=== PATIENT | male | born 1965 | race Caucasian/White ===

== ENCOUNTER → 2020-06-07 00:13 | Outpatient (CLI) | payer OTHER, SELFPAY ==
[2020-06-07 17:44] LABS: SARS-CoV-2 RNA PCR Negative
== END ==
PROVIDERS: PCP Physician Assistant; Visit Provider Internal Medicine Gastroenterology
DX: Z01.812 Encounter for preprocedural laboratory examination (principal); Z20.822 Contact with and (suspected) exposure to COVID-19
CPT/HCPCS: C9803; U0003; U0005

== ENCOUNTER 2020-06-10 00:40 | Day surgery (SDC) | payer OTHER, SELFPAY ==
[2020-05-27 13:07] VITALS: BMI 23.7
[2020-06-10] MEDS: LACTATED RINGERS 1,000 ML 150 ML IV CONT (09:03)
[2020-06-10 09:05] VITALS: BP 182/98; PULSE 89; RESP 16; TEMP 36.6; O2SAT 100; BMI 22.7
--- NOTE | 2020-06-10 09:13 | P.PNAN_ITS ---
Anes - Initial Pre Proc Eval Procedure: Operation Date: 06/10/20 10:00 Proposed Procedures p Esophagogastroduodenoscopy & Colonoscopy - Anderson Hardin MD Date/Time: 06/10/20 09:13 Surgeon: Anderson Hardin MD Pre Op Diagnosis: NAYANA Patient Data Age: 55 Gender: M Height: 5 ft 10 in Weight: 71.9 kg Last Vital Signs Temp 98 F 06/10/20 09:05 Pulse 89 06/10/20 09:05 Resp 16 06/10/20 09:05 BP 182/98 H 06/10/20 09:05 Pulse Ox 100 06/10/20 09:05 Allergies Allergy/AdvReac Type Severity Reaction Status Date / Time No Known Allergies Allergy Verified 06/10/20 08:58 Home Medications Medication Instructions Recorded Confirmed Type aspirin 81 mg PO DAILY 05/27/20 05/27/20 History clopidogrel 75 mg PO DAILY 05/27/20 05/27/20 History enalapril maleate 10 mg PO DAILY 05/27/20 05/27/20 History furosemide 20 mg PO DAILY 05/27/20 05/27/20 History metoprolol tartrate 25 mg PO BID 05/27/20 05/27/20 History Patient hx anesthesia problems: none Family hx anesthesia problems: none [facility] Past Medical History Medical History (Updated 06/10/20 @ 09:13 by Heber Adams MD) CAD (coronary artery disease) Chronic kidney disease (CKD) stage G1/A2, glomerular filtration rate (GFR) equal to or greater than 90 mL/min/1.73 square meter and albuminuria creatinine ratio between 30-299 mg/g Hyperlipidemia Hypertension Social History Social History Smoking packs per day: 1 Smoking cigarettes per day: 20.0 Years smoked: 46 Smoking pack-years: 46.00 Smoking status: Current every day smoker Tobacco type: cigarettes Alcohol intake: current Drinks per week: 2 Substance use type: does not use Living arrangements: with family Spiritual care concerns: No Anes - Eval Final PreProcedure Day of Procedure 06/10/20 09:13 Patient weight: normal Heart: regular rate and rhythm Lungs: clear to auscultation Airway: Mallampati scale class II Neurological: alert and oriented Last oral intake: >/= 8 hours ASA classification: III Emergent: no Anesthetic plan: proceed Anesthesia type and monitoring: general GIVS and standard monitoring Informed Consent: The patient's anesthetic plan and its attendant risks and benefits were discussed with the patient/family/POA. Questions were solicited and answers provided to the satisfaction of the patient/family/POA.
--- NOTE | 2020-06-10 09:14 | PM.HPGS ---
History of Present Illness History of Present Illness Consent: Risks, benefits, and alternatives have been discussed and questions answered. Patient agrees to proceed with procedure. Chief complaint: NAYANA Narrative: Dawit Marino is a 55 year old male with NAYANA, denies overt gib but never had scopes. Review of Systems Constitutional: Constitutional: Denies headache(s) and Denies weakness Eyes: Eyes: Denies blurry vision ENT: Reports Normal hearing present, Denies headache(s) and Denies neck pain Cardiovascular: Cardiovascular: Denies chest pain and Denies dyspnea Respiratory: Respiratory: Denies dyspnea Gastrointestinal: Gastrointestinal: Reports no additional gastrointestinal complaints Genitourinary: Genitourinary: Denies dysuria Musculoskeletal: Musculoskeletal: Denies neck pain Integumentary/Breasts: Skin/Breast: Denies dry skin Neurologic: Reports Normal hearing present, Denies headache(s) and Denies weakness Psychiatric: Psychiatric: Denies anxiety Endocrine: Endocrine: Denies change in body appearance Hematologic/Lymphatic: Hematologic/Lymphatic: Denies easy bleeding Allergic/Immunologic: Allergic/Immunologic: Denies urticaria PMFSH Past Medical History Medical History (Updated 06/10/20 @ 09:14 by Anderson Hardin MD) CAD (coronary artery disease) Chronic kidney disease (CKD) stage G1/A2, glomerular filtration rate (GFR) equal to or greater than 90 mL/min/1.73 square meter and albuminuria creatinine ratio between 30-299 mg/g Hepatitis C infection Hyperlipidemia Hypertension Iron deficiency anemia Social History Social History Smoking packs per day: 1 Smoking cigarettes per day: 20.0 Years smoked: 46 Smoking pack-years: 46.00 Smoking status: Current every day smoker Tobacco type: cigarettes Alcohol intake: current Drinks per week: 2 Substance use type: does not use Living arrangements: with family Spiritual care concerns: No Meds Home Medications and Allergies Home Medications Medication Instructions Recorded Confirmed Type aspirin 81 mg PO DAILY 05/27/20 05/27/20 History clopidogrel 75 mg PO DAILY 05/27/20 05/27/20 History enalapril maleate 10 mg PO DAILY 05/27/20 05/27/20 History furosemide 20 mg PO DAILY 05/27/20 05/27/20 History metoprolol tartrate 25 mg PO BID 05/27/20 05/27/20 History Allergies Allergy/AdvReac Type Severity Reaction Status Date / Time No Known Allergies Allergy Verified 06/10/20 08:58 Vital Signs Vital Signs - 24 hr 06/10/20 09:05 Temperature 98 F Pulse Rate 89 Respiratory Rate 16 Blood Pressure 182/98 H Pulse Oximetry 100 Exam Const: General: comfortable and no acute distress HENMT: General nose exam: Normal nares present Eyes: General: appearance normal, both eyes and all related structures Neck: Neck: no JVD Resp: Auscultation: clear to auscultation bilaterally Cardio: Rate: regular rate Rhythm: regular rhythm GI: Inspection: non-distended GI Palp: Yes Soft to palpation Skin: General skin exam: normal color Neuro: General: gait normal Speech: normal speech Extrem: General: normal to inspection Psych: Mental Status: mental status grossly normal Assessment and Plan Assessment and plan (1) Iron deficiency anemia: Code(s): D50.9 - Iron deficiency anemia, unspecified Status: Acute Assessment and Plan: egd and colonoscopy to assess if any gi blood loss (2) Hepatitis C infection: Code(s): B19.20 - Unspecified viral hepatitis C without hepatic coma Status: Acute Assessment and Plan: we can see him in office to discuss options of treatment (will need blood work)
[2020-06-10 09:45] VITALS: BP 160/101; PULSE 91; RESP 21; O2SAT 100
[2020-06-10 09:55] VITALS: BP 150/98; PULSE 85; RESP 17; O2SAT 100
[2020-06-10 10:05] VITALS: BP 193/96; PULSE 83; RESP 19; O2SAT 100
--- NOTE | 2020-06-10 10:52 | SUR.OPER ---
EGD START 918, END 923 COLONOSCOPY START 928, END 943
== END 2020-06-10 10:16 | disposition home or self-care (01) ==
PROVIDERS: PCP Physician Assistant; Visit Provider Internal Medicine Gastroenterology
PROC: 0DJ08ZZ Inspection of Upper Intestinal Tract, Via Natural or Artificial Opening Endoscopic (ICD-10-PCS; CPT 43235; principal; 2020-06-10 10:00)
DX: Z12.11 Encounter for screening for malignant neoplasm of colon (principal); D50.0 Iron deficiency anemia secondary to blood loss (chronic); D12.5 Benign neoplasm of sigmoid colon; K21.00 Gastro-esophageal reflux disease with esophagitis, without bleeding; K57.30 Diverticulosis of large intestine without perforation or abscess without bleeding; K64.8 Other hemorrhoids; Z79.82 Long term (current) use of aspirin; I25.10 Atherosclerotic heart disease of native coronary artery without angina pectoris; I13.10 Hypertensive heart and chronic kidney disease without heart failure, with stage 1 through stage 4 chronic kidney disease, or unspecified chronic kidney disease; E11.22 Type 2 diabetes mellitus with diabetic chronic kidney disease; N18.2 Chronic kidney disease, stage 2 (mild); E78.5 Hyperlipidemia, unspecified; F17.210 Nicotine dependence, cigarettes, uncomplicated; B19.20 Unspecified viral hepatitis C without hepatic coma
CPT/HCPCS: 43239; 45385; 88305; J2704; J7120

== ENCOUNTER 2022-10-14 15:30 | Emergency (ER) | payer OTHER, SELFPAY ==
--- NOTE | ~2022-10-14 | CT_ITS ---
CTA OF right upper extremity EXAMINATION: CTA UE RT DATE: 10/14/2022 17:47 INDICATION: Right arm redness, swelling, and pain. TECHNIQUE: Computed tomography angiography (CTA) of the right upper extremity was performed 100 mL Om nipaque 350 intravenous contrast in the arterial phase. Automated exposure control and iterative elvi nstruction technique were employed. 3-D volume rendered imaging produced by the technologist on a [employer] workstation. The dose-length product was 279.49 mGy-cm. COMPARISON: None FINDINGS: Normal osseous mineralization. No radiographic evidence of osteomyelitis. No osseous fractu re or dislocation. Degenerative changes in the wrist. The visualized arteries and veins are normal. S ubcutaneous fat stranding and edema involving the entire right upper extremity. Heterogeneous, 5.1 x 13.9 cm collection in the belly of the biceps muscle, with mild rim enhancement. IMPRESSION: Extensive subcutaneous edema in the right upper extremity, may represent cellulitis in the appropriat e clinical context. Heterogeneous, 13.9 cm collection in the belly of the biceps muscle, intramuscula r abscess is favored given the history and subcutaneous changes. Reviewed, dictated and finalized at location K. IMPRESSION: Extensive subcutaneous edema in the right upper extremity, may represent cellul itis in the appropriate clinical context. Heterogeneous, 13.9 cm collection in the belly of the biceps muscle, intramuscular abscess is favored given the hist ory and subcutaneous changes.
--- NOTE | ~2022-10-14 | US_ITS ---
EXAMINATION: US venous doppler UE RT DATE: 10/14/2022 19:17 INDICATION: Right upper extremity swelling and pain TECHNIQUE: Grayscale ultrasound images without and with compression and Doppler ultrasound images of the right upper extremity veins were obtained. COMPARISON: None. FINDINGS: The visualized portions of the right internal jugular vein, subclavian vein, axillary vein, brachial veins, basilic vein, cephalic vein, radial vein, and ulnar vein are patent. Heterogeneous echogenic c ollection in the upper arm in the area of a palpable lump measuring 5.4 x 3.6 x 9.6 cm. Scattered are as of internal flow were present. IMPRESSION: No deep venous thrombosis in the right upper extremity. 9.6 cm heterogeneous intramuscular collection in the upper arm, with vascular flow. This finding most likely represents an extensive intramuscular hematoma, with areas of vascular flow, possibly relatin g to flow within muscle tissue that is intermixed with this mass. An abscess is considered less likely given the scattered internal vascular flow. A soft tissue mass i s considered less likely given rapid onset. Reviewed, dictated and finalized at location K. IMPRESSION: No deep venous thrombosis in the right upper extremity. 9.6 cm heterogeneous intramuscular collection in the upper arm, with vascular f low. This finding most likely represents an extensive intramuscular hematoma, w ith areas of vascular flow, possibly relating to flow within muscle tissue that is intermixed with this mass. An abscess is considered less likely given the scattered internal vascular flow . A soft tissue mass is considered less likely given rapid onset.
[2022-10-14 15:46] VITALS: BP 166/92; PULSE 113; RESP 20; TEMP 37.1; O2SAT 100
--- NOTE | 2022-10-14 16:25 | ED.UPPEXIN ---
HPI - Extremity Injury (Upper) General Chief Complaint: Extremity Injury, Upper Stated Complaint: right arm pain/swelling Time Seen by Provider: 10/14/22 15:47 History of Present Illness HPI narrative: Patient is a 57-year-old male presenting with right arm pain. Patient states that for the last 2 to 3 days his upper right arm has been red, swollen, painful. States that when he tries to squeeze his right hand he has sharp pains in his wrist. States that he was rubbing his arm to help with the pain and he then developed ecchymoses. He is concerned for a blood clot. He denies recent injuries or trauma. Denies fevers or chills, chest pain, shortness of breath. Denies further complaints. Related Data Home Medications Medication Instructions Recorded Confirmed aspirin 81 mg tablet,delayed 81 mg PO DAILY 05/27/20 08/28/21 release clopidogrel 75 mg tablet 75 mg PO DAILY 05/27/20 08/28/21 enalapril maleate 10 mg tablet 10 mg PO DAILY 05/27/20 08/28/21 furosemide 20 mg tablet 20 mg PO DAILY 05/27/20 08/28/21 metoprolol tartrate 25 mg tablet 25 mg PO BID 05/27/20 08/28/21 Allergies Allergy/AdvReac Type Severity Reaction Status Date / Time No Known Allergies Allergy Verified 10/14/22 15:48 Review of Systems Review of Systems: All systems reviewed & are unremarkable except as noted in HPI and below PMFSH Past Medical History Medical History CAD (coronary artery disease) Chronic kidney disease (CKD) stage G1/A2, glomerular filtration rate (GFR) equal to or greater than 90 mL/min/1.73 square meter and albuminuria creatinine ratio between 30-299 mg/g Hepatitis C infection Hyperlipidemia Hypertension Iron deficiency anemia Social History Social History Smoking packs per day: 1 Smoking cigarettes per day: 20.0 Years smoked: 46 Smoking pack-years: 46.00 Smoking status: Current every day smoker Tobacco type: cigarettes Alcohol intake: current Drinks per week: 2 Substance use type: does not use Living arrangements: with family Spiritual care concerns: No Exam Narrative: GENERAL: Well-appearing, well-nourished, and in no acute distress. HEAD: Normocephalic, atraumatic. EYES: PERRLA and EOMI. ENT: Nares clear, no rhinorrhea or epistaxis. Mucous membranes moist. NECK: Supple. CHEST: Clear to auscultation. No respiratory distress. HEART: Regular rate and rhythm. Normal peripheral pulses. ABDOMEN: Soft, nontender, nondistended EXTREMITIES: RUE with erythema and edema of upper arm along biceps, ecchymoses noted posterior upper extremity; shoulder ROM intact, elbow and wrist ROM limited 2/2 pain; distal pulses 2+; no crepitus, compartments feel soft SKIN: Warm, dry, no rash. NEURO: No focal deficits. Alert and oriented x3. PSYCH: Normal mood and affect. Course Vital Signs Vital signs: Vital Signs Temperature 98.7 F 10/14/22 15:46 Pulse Rate 113 H 10/14/22 15:46 Respiratory Rate 20 10/14/22 15:46 Blood Pressure 166/92 H 10/14/22 15:46 Pulse Oximetry 100 10/14/22 15:46 Oxygen Delivery Room Air 10/14/22 15:46 Temperature 98.7 F 10/14/22 15:46 Pulse Rate 74 10/14/22 19:45 Respiratory Rate 18 10/14/22 19:45 Blood Pressure 156/77 H 10/14/22 19:45 Pulse Oximetry 100 10/14/22 19:45 Oxygen Delivery Room Air 10/14/22 15:46 MDM - Extremity Injury (Upper) MDM Narrative Medical decision making narrative: Patient is a 57-year-old male presenting with right upper extremity swelling, redness, pain. Patient is tachycardic, otherwise vitals are within normal limits. Exam is remarkable for the above. CTA upper extremity is concerning for a 5 x 14 cm abscess within the belly of the biceps. There is associated cellulitis. No gas is noted. Patient does have a white count of nearly 15. Broad-spectrum antibiotics have been ordered. I spoke with ou
[2022-10-14 17:02] LABS: Basophils Absolute Auto 0.1 K/mm3 (0.0-0.1); Basophils Percent Auto 0.8 % (0.2-1.2); Eosinophils Absolute Auto 0.1 K/mm3 (0-0.3); Eosinophils Percent Auto 0.9 % (0-4.4); Hematocrit 36.3 % (42.0-52.0); Hemoglobin 11.8 g/dL (14.0-18.0); Immature Granulocyte Absolute 0.07 K/mm3 (0.00-0.031); Immature Granulocyte Percent A 0.5 % (0-0.5); Lymphocytes Absolute Auto 2.36 K/mm3 (0.9-3.2); Lymphocytes Percent Auto 16.2 % (18.3-44.2); Mean Corpuscular HGB Conc 32.5 g/dl (32-36); Mean Corpuscular Hemoglobin 29.8 pg (26-34); Mean Corpuscular Volume 91.7 fl (80-100); Mean Platelet Volume 10.3 fl (7.4-10.4); Monocytes Absolute Auto 1.9 K/mm3 (0.1-0.6); Monocytes Percent Auto 13.2 % (2.6-8.5); Neutrophils Percent Auto 68.4 % (45.5-73.1); Platelet Count Result 293 k/mm3 (150-375); Red Blood Count 3.96 M/mm3 (4.6-6.20); Red Cell Distribution Width 13.4 % (11.5-14.5); White Blood Count 14.6 K/mm3 (4.5-10.0)
[2022-10-14 17:13] LABS: Prothrombin Time 13.7 Seconds (11.1-14.7)
[2022-10-14 17:14] LABS: Partial Thromboplastin Time 27.5 SECONDS (22.3-36.8)
[2022-10-14] MEDS: HYDROmorphone HCL INJ (*CRX) 1 MG/ML SYR 0.5 MG IV PUSH ×2 (17:28→19:09)
[2022-10-14 17:29] LABS: Alanine Aminotransferase 30 U/L (6-50); Albumin Level 3.5 g/dL (3.5-5.1); Alkaline Phosphatase 62 U/L (38-126); Anion Gap 6 mmol/L (8-16); Aspartate Amino Transferase 42 U/L (17-59); Bilirubin,Total 0.7 mg/dL (0.2-1.3); Blood Urea Nitrogen 17 mg/dL (9-20); Calcium 8.4 mg/dL (8.4-10.2); Carbon Dioxide 22 mmol/L (22-30); Chloride 106 mmol/L (98-107); Estimated CRCL calculation 70 ml/min; Estimated Glomerular Filt Rate > 60; Glucose 118 mg/dL (65-110); Sodium 134 mmol/L (137-145)
[2022-10-14 18:19] VITALS: BP 147/83; PULSE 76; RESP 20; O2SAT 99
[2022-10-14 19:11] LABS: CRP 4.9 mg/dL (<1.0); Creatine Kinase 71 U/L (55-170)
[2022-10-14] MEDS: CEFEPIME 2 GM/NS 50 ML 2 GM/50 ML BAG IVPB (19:29)
[2022-10-14] MEDS: metroNIDAZOLE 500 MG/ISO 100ML 500 MG/100 ML BAG 100 MG IVPB (19:31)
[2022-10-14] MEDS: VANCOMYCIN 1,250 MG/NS 250 ML 1,250 MG/250 ML BAG 166.67 MG IVPB (19:33)
[2022-10-14 19:35] LABS: Erythrocyte Sedimentation Rate 58 mm/hr (0-20)
[2022-10-14 19:39] LABS: Lactic Acid Reflex 1.3 mmol/L (0.7-2.0)
[2022-10-14 19:45] VITALS: BP 156/77; PULSE 74; RESP 18; O2SAT 100
== END 2022-10-14 21:19 | disposition short-term general hospital (02) ==
PROVIDERS: Emergency Provider Emergency Medicine; PCP Physician Assistant
DX: M60.021 Infective myositis, right upper arm (principal); I25.10 Atherosclerotic heart disease of native coronary artery without angina pectoris; I12.9 Hypertensive chronic kidney disease with stage 1 through stage 4 chronic kidney disease, or unspecified chronic kidney disease; N18.9 Chronic kidney disease, unspecified
CPT/HCPCS: 36415; 73206; 80053; 82550; 83605; 85025; 85610; 85652; 85730; 86140; 87040; 93971; 96365; 96366; 96367; 96375; 96376; 99285; J0692; J1170; J1836; J3370; Q9967

== ENCOUNTER 2024-05-06 14:06 | Emergency (ER) | payer OTHER, SELFPAY ==
[2024-05-06 14:08] VITALS: BP 158/90; PULSE 119; RESP 16; TEMP 36.4; O2SAT 100
--- OUTSIDE RECORDS SUMMARY | 2024-05-06 14:09 | XMS_ITS | Patient Health Record ---
Author Organization [facility] Office Address [address] [place] [address] Care Team Providers Care Asbestos Pipe Supervisor Name Role Phone Jesus Alberto Jose Unavailable [phone] REASON FOR REFERRAL No Information MEDICATIONS Medication SIG (Take, Route, Frequency, Duration) Notes Start Date End Date Status Allopurinol 100 MG 1 tablet Orally Once a day for 90 day(s) 10/22/2023 07/18/2024 Active Calcitriol 0.25 MCG 1 capsule Orally Onc e a day for 90 day(s) 10/22/2023 07/18/2024 Active Ergocalciferol 1.25 MG (37773 UT) 1 capsule Orally Once a week for 90 day(s) 10/22/2023 07/18/2024 Active PROBLEMS Problem Type ICD Code Onset Dates Problem Status W/U Status Risk SNOMED Code Notes Problem Anxiety disorder, unspecified (F41.9) Active confirmed Anxiety disorde r (215145678) Problem Chronic kidney disease, stage 2 (mild) (N18.2) Active confirmed Chronic kidne y disease stage 2 (605565361) Problem Renal osteodystrophy (N25.0) Active confirmed Renal osteodystrophy (49130117) Problem Chronic fatigue, unspecified (R53.82) Active confirmed Chronic fatigue syndrome (disorder) (53216717) Problem Proteinuria, unspecified (R80.9) Active confirmed Proteinuria (78685197) Problem Essential hypertension (I10) Active confirmed Essential hypertension (82307024) Problem Chronic kidney disease, stage 3b (N18.32) Active confirmed Chronic kidney disease stage 3B (disorder) (918395438) Encounters Encounter Location Date Provider Diagnosis [facility] [address] [facility] [address] [place] [address] 08/18/2023 Jose Granda Chronic kidney disea se, stage 2 (mild) N18.2 ; Anxiety disorder, unspecified F41.9 ; Chronic fatigue, unspecified R53.82 ; Essential hypertension I10 ; Proteinuria, unspecified R80.9 and Renal osteodystrophy N25.0 [facility] [address] [place] [address] 09/15/2023 Jose Granda Chronic kidney disea se, stage 2 (mild) N18.2 ; Anxiety disorder, unspecified F41.9 ; Chronic fatigue, unspecified R53.82 ; Essential hypertension I10 ; Proteinuria, unspecified R80.9 and Renal osteodystrophy N25.0 [facility] [address] [place] [address] 10/22/2023 Jose Granda Chronic kidney disea se, stage 3b N18.32 ; Essential hypertension I10 ; Anxiety disorder, unspecified F41.9 ; Renal osteodystrophy N25.0 ; Proteinuria, unspecified R80.9 and Chronic fatigue, unspecified R53.82 [facility] [address] [place] [address] 11/24/2023 Jose Granda [facility] [address] [place] [address] 12/22/2023 Jose Don [id number] [place] [address] 10/22/2023 Jose Granda ASSESSMENTS Encounter Date Diagnosis Assessment Notes Treatment Notes Treatment Clinical Notes Section Notes 08/18/2023 Chronic kidney disease, stage 2 (mild) (ICD-10 - N18.2) 09/15/2023 Chronic kidney disease, stage 2 (mild) (ICD-10 - N18.2) 10/22/2023 Chronic kidney disease, stage 3b (ICD-10 - N18.32) 08/18/2023 Anxiety disorder, unspecified (ICD-10 - F41.9) 09/15/2023 Anxiety disorder, unspecified (ICD-10 - F41.9) 10/22/2023 Essential hypertension (ICD-10 - I10) 10/22/2023 Anxiety disorder, unspecified (ICD-10 - F41.9) 09/15/2023 Chronic fatigue, unspecified (ICD-10 - R53.82) 08/18/2023 Chronic fatigue, unspecified (ICD-10 - R53.82) 08/18/2023 Essential hypertension (ICD-10 - I10) 09/15/2023 Essential hypertension (ICD-10 - I10) 10/22/2023 Renal osteodystrophy (ICD-10 - N25.0) 10/22/2023 Proteinuria, unspecified (ICD-10 - R80.9) 09/15/2023 Proteinuria, unspecified (ICD-10 - R80.9) 08/18/2023 Proteinuria, unspecified (ICD-10 - R80.9) 08/18/2023 Renal osteodystrophy (ICD-10 - N25.0) 09/15/2023 Renal osteodystrophy (ICD-10 - N25.0) 10/22/2023 Chronic fatigue, unspecified (ICD-10 - R53.82) PLAN OF TREATMENT No Information
--- OUTSIDE RECORDS SUMMARY | 2024-05-06 14:09 | XMS_ITS ---
Author Organization [facility] Address [address] [facility] [address] [place] [address] Care Team Providers Care Playground Equipment Erector Name Role Phone Jose Granda Unavailable [phone] Encounters Encounter Location Date Provider Diagnosis [facility] [address] [facility] [address] [place] [address] 11/24/2023 Jose Granda PLAN OF TREATMENT No Information Progress Notes * Dawit MARINODOB:[birth year] (59 yo M)Acc No.[id number]:11/24/2023 Progress Notes Patient: Dawit MARINO Provider: MD SHAAN, Mickie.Trent.C.P, F.A.S.N. 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 Date: 11/24/2023
--- OUTSIDE RECORDS SUMMARY | 2024-05-06 14:09 | XMS_ITS | Continuity of Care Document ---
Author Organization [facility] Address [address] [facility] [address] [place] [address] Phone Care Team Providers Care Lotus Notes Developer Name Role Phone Gus Sims Unavailable Unavailable Procedures Procedure Date Eye Exam Established Pt Remove Foreign Body From Eye Office/outpatient Visit, Est Post-op Follow-up Visit Post-op Follow-up Visit Post-op Follow-up Visit Clear Lens Exchange-Premium Lens 2007 Post-op Follow-up Visit Dec- Post-op Follow-up Visit Oct- Clear Lens Exchange-Premium Lens Oct-2007 No Charge Refractive Evaluation 008 Office/outpatient Visit, Est Office/outpatient Visit, Est Corneal Topography Advance Directives Directive Yes / No Effective Date File Name No Information Encounters Encounter Description Practice Location Reason(s) For Visit Diagnoses Date Provider Providers Copied on Encounter [facility], [address] [place] [address] [address], [place], [place], [id number], [place] tel:[phone] SEC [facility] No Information 9-200 9 Levi Weber. [address] [facility] [address], [place], [address], [place]. tel:[phone] Office/outpat ient Visit, Est [facility], [address], [place], [place], [id number], tel:[phone] SEC [facility] No Information Mar-2 4-200 9 Krishnasamy Gus. [address] [facility] [address], [place], [address], [place]. tel:[phone] [facility] Eye [facility], [address], [place], [place], [id number], [place] tel:[phone] SEC [facility] No Information Dec-1 5-200 8 Krishnasamy Gus. [address] [facility] [address], [place], [address], [place]. tel:[phone] [facility], [address], [place], [place], [id number], [place] tel:[phone] [facility] No Information Nov-1 1-200 8 Krishnasamy Gus. [address] [facility] [address], [place], [address], [place]. tel:[phone] [facility], [address], [place], [place], [id number], [place] tel:[phone] [facility] [place] No Information Oct-3 1-200 8 Krishnasamy Gus. [address] [facility] [address], [place], [address], [place]. tel:[phone] [facility], [address], [place], [place], [id number], [place] tel:[phone] [facility] No Information Oct-3 0-200 8 Krishnasamy Gus. [address] [facility] [address], [place], [address], [place]. tel:[phone] [facility], [address], [place], [place], [id number], [place] tel:[phone] SEC [facility] No Information Oct-2 4-200 8 Krishnasamy Gus. [address] [facility] [address], [place], [address], [place]. tel:[phone] [facility], [address], [place], [place], [id number], [place] tel:[phone] [facility] [place] No Information Oct-1 7-200 8 Krishnasamy Gus. [address] [facility] [place] [address], [place], [address], [place]. tel:[phone] [facility], [address], [place], [place], [id number], [place] tel:[phone] [facility] No Information Oct-1 6-200 8 Krishnasamy Gus. [address] [facility] [place] [address], [place], [facility], [place]. tel:[phone] [facility], [address] [place] [address] [address], [place], [place], [id number], [place] tel:[phone] SEC [facility] No Information Sep-2 4-200 8 Krishnasamy Gus. [address] [facility] [place] [address], [place], [facility], [place]. tel:[phone] Office/outpat ient Visit, [facility] Eye [facility], [address] [place] [address] [address], [place], [place], [id number], [place] tel:[phone] [facility] [place] No Information Sep-0 9-200 8 Krishnasamy Gus. [address] [facility] [place] [address], [place], [address], [place]. tel:[phone] Office/outpat ient Visit, [facility], [address], [place], [place], [id number], [place] tel:[phone] [facility] [place] No Information Sep-0 3-200 8 Doisy Edward. [address], [place], [address], [place]. tel:[phone] [facility], [address], [place], [place], [address], [place] tel:[phone] SEC [facility] No Information 8 [facility]. [address] [facility], [place], [place], [id number], [place]. tel:[phone] Referring Provider: Mahamed Newman [facility] [address], [place], [address]. tel:[phone] Family History Family Member Type Diagnosis Age At Onset No Information Payers Payer name Insurance type Covered libertarian ID Authoriza tion(s) No Information Social History Type Description Quantity Date Captured Comments Sex Male Smoking Status No Information Chief Complaint And Reason For Visit No Information Reason For Referral Reason For Referral No Information History Of Present Illness Encounter Date Complaint History Of Prese nt Illness No Information Functional Status Date Functional Assessmen t No Information Instructions Date Instruction Additional Infor mation No Information Assessments Type Assessment Date No Information Patient Care Teams Name Effective Dates (start - stop) Status Members No Information
--- OUTSIDE RECORDS SUMMARY | 2024-05-06 14:09 | XMS_ITS ---
Author Organization [facility] Address [address] [facility] [address] [place] [address] Care Team Providers Care Bag Worker Name Role Phone Jose Granda Unavailable [phone] Encounters Encounter Location Date Provider Diagnosis [facility] [address] [facility] [address] [place] [address] 12/22/2023 Jose Granda PLAN OF TREATMENT No Information Progress Notes * Dawit MARINODOB:[birth year] (59 yo M)Acc No.[id number]:12/22/2023 Progress Notes Patient: Dawit MARINO Provider: MD SHAAN, Mickie.Trent.C.P, F.A.S.N. :1965 Age:58 Y Sex:Male Date:12/22/2023 Address:[address] [place], [place] [id number] Subjective: * Chief Complaints: * * Medical History: Objective: Assessment: Plan: * Treatment: * Billing Information: * Visit Code: * Procedure Codes: * OND MILL OPERATOR Sign off status: Pending * Provider: MD SHAAN, Mickie.Trent.C.P, F.A.S.N. Date: 12/22/2023
--- OUTSIDE RECORDS SUMMARY | 2024-05-06 14:09 | XMS_ITS | Referral Summary ---
Author Organization [facility] Address [facility] [place] [address] Care Team Providers Care Wing Coverer Name Role Phone Karla Eddy PA-C Primary Care Provide r Source Comments [facility],non-owned Affiliates and Associated Physician Practices is amultiple site organization consisting of ambulatory clinics and hospital sitesin [place], [place], [place] and [place]. This disclosure is being madepursuant to the Care Everywhere program and may not contain all information available regarding this patient. Last updated 17.[facility] [employer] Allergies No known active allergies Medications * Be aware that medications may not be up to date on this document. Alwaysverify current medications with the patient. Medication Sig Dispensed Refills Start Date End Date Status acetaminophen (TYLENOL) 325 MG tablet Take 2 (two) tablets by mouth every 6 hours Maximum allowable Acetaminophen amount = 4 Grams (4000 mg) / 24 hours. 06/12/2021 Active aspirin (ASPIRIN) 81 MG chew tablet Take 1 (one) tablet by mouth once daily 06/13/2021 Active albuterol HFA (PROVENTIL HFA) 108 (90 Base) MCG/ACT inhaler Inhale 2 (two) puffs by mouth every 4 hours as needed 6.7 g 06/12/2021 Active enalapril (VASOTEC) 10 MG tablet Take 1 (one) tablet by mouth once daily 06/13/2021 Active metoprolol tartrate (LOPRESSOR) 25 MG tablet Take 1 (one) tablet by mouth 2 times daily 06/12/2021 Active clopidogrel (PLAVIX) 75 MG tablet Take 1 (one) tablet by mouth once daily 06/13/2021 Active furosemide (LASIX) 20 MG tablet furosemide 20 mg tablet 02/12/2021 Active amLODIPine (NORVASC) 5 MG tablet Take 1 (one) tablet by mouth once daily Active senna (SENOKOT) 8.6 MG tablet Take by mouth once daily Active omeprazole (PRILOSEC) 40 MG capsule Take 1 (one) capsule by mouth daily before breakfast Active Gauze Pads & Dressings (Gauze Dressing) 4 X4 PADS Use 1 Pad 2 times daily 1 Each 10/16/2022 Active Active Problems Problem Noted Date Diagnosed Date Abscess 10/15/2022 Arm swelling 10/15/2022 Cellulitis of right upper extremity 10/15/2022 Acute blood loss anemia 06/12/2021 Impaired mobility and ADLs 06/12/2021 Acute pain due to trauma 06/12/2021 Trauma 06/11/2021 Multiple closed fractures of ribs of left side 0 06/11/2021 Closed fracture of transverse process of lumbar vertebra 06/11/2021 L1 vertebral fracture 06/11/2021 Immunizations Name Administration Dates Next Due Financetesetudes primary monoval ent 12+ yr 0.3mL Purple cap 03/25/2021,03/04/2021 INFLUENZA VACCINE, QUADR. (F LUZONE; FLULAVAL; FLUARIX; AFLURIA QUADRIVALENT; 6MO+), 0.5 ML (IIV4) 06/12/2021 Social History Tobacco Use Types Packs/Day Years Used Date Smoking Tobacco: Every Day Cigarettes 1 15 Smokeless Tobacco: Never Tobacco Cessation:Ready to Q uit: Not Asked; Counseling Given: No Alcohol Use Standard Drinks/Week Comments Yes 0 (1 standard drink = 0.6 oz pur e alcohol) 6 pack/week AUDIT-C Answer Date Recorded Q1: How often do you have a drink containing alc ohol? Monthly or less 06/11/2021 Q2: How many drinks containi ng alcohol do you have on a typical day when you are drinking? 1 or 2 06/11/2021 Q3: How often do you have si x or more drinks on one occasion? Never 06/11/2021 Sex and Gender Information Value Date Recorded Sex Assigned at Not on file Gender Identity Not on file Sexual Orientation Not on file Last Filed Vital Signs Vital Sign Reading Time Taken Comments Blood Pressure 157/84 11/11/2022 2:19 PM CDT Pulse 83 11/11/2022 2:19 PM CDT Temperature 36.3 C (97.3 F) 11/11/2022 2:19 PM CDT Respiratory Rate 16 10/16/2022 4:11 AM CDT Oxygen Saturation 98% 11/11/2022 2:19 PM CDT Inhaled Oxygen Concentration - - Weight 69.9 kg (154 lb) 11/11/2022 2:19 PM CDT Height 180.3 cm (5' 11 ) 11/11/2022 2:19 PM CDT Body Mass Index 21.48 11/11/2022 2:19 PM CDT Functional Status Functional Status Response Date of Assess ment Is person deaf or have serious hearing difficult y? No 10/15/2022 Is person blind or have serious difficulty seein g? No 10/15/2022 Does person have serious dif ficulty walking/climbing stairs? No 10/15/2022 Does person have difficulty dressing/bathing? No 10/15/2022 Does person have difficulty doing errands alone? No 10/15/2022 Cognitive Status Response Date of Assessm ent Does person have difficulty concentrating/remembering/making decisions? No 10/15/2022 Plan of Treatment Not on file Procedures Procedure Name Priority Date/Time Associated Diagnosis Comments LIPID PROFILE Routine 10/15/2022 8:26 AM CDT from Last 3 Months or Most Recently Relevant to Health Maintenance Results * (ABNORMAL) LIPID PROFILE (10/15/2022 8:26 AM CDT) [facility] Signature Cholesterol Total 140 <200 mg/dL 10/15/2022 9:02 AM CDT [facility] HDL 35(L) >40 mg/dL 10/15/2022 9:02 AM CDT [facility] Comment: ATP III Classification of HDL Cholesterol: <40 mg/dL: Considered a major risk factor. >60 mg/dL: Considered a negative risk factor. LDL Calculated 94 <100 mg/dL 10/15/2022 9:02 AM T [facility] Comment: ATP III Classification of LDL Cholesterol: <100 mg/dL: Optimal 100 - 129 mg/dL: Near Optimal/Above Optimal 130 - 159 mg/dL: Borderline High 160 - 189 mg/dL: High >190 mg/dL: Very High Triglycerides 53 <150 mg/dL 10/15/2022 9:02 AM CDT [facility] Comment: ATP III Classification of Triglycerides: <150 mg/dL: Normal 150 - 199 mg/dL: Borderline High 200 - 400 mg/dL: High >500 mg/dL: Very High Blood BLOOD SPECIMEN / Unknown Lab Venipuncture / Unknown 10/15/2022 8:26 AM CDT 10/15/2022 8:31 AM CDT Gee Real MD LAB - CHEMISTRY VITO Gillespie Organization Address City/State/[facility] Co de Phone Number [facility] [address] [place] [address], [facility] [phone] from Last 3 Months or Most Recently Relevant to Health Maintenance Advance Directives * Full Code (Latest Code Status on File) Date Activated Date Inactivated Comments 10/15/2022 1:42 AM 10/16/2022 9:13 AM * Full Code Date Activated Date Inactivated Comments 06/11/2021 9:53 AM 06/12/2021 7:12 PM * Full Code Date Activated Date Inactivated Comments 02/21/2009 4:28 PM 02/22/2009 5:44 AM Care Teams Wing Coverer Relationship Specialty Start Date End Date Karla Eddy PA-C [address] [place] [id number] [facility] - General 07/17/20
--- OUTSIDE RECORDS SUMMARY | 2024-05-06 14:09 | XMS_ITS | Patient Health Summary ---
Author Organization [facility] Address [facility] [place] [address] Care Team Providers Care Alining Inspector Name Role Phone Karla Eddy PA-C Primary Care Provide r Note from [facility],non-owned Affiliates and Associated Physician Practices is amultiple site organization consisting of ambulatory clinics and hospital sitesin [place], [place], [place] and [place]. This disclosure is being madepursuant to the Care Everywhere program and may not contain all information available regarding this patient. Last updated 17.[facility] Allergies No known active allergies Medications * Be aware that medications may not be up to date on this document. Alwaysverify current medications with the patient. * acetaminophen (TYLENOL) 325 MG tablet(Started 06/12/2021) Take 2 (two) tablets by mouth every 6 hours Maximum allowable Acetaminophen amount = 4 Grams (4000 mg) / 24 hours. * aspirin (ASPIRIN) 81 MG chew tablet(Started 06/13/2021) Take 1 (one) tablet by mouth once daily * albuterol HFA (PROVENTIL HFA) 108 (90 Base) MCG/ACT inhaler(Started 06/12/2021) Inhale 2 (two) puffs by mouth every 4 hours as needed * enalapril (VASOTEC) 10 MG tablet(Started 06/13/2021) Take 1 (one) tablet by mouth once daily * metoprolol tartrate (LOPRESSOR) 25 MG tablet(Started 06/12/2021) Take 1 (one) tablet by mouth 2 times daily * clopidogrel (PLAVIX) 75 MG tablet(Started 06/13/2021) Take 1 (one) tablet by mouth once daily * furosemide (LASIX) 20 MG tablet(Started 02/12/2021) furosemide 20 mg tablet * amLODIPine (NORVASC) 5 MG tablet Take 1 (one) tablet by mouth once daily * senna (SENOKOT) 8.6 MG tablet Take by mouth once daily * omeprazole (PRILOSEC) 40 MG capsule Take 1 (one) capsule by mouth daily before breakfast * Gauze Pads & Dressings (Gauze Dressing) 4 X4 PADS(Started 10/16/2022) Use 1 Pad 2 times daily Active Problems Problem Noted Date Diagnosed Date Abscess 10/15/2022 Arm swelling 10/15/2022 Cellulitis of right upper extremity 10/15/2022 Acute blood loss anemia 06/12/2021 Impaired mobility and ADLs 06/12/2021 Acute pain due to trauma 06/12/2021 Trauma 06/11/2021 Multiple closed fractures of ribs of left side 0 06/11/2021 Closed fracture of transverse process of lumbar vertebra 06/11/2021 L1 vertebral fracture 06/11/2021 Immunizations * Covid Pfizer primary monovalent 12+ yr 0.3mL Purple cap(Given 03/25/2021, 03/04/2021) * INFLUENZA VACCINE, QUADR. (FLUZONE; FLULAVAL; FLUARIX; AFLURIA QUADRIVALENT; 6MO+), 0.5 ML (IIV4)(Given 06/12/2021) Social History Tobacco Use Types Packs/Day Years [...] Mass Index 21.48 11/11/2022 2:19 PM CDT Procedures * BASIC METABOLIC PANEL (CALCIUM TOTAL)(Performed 10/16/2022) * MAGNESIUM BLOOD(Performed 10/16/2022) * PHOSPHORUS BLOOD(Performed 10/16/2022) * CBC W/O DIFFERENTIAL(Performed 10/16/2022) * XR SHOULDER RIGHT 2VW OR MORE(Performed 10/15/2022) Performed for Acute pain due to trauma * XR HUMERUS RIGHT 2VW OR MORE(Performed 10/15/2022) Performed for Acute pain due to trauma * XR FOREARM RIGHT 2VW OR MORE(Performed 10/15/2022) Performed for Acute pain due to trauma * XR WRIST RIGHT 2VW(Performed 10/15/2022) Performed for Acute pain due to trauma * C-REACTIVE PROTEIN(Performed 10/15/2022) * ERYTHROCYTE SEDIMENTATION RATE(Performed 10/15/2022) * XR ELBOW RIGHT 3VW OR MORE(Performed 10/15/2022) Performed for Acute pain due to trauma * LIPID PROFILE(Performed 10/15/2022) * BASIC METABOLIC PANEL (CALCIUM TOTAL)(Performed 10/15/2022) * MAGNESIUM BLOOD(Performed 10/15/2022) * PHOSPHORUS BLOOD(Performed 10/15/2022) * CULTURE WOUND+GRAM STAIN(Performed 10/15/2022) * CULTURE ANAEROBE(Performed 10/15/2022) * IRRIGATION/DEBRIDEMENT EXTREMITY(Performed 10/15/2022) Performed for Abscess * ENDOTRACHEAL TUBE NOTE(Performed 10/15/2022) * CULTURE BLOOD(Performed 10/14/2022) * TYPE + SCREEN PANEL(Performed 10/14/2022) * CULTURE BLOOD(Performed 10/14/2022) * LACTIC ACID BLOOD(Performed 10/14/2022) * CBC W AUTO DIFFERENTIAL(Performed 10/14/2022) * COMPREHENSIVE METABOLIC PANEL(Performed 10/14/2022) * XR LUMBAR SPINE 2 OR 3VW(Performed 07/03/2021) Performed for Orthopedic aftercare * CARDIAC EKG ORDER(Performed 06/13/2021) * PHOSPHORUS BLOOD(Performed 06/12/2021) * MAGNESIUM BLOOD(Performed 06/12/2021) * BASIC METABOLIC PANEL (CALCIUM TOTAL)(Performed 06/12/2021) * CBC W/O DIFFERENTIAL(Performed 06/12/2021) * XR CHEST 1VW PORTABLE(Performed 06/12/2021) Performed for Closed fracture of multiple ribs of left side, initial encounter * URINE DRUG SCREEN IMMUNOASSAY(Performed 06/12/2021) * XR LUMBAR SPINE 2 OR 3VW(Performed 06/11/2021) Performed for Closed fracture of multiple ribs of left side, initial encounter, Closed fracture of transverse process of lumbar vertebra, initial encounter ([facility]) * CBC W/O DIFFERENTIAL(Performed 06/11/2021) * BLOOD TYPE VERIFICATION(Performed 06/11/2021) * EKG 12-LEAD(Performed 06/11/2021) Performed for Trauma * XR PELVIS 1 OR 2VW(Performed 06/11/2021) Performed for Trauma * XR CHEST 1VW PORTABLE(Performed 06/11/2021) Performed for Trauma * CT CHEST ABDOMEN PELVIS WO CONT(Performed 06/11/2021) Performed for Trauma * CT LUMBAR SPINE WO CONTRAST(Performed 06/11/2021) Performed for Trauma * CT THORACIC SPINE WO CONTRAST(Performed 06/11/2021) Performed for Trauma * CT CERVICAL SPINE WO CONTRAST(Performed 06/11/2021) Performed for Trauma * CT HEAD WO CONTRAST(Performed 06/11/2021) Performed for Trauma * TYPE + SCREEN PANEL(Performed 06/11/2021) * TEG 6S PLATELET MAPPING(Performed 06/11/2021) * TEG 6 GLOBAL HEMOSTASIS W/ LYSIS(Performed 06/11/2021) * PTT SLH(Performed 06/11/2021) * PT-INR [facility](Performed 06/11/2021) * CK BLOOD(Performed 06/11/2021) * CBC W AUTO DIFFERENTIAL(Performed 06/11/2021) * BASIC METABOLIC PANEL (CALCIUM TOTAL)(Performed 06/11/2021) * ALCOHOL ETHYL BLOOD(Performed 06/11/2021) * CREATININE - POCT INTERFACED(Performed 06/11/2021) * CARDIAC RHYTHM STRIP ORDER(Performed 02/25/2009) * XR SPINE 1 VIEW(Performed 02/21/2009) Performed for Back Pain Results * (ABNORMAL) CBC W/O DIFFERENTIAL (10/16/2022 1:43 AM CDT) Only the most recent of3 resultswithin the time period is included. WBC 18.5(H) 3.5 - 10.5 10 3/uL 10/16/2022 2:16 AM [facility] RBC 3.15(L) 4.30 - 5.70 10 6/uL 10/16/2022 2:16 AM [facility] Hemoglobin 9.3(L) 12.0 - 17.6 g/dL 10/16/2022 2:16 AM [facility] Hematocrit 28.0(L) 35.2 - 51.7 % 10/16/2022 2:16 AM [facility] MCV 88.9 80.7 - 98.3 fL 10/16/2022 2:16 AM [facility] MCH 29.5 26.7 - 34.0 pg 10/16/2022 2:16 AM [facility] MCHC 33.2 30.8 - 35.9 g/dL 10/16/2022 2:16 AM [facility] RDW-SD 42.7 36.0 - 50.0 fL 10/16/2022 2:16 AM [facility] RDW-CV 13.2 11.2 - 14.8 % 10/16/2022 2:16 AM [facility] Platelet Count 281 150 - 400 10 3/uL 10/16/2022 2:16 AM [facility] MPV 10.5 9.4 - 12.9 fL 10/16/2022 2:16 AM [facility] nRBC Absolute 0.00 0 10 3/uL 10/16/2022 2:16 AM [facility] nRBC Auto 0.0 0 /100 WBC 10/16/2022 2:16 AM [facility] Blood BLOOD SPECIMEN / Unknown Lab Venipuncture / Unknown 10/16/2022 1:43 AM CDT 10/16/2022 2:03 AM CDT Linda Young PA-C LAB - HEMATOLOGY ORDERABLES [facility] [address] [place] [address], [facility] [phone] * (ABNORMAL) BASIC METABOLIC PANEL (CALCIUM TOTAL) (10/16/2022 1:43 AM CDT) Only the most recent of4 resultswithin the time period is included. BUN 22 7 - 26 mg/dL 10/16/2022 2:28 AM [facility] Creatinine 1.16 0.71 - 1.16 mg/dL 10/16/2022 2:28 AM [facility] Sodium 136 136 - 145 mmol/L 10/16/2022 2:28 AM [facility] Potassium 3.9 3.5 - 4.5 mmol/L 10/16/2022 2:28 AM [facility] Chloride 109(H) 98 - 107 mmol/L 10/16/2022 2:28 AM [facility] CO2 25 22 - 29 mmol/L 10/16/2022 2:28 AM [facility] Glucose 135(H) 70 - 115 mg/dL 10/16/2022 2:28 AM [facility] Calcium 8.2(L) 8.4 - 10.2 mg/dL 10/16/2022 2:28 AM [facility] Anion Gap 6(L) 8 - 18 10/16/2022 2:28 AM [facility] BUN/Creatinine Ratio 19 7 - 23 10/16/2022 2:28 AM [facility] Osmolality Calculated 287 270 - 300 mOsm/kg 10/16/2022 2:28 AM [facility] eGFR by CKD-EPI 73(L) >=90 mL/min/1.7 3 m2 10/16/2022 2:28 AM CDT [facility] Blood BLOOD SPECIMEN / Unknown Lab Venipuncture / Unknown 10/16/2022 1:43 AM CDT 10/16/2022 2:03 AM CDT Gee Real MD LAB - CHEMISTRY VITO MANZO Performing Organization Address [facility]/ZIP Co de Phone Number [address] [address], [facility] [phone] * (ABNORMAL) PHOSPHORUS BLOOD (10/16/2022 1:43 AM CDT) Only the most recent of3 resultswithin the time period is included. Phosphorus 2.7(L) 2.8 - 5.1 mg/dL 10/16/2022 2:28 AM CDT [facility] Blood BLOOD SPECIMEN / Unknown Lab Venipuncture / Unknown 10/16/2022 1:43 AM CDT 10/16/2022 2:03 AM CDT Gee Real MD LAB - CHEMISTRY VITO MANZO Performing Organization Address [facility] Co de Phone Number [address] [address], [facility] [phone] * MAGNESIUM BLOOD (10/16/2022 1:43 AM CDT) Only the most recent of3 resultswithin the time period is included. Magnesium 1.8 1.6 - 2.6 mg/dL 10/16/2022 2:28 AM CDT [facility] Blood BLOOD SPECIMEN / Unknown Lab Venipuncture / Unknown 10/16/2022 1:43 AM CDT 10/16/2022 2:03 AM CDT Gee Real MD LAB - CHEMISTRY VITO MANZO Performing Organization Address City/[facility]/ZIP Co de Phone Number [address] [address], [facility] [phone] * XR SHOULDER RIGHT 2VW OR MORE (10/15/2022 3:06 PM CDT) Anatomical Region Laterality Modality Upper Extremity Radiographic Samantha ging 10/15/2022 3:14 PM CDT Narrative 10/15/2022 4:06 PM CDT PROCEDURE: XR SHOULDER RIGHT 2VW OR MORE DATE/TIME OF EXAM: 10/15/2022 3:06 PM Indication: G89.11: Acute pain due to trauma Status post surgical aspiration of the right proximal arm COMPARISON: None. FINDINGS/IMPRESSION: The osseous structures are intact without acute fracture. The glenohumeral and acromioclavicular joints are in anatomic alignment. Bone density and texture are normal. There is soft tissue edema and gas in the proximal arm, consistent with postsurgical status. Report dictated by Varun Sung MD (residential builder). > Dictated by Varun Sung MD ([employer]ate [employer]) 10/15/2022 3:14 PM I, Maritza Ling MD have personally reviewed and interpreted this examination/study. > Interpreting Provider: Maritza Ling MD on 10/15/2022 4:06 PM Procedure Note Mariah Ling MD - 10/15/2022 PROCEDURE: XR SHOULDER RIGHT 2VW OR MORE DATE/TIME OF EXAM: 10/15/2022 3:06 PM Indication: G89.11: Acute pain due to trauma Status post surgical aspiration of the right proximal arm COMPARISON: None. FINDINGS/IMPRESSION: The osseous structures are intact without acute fracture. Theglenohumeral and acromioclavicular joints are in anatomic alignment. Bone density and texture are normal. There is soft tissue edema and gas in the proximalarm, consistent with postsurgical status. Report dictated by Varun Sung MD (residential builder). > Dictated by Varun Sung MD ([employer]) 10/15/2022 3:14 PM IMaritza MD have personally reviewed and interpreted this examination/study. > Interpreting Provider: Maritza Ling MD on 10/15/2022 4:06 PM Lucy Vaughan DO DIAGNOSTIC IMAGING O RDERABLES * XR HUMERUS RIGHT 2VW OR MORE (10/15/2022 2:51 PM CDT) Anatomical Region Laterality Modality Upper Extremity Radiographic Samantha ging 10/15/2022 3:38 PM CDT Impressions 10/15/2022 5:27 PM CDT IMPRESSION: No acute fracture or dislocation identified. Report dictated by Ronni Esqueda MD (residential builder). IMaritza MD have personally reviewed and interpreted this examination/study. > Interpreting Provider: Maritza Ling MD on 10/15/2022 5:27 PM Narrative 10/15/2022 5:27 PM CDT PROCEDURE: XR HUMERUS RIGHT 2VW OR MORE, XR FOREARM RIGHT 2VW, XR WRIST RIGHT 2VW, XR ELBOW RIGHT 3VW OR MORE, DATE/TIME OF EXAM: 10/15/2022 3:05 PM, LOCATION [facility] INDICATION: G89.11: Acute pain due to trauma ADDITIONAL CLINICAL INFORMATION: Ordering Provider Reason For Exam: trauma (accession [id number]), pain (accession [id number]), pain (accession [id number]), biceps injury (accession [id number]) Technologist Note: Additional: COMPARISON: None. FINDINGS: Right humerus: The humerus is intact without acute fracture. A small soft tissue defect is noted medially in the upper arm. The joint spaces are preserved. Bone density and texture are normal. Right elbow: The osseous structures are intact and well aligned without acute fracture or dislocation. The joint spaces are preserved. No joint effusion is seen. Bone density and texture are normal. No soft tissue swelling is present. Right forearm: The radius and ulna are intact without evidence of acute fracture. Bone density and texture are normal. No soft tissue swelling is present. Right wrist: The osseous structures are intact and well aligned without acute fracture or dislocation. Sclerotic changes are noted in the distal scaphoid and trapezium, may represent degenerative changes. Mild deformity of the third metacarpal may represent an old healed fracture. The joint spaces are preserved. Bone density and texture are normal. No soft tissue swelling is present. Procedure Note Mariah Ling MD - 10/15/2022 PROCEDURE: XR HUMERUS RIGHT 2VW OR MORE, XR FOREARM RIGHT 2VW, XR WRIST RIGHT 2VW, XR ELBOW RIGHT 3VW OR MORE, DATE/TIME OF EXAM: 10/15/2022 3:05 PM, LOCATION [facility] INDICATION: G89.11: Acute pain due to trauma ADDITIONAL CLINICAL INFORMATION: Ordering Provider Reason For Exam: trauma (accession [id number]), pain (accession [id number]), pain (accession [id number]), biceps injury(accession [id number]) Technologist Note: Additional: COMPARISON: None. FINDINGS: Right humerus: The humerus is intact without acute fracture. A small soft tissue defectis noted medially in the upper arm. The joint spaces are preserved. Bone density and texture are normal. Right elbow: The osseous structures are intact and well aligned without acutefracture or dislocation. The joint spaces are preserved. No joint effusion isseen. Bone density and texture are normal. No soft tissue swelling is present. Right forearm: The radius and ulna are intact without evidence of acute fracture. Bone density and texture are normal. No soft tissue swelling is present. Right wrist: The osseous structures are intact and well aligned without acutefracture or dislocation. Sclerotic changes are noted in the distal scaphoid and trapezium, may represent degenerative changes. Mild deformity of thethird metacarpal may represent an old healed fracture. The joint spaces are preserved. Bone density and texture are normal. No soft tissue swellingis present. IMPRESSION: No acute fracture or dislocation identified. Report dictated by Ronni Esqueda MD (residential builder). IMaritza MD have personally reviewed and interpreted this examination/study. > Interpreting Provider: Maritza Ling MD on 10/15/2022 5:27 PM Lucy Vaughan DO DIAGNOSTIC IMAGING O RDERABLES * XR FOREARM RIGHT 2VW (10/15/2022 2:39 PM CDT) Anatomical Region Laterality Modality Upper Extremity Radiographic Samantha ging 10/15/2022 3:38 PM CDT Impressions 10/15/2022 5:27 PM CDT IMPRESSION: No acute fracture or dislocation identified. Report dictated by Ronni Esqueda MD (residential builder). Maritza Leija MD have personally reviewed and interpreted this examination/study. > Interpreting Provider: Maritza Ling MD on 10/15/2022 5:27 PM Narrative 10/15/2022 5:27 PM CDT PROCEDURE: XR HUMERUS RIGHT 2VW OR MORE, XR FOREARM RIGHT 2VW, XR WRIST RIGHT 2VW, XR ELBOW RIGHT 3VW OR MORE, DATE/TIME OF EXAM: 10/15/2022 3:05 PM, LOCATION [facility] INDICATION: G89.11: Acute pain due to trauma ADDITIONAL CLINICAL INFORMATION: Ordering Provider Reason For Exam: trauma (accession [id number]), pain (accession [id number]), pain (accession [id number]), biceps injury (accession [id number]) Technologist Note: Additional: COMPARISON: None. FINDINGS: Right humerus: The humerus is intact without acute fracture. A small soft tissue defect is noted medially in the upper arm. The joint spaces are preserved. Bone density and texture are normal. Right elbow: The osseous structures are intact and well aligned without acute fracture or dislocation. The joint spaces are preserved. No joint effusion is seen. Bone density and texture are normal. No soft tissue swelling is present. Right forearm: The radius and ulna are intact without evidence of acute fracture. Bone density and texture are normal. No soft tissue swelling is present. Right wrist: The osseous structures are intact and well aligned without acute fracture or dislocation. Sclerotic changes are noted in the distal scaphoid and trapezium, may represent degenerative changes. Mild deformity of the third metacarpal may represent an old healed fracture. The joint spaces are preserved. Bone density and texture are normal. No soft tissue swelling is present. Procedure Note Mariah Ling MD - 10/15/2022 PROCEDURE: XR HUMERUS RIGHT 2VW OR MORE, XR FOREARM RIGHT 2VW, XR WRIST RIGHT 2VW, XR ELBOW RIGHT 3VW OR MORE, DATE/TIME OF EXAM: 10/15/2022 3:05 PM, [facility] INDICATION: G89.11: Acute pain due to trauma ADDITIONAL CLINICAL INFORMATION: Ordering Provider Reason For Exam: trauma (accession [id number]), pain (accession [id number]), pain (accession [id number]), biceps injury(accession [id number]) Technologist Note: Additional: COMPARISON: None. FINDINGS: Right humerus: The humerus is intact without acute fracture. A small soft tissue defectis noted medially in the upper arm. The joint spaces are preserved. Bone density and texture are normal. Right elbow: The osseous structures are intact and well aligned without acutefracture or dislocation. The joint spaces are preserved. No joint effusion isseen. Bone density and texture are normal. No soft tissue swelling is present. Right forearm: The radius and ulna are intact without evidence of acute fracture. Bone density and texture are normal. No soft tissue swelling is present. Right wrist: The osseous structures are intact and well aligned without acutefracture or dislocation. Sclerotic changes are noted in the distal scaphoid and trapezium, may represent degenerative changes. Mild deformity of thethird metacarpal may represent an old healed fracture. The joint spaces are preserved. Bone density and texture are normal. No soft tissue swellingis present. IMPRESSION: No acute fracture or dislocation identified. Report dictated by Ronni Esqueda MD (residential builder). Maritza Leija MD have personally reviewed and interpreted this examination/study. > Interpreting Provider: Maritza Ling MD on 10/15/2022 5:27 PM Lucy Vaughan DO DIAGNOSTIC IMAGING O RDERABLES * XR WRIST RIGHT 2VW (10/15/2022 2:27 PM CDT) Anatomical Region Laterality Modality Wrist / Hand Radiographic Samantha ging 10/15/2022 3:38 PM CDT Impressions 10/15/2022 5:27 PM CDT IMPRESSION: No acute fracture or dislocation identified. Report dictated by Ronni Esqueda MD (residential builder). Maritza Leija MD have personally reviewed and interpreted this examination/study. > Interpreting Provider: Maritza Ling MD on 10/15/2022 5:27 PM Narrative 10/15/2022 5:27 PM CDT PROCEDURE: XR HUMERUS RIGHT 2VW OR MORE, XR FOREARM RIGHT 2VW, XR WRIST RIGHT 2VW, XR ELBOW RIGHT 3VW OR MORE, DATE/TIME OF EXAM: 10/15/2022 3:05 PM, LOCATION [facility] INDICATION: G89.11: Acute pain due to trauma ADDITIONAL CLINICAL INFORMATION: Ordering Provider Reason For Exam: trauma (accession [id number]), pain (accession [id number]), pain (accession [id number]), biceps injury (accession [id number]) Technologist Note: Additional: COMPARISON: None. FINDINGS: Right humerus: The humerus is intact without acute fracture. A small soft tissue defect is noted medially in the upper arm. The joint spaces are preserved. Bone density and texture are normal. Right elbow: The osseous structures are intact and well aligned without acute fracture or dislocation. The joint spaces are preserved. No joint effusion is seen. Bone density and texture are normal. No soft tissue swelling is present. Right forearm: The radius and ulna are intact without evidence of acute fracture. Bone density and texture are normal. No soft tissue swelling is present. Right wrist: The osseous structures are intact and well aligned without acute fracture or dislocation. Sclerotic changes are noted in the distal scaphoid and trapezium, may represent degenerative changes. Mild deformity of the third metacarpal may represent an old healed fracture. The joint spaces are preserved. Bone density and texture are normal. No soft tissue swelling is present. Procedure Note Mariah Ling MD - 10/15/2022 PROCEDURE: XR HUMERUS RIGHT 2VW OR MORE, XR FOREARM RIGHT 2VW, XR WRIST RIGHT 2VW, XR ELBOW RIGHT 3VW OR MORE, DATE/TIME OF EXAM: 10/15/2022 3:05 PM, LOCATION [facility] INDICATION: G89.11: Acute pain due to trauma ADDITIONAL CLINICAL INFORMATION: Ordering Provider Reason For Exam: trauma (accession [id number]), pain (accession [id number]), pain (accession [id number]), biceps injury(accession [id number]) Technologist Note: Additional: COMPARISON: None. FINDINGS: Right humerus: The humerus is intact without acute fracture. A small soft tissue defectis noted medially in the upper arm. The joint spaces are preserved. Bone density and texture are normal. Right elbow: The osseous structures are intact and well aligned without acutefracture or dislocation. The joint spaces are preserved. No joint effusion isseen. Bone density and texture are normal. No soft tissue swelling is present. Right forearm: The radius and ulna are intact without evidence of acute fracture. Bone density and texture are normal. No soft tissue swelling is present. Right wrist: The osseous structures are intact and well aligned without acutefracture or dislocation. Sclerotic changes are noted in the distal scaphoid and trapezium, may represent degenerative changes. Mild deformity of thethird metacarpal may represent an old healed fracture. The joint spaces are preserved. Bone density and texture are normal. No soft tissue swellingis present. IMPRESSION: No acute fracture or dislocation identified. Report dictated by Ronni Esqueda MD (residential builder). IMaritza MD have personally reviewed and interpreted this examination/study. > Interpreting Provider: Maritza Ling MD on 10/15/2022 5:27 PM Lucy Vaughan DO DIAGNOSTIC IMAGING O RDERABLES * (ABNORMAL) C-REACTIVE PROTEIN (10/15/2022 1:30 PM CDT) C-Reactive Protein 6.5(H) <=0.5 mg/dL 10/15/2022 2:19 PM CDT [facility] Blood BLOOD SPECIMEN / Unknown Lab Venipuncture / Unknown 10/15/2022 1:30 PM CDT 10/15/2022 1:54 PM CDT Lucy Vaughan DO LAB - CHEMISTRY JUAN JOSEE ANAIS Performing Organization Address [facility] Co de Phone Number [facility] [address] [place] [phone], [facility] [phone] * (ABNORMAL) ERYTHROCYTE SEDIMENTATION RATE (10/15/2022 1:30 PM CDT) Erythrocyte Sedimentation Rate Westergren 37(H) 0 - 20 MM/HR 10/15/2022 2:15 PM CDT [facility] Blood BLOOD SPECIMEN / Unknown Lab Venipuncture / Unknown 10/15/2022 1:30 PM CDT 10/15/2022 1:55 PM CDT Lcuy Vaughan DO LAB - HEMATOLOGY ORD ERABLES [facility] [address] [place] [address], [facility] [phone] * XR ELBOW RIGHT 3VW OR MORE (10/15/2022 1:04 PM CDT) Anatomical Region Laterality Modality Upper Extremity Radiographic Samantha ging 10/15/2022 3:38 PM CDT Impressions 10/15/2022 5:27 PM CDT IMPRESSION: No acute fracture or dislocation identified. Report dictated by Ronni Esqueda MD (residential builder). Maritza Leija MD have personally reviewed and interpreted this examination/study. > Interpreting Provider: Maritza Ling MD on 10/15/2022 5:27 PM Narrative 10/15/2022 5:27 PM CDT PROCEDURE: XR HUMERUS RIGHT 2VW OR MORE, XR FOREARM RIGHT 2VW, XR WRIST RIGHT 2VW, XR ELBOW RIGHT 3VW OR MORE, DATE/TIME OF EXAM: 10/15/2022 3:05 PM, LOCATION [facility] INDICATION: G89.11: Acute pain due to trauma ADDITIONAL CLINICAL INFORMATION: Ordering Provider Reason For Exam: trauma (accession [id number]), pain (accession [id number]), pain (accession [id number]), biceps injury (accession [id number]) Technologist Note: Additional: COMPARISON: None. FINDINGS: Right humerus: The humerus is intact without acute fracture. A small soft tissue defect is noted medially in the upper arm. The joint spaces are preserved. Bone density and texture are normal. Right elbow: The osseous structures are intact and well aligned without acute fracture or dislocation. The joint spaces are preserved. No joint effusion is seen. Bone density and texture are normal. No soft tissue swelling is present. Right forearm: The radius and ulna are intact without evidence of acute fracture. Bone density and texture are normal. No soft tissue swelling is present. Right wrist: The osseous structures are intact and well aligned without acute fracture or dislocation. Sclerotic changes are noted in the distal scaphoid and trapezium, may represent degenerative changes. Mild deformity of the third metacarpal may represent an old healed fracture. The joint spaces are preserved. Bone density and texture are normal. No soft tissue swelling is present. Procedure Note Mariah Ling MD - 10/15/2022 PROCEDURE: XR HUMERUS RIGHT 2VW OR MORE, XR FOREARM RIGHT 2VW, XR WRIST RIGHT 2VW, XR ELBOW RIGHT 3VW OR MORE, DATE/TIME OF EXAM: 10/15/2022 3:05 PM, LOCATION [facility] INDICATION: G89.11: Acute pain due to trauma ADDITIONAL CLINICAL INFORMATION: Ordering Provider Reason For Exam: trauma (accession [id number]), pain (accession [id number]), pain (accession [id number]), biceps injury(accession [id number]) Technologist Note: Additional: COMPARISON: None. FINDINGS: Right humerus: The humerus is intact without acute fracture. A small soft tissue defectis noted medially in the upper arm. The joint spaces are preserved. Bone density and texture are normal. Right elbow: The osseous structures are intact and well aligned without acutefracture or dislocation. The joint spaces are preserved. No joint effusion isseen. Bone density and texture are normal. No soft tissue swelling is present. Right forearm: The radius and ulna are intact without evidence of acute fracture. Bone density and texture are normal. No soft tissue swelling is present. Right wrist: The osseous structures are intact and well aligned without acutefracture or dislocation. Sclerotic changes are noted in the distal scaphoid and trapezium, may represent degenerative changes. Mild deformity of thethird metacarpal may represent an old healed fracture. The joint spaces are preserved. Bone density and texture are normal. No soft tissue swellingis present. IMPRESSION: No acute fracture or dislocation identified. Report dictated by Ronni Esqueda MD (residential builder). IMaritza MD have personally reviewed and interpreted this examination/study. > Interpreting Provider: Maritza Ling MD on 10/15/2022 5:27 PM Lucy Vaughan DO DIAGNOSTIC IMAGING O RDERABLES * (ABNORMAL) LIPID PROFILE (10/15/2022 8:26 AM CDT) [facility] Cholesterol Total 140 <200 mg/dL 10/15/2022 9:02 AM CDT [facility] HDL 35(L) >40 mg/dL 10/15/2022 9:02 AM CDT [facility] Comment: ATP III Classification of HDL Cholesterol: <40 mg/dL: Considered a major risk factor. >60 mg/dL: Considered a negative risk factor. LDL Calculated 94 <100 mg/dL 10/15/2022 9:02 AM T [facility] Comment: ATP III Classification of LDL Cholesterol: <100 mg/dL: Optimal 100 - 129 mg/dL: Near Optimal/Above Optimal 130 - 159 mg/dL: Borderline High 160 - 189 mg/dL: High >190 mg/dL: Very High Triglycerides 53 <150 mg/dL 10/15/2022 9:02 AM T [facility] Comment: ATP III Classification of Triglycerides: <150 mg/dL: Normal 150 - 199 mg/dL: Borderline High 200 - 400 mg/dL: High >500 mg/dL: Very High Blood BLOOD SPECIMEN / Unknown Lab Venipuncture / Unknown 10/15/2022 8:26 AM CDT 10/15/2022 8:31 AM CDT Gee Real MD LAB - CHEMISTRY VITO MANZO [facility] [address] [place] [address], [facility] [phone] * CULTURE WOUND+GRAM STAIN (10/15/2022 2:03 AM CDT) Culture No growth SHRUTHI 10/17/2022 6:16 AM CDT [facility] MICROBIOLOG[facility] Gram Stain Heavy Red blood cells 10/17/2022 6:16 AM CDT [facility] Gram Stain Light Polymorphonuclear cells 10/17/2022 6:16 AM CDT [facility]CRO[facility] Gram Stain No organisms seen 023 6:16 AM CDT [facility] MICRO[facility]OLOGY Microbiology ENTIRE UPPER LIMB / Unknown Collection / Unknown 10/15/2022 2:03 AM CDT 10/15/2022 2:18 AM CDT Deshawn Barnett MD LAB - MICROBIOLOGY ORDERABLES [facility] MICROBIOLOGY [address] [place] [address], [facility] [phone] * CULTURE ANAEROBE (10/15/2022 2:02 AM CDT) Culture No anaerobic organisms isolated SHRUTHI 10/20/2022 3:02 PM CDT [facility] MICROBIOLOGY Microbiology ENTIRE UPPER LIMB / Unknown Collection / Unknown 10/15/2022 2:02 AM CDT 10/15/2022 2:18 AM CDT Deshawn Barnett MD LAB - MICROBIOLOGY ORDERABLES [facility] MICROBIOLOGY [address] [place] [address], [facility] [phone] * ETT LINE PERFORMABLE (10/15/2022 1:46 AM CDT) Narrative Olamide Rankin DO - 10/15/2022 1:46 AM CDT Olamide Rankin DO 10/15/2022 1:47 AM Endotracheal Tube Placement: Patient Location: OR. Intubation Event Date/Time: 10/15/2022 1:42 AM Procedure: intubation ([id number]). Procedure Section: Sedation: IV sedation. Indications for Airway Management: airway protection Procedure pretreatments used? No Induction: rapid sequence Patient Position: sniffing and supine Mask Ventilation: not attempted. Blade Type: Don Blade Size: 4 Laryngoscopy View: grade 1 (full cords) Intubation Adjuncts: cricoid pressure and stylet Placement: oral Tube type: cuff - inflated Tube Size (MM): 8 Depth of Insertion (CM): 25 Measured From: lips Cuff volume (mL): 10 Cuff Inflated With: air Number of Attempts: 1. Placement Verified By: direct visualization, bilateral breath sounds, chest auscultation and CO2 monitor Tube secured with: adhesive tape. Dentition unchanged? Yes Difficult Airway? No. Procedure Start Time: 10/15/2022 1:42 AM. Staff Section Anesthesia Provider: Olamide Rankin DO, Performed the procedure Provider #1: Niraj Lu MD, Performed the procedure. Niraj Lu MD GENERAL ANESTHESIA O RDERABLES * CULTURE BLOOD (10/14/2022 11:41 PM CDT) Only the most recent of2 resultswithin the time period is included. Pathologist [facility] Culture No growth day 5 SHRUTHI 10/20/2022 1:30 AM CDT [facility] MICROBIOLOGY Blood PERIPHERAL BLOOD / Unknown Venipuncture / Unknown 10/14/2022 11:41 PM CDT 10/14/2022 11:49 PM CDT Luis A Marie MD LAB - MICROBIOL OGY ORDERABLES Performing Organization Address City/[facility]/ZIP Co de Phone Number [facility] MICROBIOLOGY [address] [place] [address], [facility] [phone] * TYPE + SCREEN PANEL (10/14/2022 11:25 PM CDT) Only the most recent of2 resultswithin the time period is included. Pathologist [facility] Antibody Screen NEG 12:43 AM CDT [facility] ABO Rh A POS 10/15/2022 12:43 AM CDT [facility] Blood Bank BLOOD SPECIMEN / Unknown Venipuncture / Unknown 10/14/2022 11:25 PM CDT 10/14/2022 11:50 PM CDT Luis A Marie MD LAB - BLOOD BAN K ORDERABLES Performing Organization Address City/[facility]/ZIP Co de Phone Number [facility] [address] [place] [address], [facility] [phone] * (ABNORMAL) CBC W AUTO DIFFERENTIAL (10/14/2022 10:44 PM CDT) Only the most recent of2 resultswithin the time period is included. WBC 14.8(H) 3.5 - 10.5 10 3/uL 10/14/2022 11:52 PM CDT [facility] RBC 3.82(L) 4.30 - 5.70 10 6/uL 10/14/2022 11:52 PM CDT [facility] Hemoglobin 11.2(L) 12.0 - 17.6 g/dL 10/14/2022 11:52 PM CDT [facility] Hematocrit 34.6(L) 35.2 - 51.7 % 10/14/2022 11:52 PM [facility] MCV 90.6 80.7 - 98.3 fL 10/14/2022 11:52 PM [facility] MCH 29.3 26.7 - 34.0 pg 10/14/2022 11:52 PM [facility] MCHC 32.4 30.8 - 35.9 g/dL 10/14/2022 11:52 PM [facility] RDW-SD 44.4 36.0 - 50.0 fL 10/14/2022 11:52 PM [facility] RDW-CV 13.4 11.2 - 14.8 % 10/14/2022 11:52 PM [facility] Platelet Count 265 150 - 400 10 3/uL 10/14/2022 11:52 PM [facility] Comment: Platelet count verified by slide scan. This is an appended report. These results have been appended to a previously preliminary verified report. MPV 10/14/2022 11:52 PM [facility] Comment:Unable to Report Immature Platelet Fraction 10/14/2022 11:52 PM [facility] Comment:Unable to Report nRBC Absolute 0.00 0 10 3/uL 10/14/2022 11:52 PM [facility] nRBC Auto 0.0 0 /100 WBC 10/14/2022 11:52 PM [facility] Neutrophils % 62.4 35.0 - 70.0 % 10/14/2022 11:52 PM [facility] Lymphocytes % 21.9 20.0 - 43.0 % 10/14/2022 11:52 PM [facility] Monocytes % 13.4(H) 5.0 - 13.0 % 10/14/2022 11:52 PM [facility] Eosinophils % 1.1 0.0 - 6.0 % 10/14/2022 11:52 PM [facility] Basophil % 0.7 0.0 - 2.0 % 10/14/2022 11:52 PM [facility] Neutrophils Absolute 9.25(H) 1.60 - 7.00 10 3/uL 10/14/2022 11:52 PM T [facility] Lymphocyte Absolute 3.24 1.10 - 3.90 10 3/uL 10/14/2022 11:52 PM T [facility] Monocytes Absolute 1.98(H) 0.26 - 1.07 10 3/uL 10/14/2022 11:52 PM T [facility] Eosinophils Absolute 0.16 0.00 - 0.47 10 3/uL 10/14/2022 11:52 PM T [facility] Basophils Absolute 0.10(H) 0.00 - 0.08 10 3/uL 10/14/2022 11:52 PM [facility] Immature Granulocytes % 0.5 0.0 - 1.0 % 10/14/2022 11:52 PM [facility] Immature Granulocytes Absolute 0.07 10/14/2022 11:52 PM [facility] Blood BLOOD SPECIMEN / Unknown Venipuncture / Unknown 10/14/2022 10:44 PM CDT 10/14/2022 10:55 PM CDT Luis A Marie MD LAB - HEMATOLOG Y ORDERABLES Performing Organization Address City/State/[facility] Co de Phone Number [facility] [address] [place] [address], [facility] [phone] * (ABNORMAL) COMPREHENSIVE METABOLIC PANEL (10/14/2022 10:44 PM CDT) BUN 15 7 - 26 mg/dL 10/14/2022 11:20 PM [facility] Creatinine 1.05 0.71 - 1.16 mg/dL 10/14/2022 11:20 PM [facility] Sodium 134(L) 136 - 145 mmol/L 10/14/2022 11:20 PM [facility] Potassium 3.7 3.5 - 4.5 mmol/L 10/14/2022 11:20 PM [facility] Chloride 108(H) 98 - 107 mmol/L 10/14/2022 11:20 PM [facility] CO2 23 22 - 29 mmol/L 10/14/2022 11:20 PM [facility] Glucose 97 70 - 115 mg/dL 10/14/2022 11:20 PM [facility] Calcium 8.3(L) 8.4 - 10.2 mg/dL 10/14/2022 11:20 PM [facility] Protein Total 6.2 6.0 - 8.3 g/dL 10/14/2022 11:20 PM [facility] Albumin 2.7(L) 3.4 - 5.0 g/dL 10/14/2022 11:20 PM [facility] Bilirubin Total 0.5 0.2 - 1.2 mg/dL 10/14/2022 11:20 PM [facility] Alkaline Phosphatase 74 40 - 150 U/L 10/14/2022 11:20 PM [facility] ALT 22 5 - 55 U/L 10/14/2022 11:20 PM [facility] AST 20 5 - 34 U/L 10/14/2022 11:20 PM [facility] Anion Gap 7(L) 8 - 18 10/14/2022 11:20 PM [facility] BUN/Creatinine Ratio 14 7 - 23 10/14/2022 11:20 PM [facility] Osmolality Calculated 279 270 - 300 mOsm/kg 10/14/2022 11:20 PM [facility] Albumin/Globulin Ratio 0.8(L) 1.1 - 2.3 10/14/2022 11:20 PM [facility] eGFR by CKD-EPI 82(L) >=90 mL/min/1.7 3 m2 10/14/2022 11:20 PM [facility] Blood BLOOD SPECIMEN / Unknown Venipuncture / Unknown 10/14/2022 10:44 PM CDT 10/14/2022 10:55 PM CDT Luis A Marie MD LAB - CHEMISTRY ORDERABLES [facility] [address] [place] [address], [facility] [phone] * LACTIC ACID BLOOD (10/14/2022 10:44 PM CDT) Lactic Acid-Stat 1.4 <=2.0 mmol/L 10/14/2022 11:15 PM CDT [facility] Blood BLOOD SPECIMEN / Unknown Venipuncture / Unknown 10/14/2022 10:44 PM CDT 10/14/2022 10:55 PM CDT Luis A Marie MD LAB - CHEMISTRY ORDERABLES [facility] [address] [place] [address], [facility] [phone] * XR LUMBAR SPINE 2 OR 3VW (07/03/2021 9:10 AM CDT) Only the most recent of2 resultswithin the time period is included. Anatomical Region Laterality Modality Spine Radiographic Samantha ging 07/03/2021 10:4 6 AM CDT Impressions 07/03/2021 11:02 AM CDT IMPRESSION: Lumbar fractures, better detailed on the prior CT. Report drafted by Naldo Bowen M.D. (resident) IDr. UDAY DENNIS MD, FRCR have personally reviewed and interpreted this examination/study. This report was electronically signed by UDAY DENNIS MD, FRCR on 07/03/2021 11:02 AM . Narrative 07/03/2021 11:02 AM CDT EXAM: Lumbar Spine Radiographs, 2 views HISTORY: Z47.89: Orthopedic aftercare COMPARISON: Lumbar spine XR 06/11/2021 FINDINGS: There are redemonstrated fractures of the L1, L4 left transverse processes and L1 left inferior endplate better seen on the CT lumbar spine 06/11/2021. Levoscoliosis and mild retrolisthesis of L1-L2 and L2-L3 are unchanged. Multilevel degenerative disc and joint disease is also unchanged. Vascular calcification seen. Procedure Note Uday Dennis MD - 07/03/2021 EXAM: Lumbar Spine Radiographs, 2 views HISTORY: Z47.89: Orthopedic aftercare COMPARISON: Lumbar spine XR 06/11/2021 FINDINGS: There are redemonstrated fractures of the L1, L4 left transverseprocesses and L1 left inferior endplate better seen on the CT lumbar spine 06/11/2021. Levoscoliosis and mild retrolisthesis of L1-L2 and L2-L3 are unchanged. Multilevel degenerative disc and joint disease is also unchanged. Vascular calcification seen. IMPRESSION: Lumbar fractures, better detailed on the prior CT. Report drafted by Naldo Bowen M.D. (resident) Dr. UDAY Leija MD, FRTRUDI have personally reviewedand interpreted this examination/study. This report was electronically signed by UDAY DENNIS MD, FRCR on 07/03/2021 11:02 AM . Ned Leroy MD DIAGNOSTIC IMAGING O RDERABLES * CARDIAC EKG ORDER (06/13/2021 9:12 AM CDT) Narrative 06/13/2021 9:12 AM CDT Ordered by an unspecified provider. Scanned Document CARDIAC SERVICES ORD ERABLES * XR CHEST 1VW PORTABLE (06/12/2021 5:19 AM CDT) Only the most recent of2 resultswithin the time period is included. Anatomical Region Laterality Modality Chest Radiographic Samantha ging 06/12/2021 1:30 PM CDT Impressions 06/12/2021 3:18 PM CDT FINDINGS/IMPRESSION: Lines and tubes: Mild bibasilar opacities likely represent atelectasis but may also represent airspace disease such as pneumonia. There is no pleural effusion or pneumothorax. The cardiomediastinal silhouette is normal. The patient's known nondisplaced left posterior 10th, 11th, and 12th rib fractures are not well demonstrated on the current exam and better seen on prior chest CT. Report dictated by Franklyn Blakely MD (residential builder). Dr. UDAY Leija MD, FRTRUDI have personally reviewed and interpreted this examination/study. This report was electronically signed by UDAY DENNIS MD, FRCR on 06/12/2021 3:18 PM . Narrative 06/12/2021 3:18 PM CDT EXAMINATION: XR CHEST 1VW PORTABLE, 06/12/2021 5:19 AM HISTORY: S22.42XA: Closed fracture of multiple ribs of left side, initial encounter COMPARISON: Portable AP chest 06/11/2021, CT chest 06/11/2021 Procedure Note Uday Dennis MD - 06/12/2021 EXAMINATION: XR CHEST 1VW PORTABLE, 06/12/2021 5:19 AM HISTORY: S22.42XA: Closed fracture of multiple ribs of left side,initial encounter COMPARISON: Portable AP chest 06/11/2021, CT chest 06/11/2021 FINDINGS/IMPRESSION: Lines and tubes: Mild bibasilar opacities likely represent atelectasis but may also represent airspace disease such as pneumonia. There is no pleuraleffusion or pneumothorax. The cardiomediastinal silhouette is normal. Thepatient's known nondisplaced left posterior 10th, 11th, and 12th rib fractures are not well demonstrated on the current exam and better seen on prior chest CT. Report dictated by Franklyn Blakely MD (residential builder). I, Dr. UDAY DENNIS MD, FRCR have personally reviewedand interpreted this examination/study. This report was electronically signed by UDAY DENNIS MD, FRCR on 06/12/2021 3:18 PM . Yun Avalos CLEAN UP HELPER [employer] TUTOR DIAGNOSTIC IMAGIN G ORDERABLES * (ABNORMAL) URINE DRUG SCREEN IMMUNOASSAY (06/12/2021 12:21 AM CDT) [facility] Amphetamines Screen Urine Positive(A) Negative : < 1000 ng/mL 06/12/2021 12:45 AM CDT [facility] Comment: Positive urine amphetamine screening results should be confirmed by another generally accepted non-immunological method such as gas chromatography or mass spectrometry. Barbiturates Screen Urine Negative Negative : < 200 ng/mL 06/12/2021 12:45 AM [facility] Benzodiazepine Screen Urine Negative Negative : < 200 ng/mL 06/12/2021 12:45 AM [facility] Opiates Urine Positive(A) Negative : < 300 ng/mL 06/12/2021 12:45 AM [facility] Comment:Positive urine opiat e screening results should be confirmed by another generally accepted non-immunological method such as gas chromatography or mass spectrometry. Cocaine Metabolites Urine Negative Negative : < 300 ng/mL 06/12/2021 12:45 AM [facility] Phencyclidine Screen Urine Negative Negative : < 25 ng/ml 06/12/2021 12:45 AM [facility] Cannabinoids Screen Urine Positive(A) Negative : <50 ng/mL 06/12/2021 12:45 AM [facility] Comment:Positive urine canna binoids (THC) screening results should be confirmed by another generally accepted non-immunological method such as gas chromatography or mass spectrometry. Methadone Screen Urine Negative Negative : < 300 ng/mL 06/12/2021 12:45 AM [facility] Fentanyl Screen Urine Positive(A) Negative : <1.0 ng/mL 06/12/2021 12:45 AM [facility] Comment:Positive urine fenta nyl screening results should be confirmed by another generally accepted non-immunological method such as gas chromatography or mass spectrometry. Urine URINE / Unknown Collection / Unknown 06/12/2021 12:21 AM CDT 06/12/2021 12:25 AM [facility] - 06/12/2021 12:45 AM [facility] The Urine Toxicology Screening Panel does not screen for Propoxyphene, Meprobamate, Carisoprodol, Trazodone, fyad-btk-upqednf medications and/or volatiles (Acetone, Isopropanol, Methanol or Ethylene Glycol). Ethanol, Salicylate, Acetaminophen, Tricyclic Antidepressants and several therapeutic drugs may be individually assayed in serum or plasma specimen. Toxicology testing by the [facility] is an aid to medical diagnosis and treatment of patients. No documented chain of custody was maintained. Results are intended to be used for clinical purposes only. Da Mariee MD LAB - URINE CHEMIS TRY ORDERABLES Performing Organization Address City/State/[facility] Co de Phone Number [facility] [address] [place] [address], [facility] [phone] * BLOOD TYPE VERIFICATION (06/11/2021 8:42 AM CDT) ABO Rh A POS 06/11/2021 9:2 0 AM CDT [facility] Blood Bank BLOOD SPECIMEN / Unknown Lab Venipuncture / Unknown 06/11/2021 8:42 AM CDT 06/11/2021 8:49 AM CDT Da Mariee MD LAB - BLOOD BANK O RDERABLES Performing Organization Address [facility] de Phone Number [facility] [address] [place] [address], [facility] [phone] * EKG 12-LEAD (06/11/2021 8:38 AM CDT) Ventricular Rate 82 BPM H MUSE Atrial Rate 82 BPM [facility] MUSE P-R Interval 158 ms [facility] MUSE QRS Duration ms 96 ms [facility] MUSE Q-T Interval ms 402 ms [facility] MUSE QTC Calculation (Bezet) 469 ms [facility] MUSE Calculated P [place] 70 degrees SL MUSE Calculated R [place] 58 degrees [facility] MUSE Calculated T [place] 58 degrees [facility] MUSE Interpretation EKG NORMAL SINUS RHYTHM NORMAL ECG NO PREVIOUS ECGS AVAILABLE Confirmed by Darrion De Leon ([id number]) on 06/13/2021 6:37:50 AM [facility] 06/11/2021 8:38 AM CDT 06/13/2021 6:37 AM CDT Da Mariee MD ECG ORDERABLES Performing Organization Address [facility] Co de Phone Number [facility] * XR PELVIS 1 OR 2VW (06/11/2021 8:35 AM CDT) Anatomical Region Laterality Modality Pelvis Radiographic Samantha ging 06/11/2021 8:45 AM CDT Impressions 06/11/2021 11:48 AM CDT IMPRESSION: No acute fracture identified. Dictated by Franklyn Blakely MD (residential builder). This report was approved by Franklyn Blakely on 06/11/2021 11:[address] LADAN Leija MD have personally reviewed and interpreted this examination/study. This report was electronically signed by Dr. LADAN SMITH MD on 06/11/2021 11:48 AM . Narrative 06/11/2021 11:48 AM CDT EXAMINATION: XR PELVIS 1 OR 2VW HISTORY: Trauma Fracture suspected COMPARISON: None. FINDINGS: No acute fracture is identified. The femoral heads appear well-seated within their respective acetabula. The pubic symphysis is intact. Bone density and texture are normal. The sacroiliac joints are normal. Procedure Note Ladan Smith MD - 06/11/2021 EXAMINATION: XR PELVIS 1 OR 2VW HISTORY: Trauma Fracture suspected COMPARISON: None. FINDINGS: No acute fracture is identified. The femoral heads appear well-seated within their respective acetabula. The pubic symphysis is intact. Bone density and texture are normal. The sacroiliac joints are normal. IMPRESSION: No acute fracture identified. Dictated by Franklyn Blakely MD (residential builder). This report was approved by Franklyn Blakely on 06/11/2021 11:[address] LADAN Leija MD have personally reviewed and interpretedthis examination/study. This report was electronically signed by Dr. LADAN SMITH MD on 06/11/2021 11:48 AM . Da Mariee MD DIAGNOSTIC IMAGING ORDERABLES * CT CHEST ABDOMEN PELVIS WO CONT (06/11/2021 8:34 AM CDT) Anatomical Region Laterality Modality Chest, Abdomen, Pelvis Computed Tomography 06/11/2021 8:48 AM CDT Impressions 06/11/2021 11:14 AM CDT Impression: Evaluation of visceral and vascular structures is degraded due to lack of intravenous contrast administration. Within this limitation: 1.Acute mildly displaced left posterior ninth rib fracture, acute nondisplaced left posterior 10th and 11th and 12th rib fractures and acute displaced left transverse process fractures of the L1 through L4. Superior endplate compression deformity which may represent a Schmorl's node. Please refer to concurrent spine CT for further details of spine findings. 2.Trace left apical pneumothorax. 3.No other evidence of acute visceral or vascular injury in the chest abdomen or pelvis. Report drafted by Gabriel Byrd (resident) Dr. Maritza Leija M.D. have personally reviewed and interpreted this examination/study. This report was electronically signed by Maritza LING M.D. on 06/11/2021 11:14 AM . Narrative 06/11/2021 11:14 AM CDT Procedure Information DATE: 06/11/2021 8:35 AM EXAMINATION: Computed tomography (CT) of the chest, abdomen, and pelvis without contrast TECHNIQUE: CT of the chest, abdomen, and pelvis was performed without contrast according to standard protocol. Clinical Information HISTORY: T14.90XA: Trauma COMPARISON: None. Findings Evaluation of visceral and vascular structures is degraded due to lack of intravenous contrast administration. Chest: Lines/Tubes: None. Lower neck and axillae: Normal. Mediastinum and Rachael: No enlarged lymph nodes are present. Heart and Pericardium: The cardiac chambers are normal in size. No pericardial fluid or thickening is present. Scattered atherosclerotic changes in the aorta and extensive atherosclerotic changes in the coronary arteries. Lung Parenchyma, Airways, and Pleural Spaces: There is mild paraseptal and centrilobular emphysema with multiple right apical blebs. Dependent atelectatic changes are seen in the lower lobes. There is no pleural effusion. There is trace left apical pneumothorax. Abdomen/pelvis: Within the limitations of a noncontrast exam: Hepatobiliary: The liver and gallbladder appear normal. Pancreas: Normal. Spleen: Normal. Kidneys: Normal. Adrenals: Normal. Retroperitoneum/peritoneum: There is no evidence of mesenteric or retroperitoneal hemorrhage. No free air or free fluid is present. Gastrointestinal: The stomach and visualized loops of bowel are unremarkable. Diverticulosis of the colon without evidence of acute diverticulitis. Small fecalith is seen in the appendix. The appendix is air-filled and normal in size. Pelvic Structures: The bladder is normal. There is no free pelvic fluid. Vasculature: Scattered atherosclerotic vasculature changes. Bones: There is an acute mildly displaced left posterior ninth rib fracture. There are acute nondisplaced left posterior 10th and 11th and 12th rib fractures. There are acute displaced left transverse process fractures of the L1-L4. There is mild compression deformity of superior endplate of the T7 vertebral body, which may represent a Schmorl's node. There is a chronic appearing fracture in the left lateral clavicle. Degenerative changes of the spine. Soft tissues: Normal. Procedure Note Mariah Ling MD - 06/11/2021 Procedure Information DATE: 06/11/2021 8:35 AM EXAMINATION: Computed tomography (CT) of the chest, abdomen, and pelvis without contrast TECHNIQUE: CT of the chest, abdomen, and pelvis was performed without contrast according to standard protocol. Clinical Information HISTORY: T14.90XA: Trauma COMPARISON: None. Findings Evaluation of visceral and vascular structures is degraded due to lackof intravenous contrast administration. Chest: Lines/Tubes: None. Lower neck and axillae: Normal. Mediastinum and Rachael: No enlarged lymph nodes are present. Heart and Pericardium: The cardiac chambers are normal in size. No pericardial fluid or thickening is present. Scattered atherosclerotic changes in the aortaand extensive atherosclerotic changes in the coronary arteries. Lung Parenchyma, Airways, and Pleural Spaces: There is mild paraseptal and centrilobular emphysema with multiple right apical blebs. Dependent atelectatic changes are seen in the lower lobes. There is no pleural effusion. There is trace left apical pneumothorax. Abdomen/pelvis: Within the limitations of a noncontrast exam: Hepatobiliary: The liver and gallbladder appear normal. Pancreas: Normal. Spleen: Normal. Kidneys: Normal. Adrenals: Normal. Retroperitoneum/peritoneum: There is no evidence of mesenteric or retroperitoneal hemorrhage. Nofree air or free fluid is present. Gastrointestinal: The stomach and visualized loops of bowel are unremarkable.Diverticulosis of the colon without evidence of acute diverticulitis. Small fecalith is seen in the appendix. The appendix is air-filled and normal in size. Pelvic Structures: The bladder is normal. There is no free pelvic fluid. Vasculature: Scattered atherosclerotic vasculature changes. Bones: There is an acute mildly displaced left posterior ninth rib fracture. There are acute nondisplaced left posterior 10th and 11th and 12th rib fractures. There are acute displaced left transverse process fractures of theL1-L4. There is mild compression deformity of superior endplate of the T7 vertebral body, which may represent a Schmorl's node. There is a chronic appearing fracture in the left lateral clavicle. Degenerative changes of the spine. Soft tissues: Normal. Impression: Evaluation of visceral and vascular structures is degraded due to lackof intravenous contrast administration. Within this limitation: 1.Acute mildly displaced left posterior ninth rib fracture, acute nondisplaced left posterior 10th and 11th and 12th rib fractures andacute displaced left transverse process fractures of the L1 through L4.Superior endplate compression deformity which may represent a Schmorl's node. Please refer to concurrent spine CT for further details of spinefindings. 2.Trace left apical pneumothorax. 3.No other evidence of acute visceral or vascular injury in the chest abdomen or pelvis. Report drafted by Gabriel Byrd (resident) Dr. Maritza Leija M.D. have personally reviewed and interpretedthis examination/study. This report was electronically signed by Maritza LING M.D. on 06/11/2021 11:14 AM . Da Mariee MD CT ORDERABLES * CT LUMBAR SPINE WO CONTRAST - T/L-spine trauma, Spine fracture (06/11/2021 8:34 AM CDT) Anatomical Region Laterality Modality Spine Computed Tomogra phy 06/11/2021 8:58 AM CDT Impressions 06/11/2021 3:19 PM CDT is seen. IMPRESSION: 1.No acute intracranial hemorrhage. 2.Acute nondisplaced fracture of the L1 left inferior endplate. 3.Acute displaced fractures of the L1-L4 left transverse processes. 4.Acute minimally displaced fracture of the posterior-lateral left 9th, 11th, and 12th rib. Report drafted by Ronni Esqueda MD ([facility] [employer]). Dr. IRMA Leija have personally reviewed and interpreted this examination/study. This report was electronically signed by IRMA CARLSON on 06/11/2021 3:19 PM . Narrative 06/11/2021 3:[address] HEAD WO CONTRAST, CT LUMBAR SPINE WO CONTRAST, CT THORACIC SPINE WO CONTRAST, CT CERVICAL SPINE WO CONTRAST DATE: 06/11/2021 8:35 AM EXAMINATION: 1.Computed tomography (CT) of the head without contrast 2.CT of the cervical spine without contrast 3.CT of the thoracic spine without contrast 4.CT of the lumbar spine without contrast HISTORY: Trauma TECHNIQUE: CT of the head and cervical spine was performed without contrast according to standard protocol. Reformatted axial, sagittal, and coronal images of the thoracic and lumbar spine were obtained by the technologist from a concurrently performed body CT and sent to the workstation for review. COMPARISON: No prior study is available for comparison at the time of this dictation. FINDINGS: Head: Mild intracranial volume loss. No acute intra- or extra-axial fluid collections are identified. The ventricles are of normal size, shape, and morphology. The basilar cisterns are patent. No mass effect or midline shift is seen. The lua-white matter differentiation is grossly preserved. No acute calvarial fracture is identified.. Bilateral lens replacements. Cervical spine: No abnormal thickening of the prevertebral soft tissues. 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 There is mild anterolisthesis at C3-C4 secondary to severe right-sided facet arthropathy. There is mild retrolisthesis at C4-C5, C5-C6, and C6-C7. There is subtotal intervertebral disc space height loss, endplate remodeling, marginal osteophyte formation, and vacuum disc formation at C5-C6, C6-C7, and C7-T1. There is mild degenerative anterolisthesis at C7-T1 secondary to bilateral severe facet arthropathy asymmetric on the left. Kyphosis. No acute fracture or traumatic subluxation of the cervical spine. The level central canal stenosis. Multilevel neural foraminal stenosis. Thoracic spine: There are 12 rib-bearing vertebral bodies. There is a chronic appearing superior compression fracture of the T7 vertebral body associated with Schmorl's node formation. There is approximately 40% height loss without significant retropulsion. There is diffuse osteopenia. Endplate remodeling is seen at other levels. There is dextrocurvature of the thoracic spine. Kyphosis is slightly exaggerated with apex at T7. There are acute minimally displaced fracture of the posterior-lateral left 9th, 11th, and 12th ribs. Be performed chest CT report for nonspine findings. Lumbar spine: 5 nonrib-bearing vertebral bodies. There is a chronic appearing nonunited fracture of the right L3 transverse process. Diffuse osteopenia. There are acute distracted fractures involving the left L1, L2, L3, and L4 transverse processes. 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 Mild retrolisthesis at L1-L2, L5-S1 and L2-L3. Subtotal intervertebral disc space height loss at L4-L5 and L2-L3. Vacuum disc formation at L5-S1, L4-L5, and L2-L3.There is an acute nondisplaced fracture of the L1 left inferior endplate. The left psoas muscle appears enlarged likely due to hematoma. Multilevel neural foraminal stenosis and central canal stenosis Procedure Note Irma Carlson MD - 06/11/2021 CT HEAD WO CONTRAST, CT LUMBAR SPINE WO CONTRAST, CT THORACIC SPINE WO CONTRAST, CT CERVICAL SPINE WO CONTRAST DATE: 06/11/2021 8:35 AM EXAMINATION: 1.Computed tomography (CT) of the head without contrast 2.CT of the cervical spine without contrast 3.CT of the thoracic spine without contrast 4.CT of the lumbar spine without contrast HISTORY: Trauma TECHNIQUE: CT of the head and cervical spine was performed without contrast according to standard protocol. Reformatted axial, sagittal,and coronal images of the thoracic and lumbar spine were obtained by the technologist from a concurrently performed body CT and sent to the workstation for review. COMPARISON: No prior study is available for comparison at the time ofthis dictation. FINDINGS: Head: Mild intracranial volume loss. No acute intra- or extra-axial fluid collections are identified. The ventricles are of normal size, shape, and morphology. The basilarcisterns are patent. No mass effect or midline shift is seen. The lua-whitematter differentiation is grossly preserved. No acute calvarial fracture is identified.. Bilateral lens replacements. Cervical spine: No abnormal thickening of the prevertebral soft tissues. 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 Thereis mild anterolisthesis at C3-C4 secondary to severe right-sided facet arthropathy. There is mild retrolisthesis at C4-C5, C5-C6, and C6-C7. There is subtotal intervertebral disc space height loss, endplate remodeling, marginal osteophyte formation, and vacuum disc formation at C5-C6, C6-C7, and C7-T1. There is mild degenerative anterolisthesis at C7-T1 secondary to bilateral severe facet arthropathy asymmetric on the left. Kyphosis. No acute fracture or traumatic subluxation of thecervical spine. The level central canal stenosis. Multilevel neural foraminal stenosis. Thoracic spine: There are 12 rib-bearing vertebral bodies. There is a chronic appearing superior compression fracture of the T7 vertebral body associated with Schmorl's node formation. There is approximately 40% height loss without significant retropulsion. There is diffuse osteopenia. Endplateremodeling is seen at other levels. There is dextrocurvature of the thoracic spine. Kyphosis is slightly exaggerated with apex at T7. There are acute minimally displacedfracture of the posterior-lateral left 9th, 11th, and 12th ribs. Be performedchest CT report for nonspine findings. Lumbar spine: 5 nonrib-bearing vertebral bodies. There is a chronic appearingnonunited fracture of the right L3 transverse process. Diffuse osteopenia. Thereare acute distracted fractures involving the left L1, L2, L3, and L4 transverse processes. 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 Mild retrolisthesis at L1-L2, L5-S1 and L2-L3. Subtotal intervertebral disc space height loss at L4-L5 and L2-L3. Vacuum disc formation atL5-S1, L4-L5, and L2-L3.There is an acute nondisplaced fracture of the L1 left inferior endplate. The left psoas muscle appears enlarged likely due to hematoma. Multilevel neural foraminal stenosis and central canalstenosis is seen. IMPRESSION: 1.No acute intracranial hemorrhage. 2.Acute nondisplaced fracture of the L1 left inferior endplate. 3.Acute displaced fractures of the L1-L4 left transverse processes. 4.Acute minimally displaced fracture of the posterior-lateral left 9th, 11th, and 12th rib. Report drafted by Ronni Esqueda MD ([employer] [employer]). I, Dr. IRMA CARLSON have personally reviewed and interpreted this examination/study. This report was electronically signed by IRMA CARLSON on 06/11/2021 3:19 PM . Da Mariee MD CT ORDERABLES * CT THORACIC SPINE WO CONTRAST - T/L-spine trauma, spine fracture (06/11/2021 8:34 AM CDT) Anatomical Region Laterality Modality Spine Computed Tomogra phy 06/11/2021 8:58 AM CDT Impressions 06/11/2021 3:19 PM CDT is seen. IMPRESSION: 1.No acute intracranial hemorrhage. 2.Acute nondisplaced fracture of the L1 left inferior endplate. 3.Acute displaced fractures of the L1-L4 left transverse processes. 4.Acute minimally displaced fracture of the posterior-lateral left 9th, 11th, and 12th rib. Report drafted by Ronni Esqueda MD ([facility] [employer]). I, Dr. IRMA CARLSON have personally reviewed and interpreted this examination/study. This report was electronically signed by IRMA CARLSON on 06/11/2021 3:19 PM . Narrative 06/11/2021 3:[address] HEAD WO CONTRAST, CT LUMBAR SPINE WO CONTRAST, CT THORACIC SPINE WO CONTRAST, CT CERVICAL SPINE WO CONTRAST DATE: 06/11/2021 8:35 AM EXAMINATION: 1.Computed tomography (CT) of the head without contrast 2.CT of the cervical spine without contrast 3.CT of the thoracic spine without contrast 4.CT of the lumbar spine without contrast HISTORY: Trauma TECHNIQUE: CT of the head and cervical spine was performed without contrast according to standard protocol. Reformatted axial, sagittal, and coronal images of the thoracic and lumbar spine were obtained by the technologist from a concurrently performed body CT and sent to the workstation for review. COMPARISON: No prior study is available for comparison at the time of this dictation. FINDINGS: Head: Mild intracranial volume loss. No acute intra- or extra-axial fluid collections are identified. The ventricles are of normal size, shape, and morphology. The basilar cisterns are patent. No mass effect or midline shift is seen. The lua-white matter differentiation is grossly preserved. No acute calvarial fracture is identified.. Bilateral lens replacements. Cervical spine: No abnormal thickening of the prevertebral soft tissues. 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 There is mild anterolisthesis at C3-C4 secondary to severe right-sided facet arthropathy. There is mild retrolisthesis at C4-C5, C5-C6, and C6-C7. There is subtotal intervertebral disc space height loss, endplate remodeling, marginal osteophyte formation, and vacuum disc formation at C5-C6, C6-C7, and C7-T1. There is mild degenerative anterolisthesis at C7-T1 secondary to bilateral severe facet arthropathy asymmetric on the left. Kyphosis. No acute fracture or traumatic subluxation of the cervical spine. The level central canal stenosis. Multilevel neural foraminal stenosis. Thoracic spine: There are 12 rib-bearing vertebral bodies. There is a chronic appearing superior compression fracture of the T7 vertebral body associated with Schmorl's node formation. There is approximately 40% height loss without significant retropulsion. There is diffuse osteopenia. Endplate remodeling is seen at other levels. There is dextrocurvature of the thoracic spine. Kyphosis is slightly exaggerated with apex at T7. There are acute minimally displaced fracture of the posterior-lateral left 9th, 11th, and 12th ribs. Be performed chest CT report for nonspine findings. Lumbar spine: 5 nonrib-bearing vertebral bodies. There is a chronic appearing nonunited fracture of the right L3 transverse process. Diffuse osteopenia. There are acute distracted fractures involving the left L1, L2, L3, and L4 transverse processes. 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 Mild retrolisthesis at L1-L2, L5-S1 and L2-L3. Subtotal intervertebral disc space height loss at L4-L5 and L2-L3. Vacuum disc formation at L5-S1, L4-L5, and L2-L3.There is an acute nondisplaced fracture of the L1 left inferior endplate. The left psoas muscle appears enlarged likely due to hematoma. Multilevel neural foraminal stenosis and central canal stenosis Procedure Note Irma Carlson MD - 06/11/2021 CT HEAD WO CONTRAST, CT LUMBAR SPINE WO CONTRAST, CT THORACIC SPINE WO CONTRAST, CT CERVICAL SPINE WO CONTRAST DATE: 06/11/2021 8:35 AM EXAMINATION: 1.Computed tomography (CT) of the head without contrast 2.CT of the cervical spine without contrast 3.CT of the thoracic spine without contrast 4.CT of the lumbar spine without contrast HISTORY: Trauma TECHNIQUE: CT of the head and cervical spine was performed without contrast according to standard protocol. Reformatted axial, sagittal,and coronal images of the thoracic and lumbar spine were obtained by the technologist from a concurrently performed body CT and sent to the workstation for review. COMPARISON: No prior study is available for comparison at the time ofthis dictation. FINDINGS: Head: Mild intracranial volume loss. No acute intra- or extra-axial fluid collections are identified. The ventricles are of normal size, shape, and morphology. The basilarcisterns are patent. No mass effect or midline shift is seen. The lua-whitematter differentiation is grossly preserved. No acute calvarial fracture is identified.. Bilateral lens replacements. Cervical spine: No abnormal thickening of the prevertebral soft tissues. 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 Thereis mild anterolisthesis at C3-C4 secondary to severe right-sided facet arthropathy. There is mild retrolisthesis at C4-C5, C5-C6, and C6-C7. There is subtotal intervertebral disc space height loss, endplate remodeling, marginal osteophyte formation, and vacuum disc formation at C5-C6, C6-C7, and C7-T1. There is mild degenerative anterolisthesis at C7-T1 secondary to bilateral severe facet arthropathy asymmetric on the left. Kyphosis. No acute fracture or traumatic subluxation of thecervical spine. The level central canal stenosis. Multilevel neural foraminal stenosis. Thoracic spine: There are 12 rib-bearing vertebral bodies. There is a chronic appearing superior compression fracture of the T7 vertebral body associated with Schmorl's node formation. There is approximately 40% height loss without significant retropulsion. There is diffuse osteopenia. Endplateremodeling is seen at other levels. There is dextrocurvature of the thoracic spine. Kyphosis is slightly exaggerated with apex at T7. There are acute minimally displacedfracture of the posterior-lateral left 9th, 11th, and 12th ribs. Be performedchest CT report for nonspine findings. Lumbar spine: 5 nonrib-bearing vertebral bodies. There is a chronic appearingnonunited fracture of the right L3 transverse process. Diffuse osteopenia. Thereare acute distracted fractures involving the left L1, L2, L3, and L4 transverse processes. 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 Mild retrolisthesis at L1-L2, L5-S1 and L2-L3. Subtotal intervertebral disc space height loss at L4-L5 and L2-L3. Vacuum disc formation atL5-S1, L4-L5, and L2-L3.There is an acute nondisplaced fracture of the L1 left inferior endplate. The left psoas muscle appears enlarged likely due to hematoma. Multilevel neural foraminal stenosis and central canalstenosis is seen. IMPRESSION: 1.No acute intracranial hemorrhage. 2.Acute nondisplaced fracture of the L1 left inferior endplate. 3.Acute displaced fractures of the L1-L4 left transverse processes. 4.Acute minimally displaced fracture of the posterior-lateral left 9th, 11th, and 12th rib. Report drafted by Ronni Esqueda MD ([employer] [employer]). Dr. IRMA Leija have personally reviewed and interpreted this examination/study. This report was electronically signed by IRMA CARLSON on 06/11/2021 3:19 PM . Da Mariee MD CT ORDERABLES * CT CERVICAL SPINE WO CONTRAST - C-Spine Trauma, Spine fracture (06/11/2021 8:34 AM CDT) Anatomical Region Laterality Modality Spine Computed Tomogra phy 06/11/2021 8:58 AM CDT Impressions 06/11/2021 3:19 PM CDT is seen. IMPRESSION: 1.No acute intracranial hemorrhage. 2.Acute nondisplaced fracture of the L1 left inferior endplate. 3.Acute displaced fractures of the L1-L4 left transverse processes. 4.Acute minimally displaced fracture of the posterior-lateral left 9th, 11th, and 12th rib. Report drafted by Ronni Esqueda MD ([facility] [employer]). Dr. IRMA Leija have personally reviewed and interpreted this examination/study. This report was electronically signed by IRMA CARLSON on 06/11/2021 3:19 PM . Narrative 06/11/2021 3:[address] HEAD WO CONTRAST, CT LUMBAR SPINE WO CONTRAST, CT THORACIC SPINE WO CONTRAST, CT CERVICAL SPINE WO CONTRAST DATE: 06/11/2021 8:35 AM EXAMINATION: 1.Computed tomography (CT) of the head without contrast 2.CT of the cervical spine without contrast 3.CT of the thoracic spine without contrast 4.CT of the lumbar spine without contrast HISTORY: Trauma TECHNIQUE: CT of the head and cervical spine was performed without contrast according to standard protocol. Reformatted axial, sagittal, and coronal images of the thoracic and lumbar spine were obtained by the technologist from a concurrently performed body CT and sent to the workstation for review. COMPARISON: No prior study is available for comparison at the time of this dictation. FINDINGS: Head: Mild intracranial volume loss. No acute intra- or extra-axial fluid collections are identified. The ventricles are of normal size, shape, and morphology. The basilar cisterns are patent. No mass effect or midline shift is seen. The lua-white matter differentiation is grossly preserved. No acute calvarial fracture is identified.. Bilateral lens replacements. Cervical spine: No abnormal thickening of the prevertebral soft tissues. 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 There is mild anterolisthesis at C3-C4 secondary to severe right-sided facet arthropathy. There is mild retrolisthesis at C4-C5, C5-C6, and C6-C7. There is subtotal intervertebral disc space height loss, endplate remodeling, marginal osteophyte formation, and vacuum disc formation at C5-C6, C6-C7, and C7-T1. There is mild degenerative anterolisthesis at C7-T1 secondary to bilateral severe facet arthropathy asymmetric on the left. Kyphosis. No acute fracture or traumatic subluxation of the cervical spine. The level central canal stenosis. Multilevel neural foraminal stenosis. Thoracic spine: There are 12 rib-bearing vertebral bodies. There is a chronic appearing superior compression fracture of the T7 vertebral body associated with Schmorl's node formation. There is approximately 40% height loss without significant retropulsion. There is diffuse osteopenia. Endplate remodeling is seen at other levels. There is dextrocurvature of the thoracic spine. Kyphosis is slightly exaggerated with apex at T7. There are acute minimally displaced fracture of the posterior-lateral left 9th, 11th, and 12th ribs. Be performed chest CT report for nonspine findings. Lumbar spine: 5 nonrib-bearing vertebral bodies. There is a chronic appearing nonunited fracture of the right L3 transverse process. Diffuse osteopenia. There are acute distracted fractures involving the left L1, L2, L3, and L4 transverse processes. 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 Mild retrolisthesis at L1-L2, L5-S1 and L2-L3. Subtotal intervertebral disc space height loss at L4-L5 and L2-L3. Vacuum disc formation at L5-S1, L4-L5, and L2-L3.There is an acute nondisplaced fracture of the L1 left inferior endplate. The left psoas muscle appears enlarged likely due to hematoma. Multilevel neural foraminal stenosis and central canal stenosis Procedure Note Irma Carlson MD - 06/11/2021 CT HEAD WO CONTRAST, CT LUMBAR SPINE WO CONTRAST, CT THORACIC SPINE WO CONTRAST, CT CERVICAL SPINE WO CONTRAST DATE: 06/11/2021 8:35 AM EXAMINATION: 1.Computed tomography (CT) of the head without contrast 2.CT of the cervical spine without contrast 3.CT of the thoracic spine without contrast 4.CT of the lumbar spine without contrast HISTORY: Trauma TECHNIQUE: CT of the head and cervical spine was performed without contrast according to standard protocol. Reformatted axial, sagittal,and coronal images of the thoracic and lumbar spine were obtained by the technologist from a concurrently performed body CT and sent to the workstation for review. COMPARISON: No prior study is available for comparison at the time ofthis dictation. FINDINGS: Head: Mild intracranial volume loss. No acute intra- or extra-axial fluid collections are identified. The ventricles are of normal size, shape, and morphology. The basilarcisterns are patent. No mass effect or midline shift is seen. The lua-whitematter differentiation is grossly preserved. No acute calvarial fracture is identified.. Bilateral lens replacements. Cervical spine: No abnormal thickening of the prevertebral soft tissues. 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 Thereis mild anterolisthesis at C3-C4 secondary to severe right-sided facet arthropathy. There is mild retrolisthesis at C4-C5, C5-C6, and C6-C7. There is subtotal intervertebral disc space height loss, endplate remodeling, marginal osteophyte formation, and vacuum disc formation at C5-C6, C6-C7, and C7-T1. There is mild degenerative anterolisthesis at C7-T1 secondary to bilateral severe facet arthropathy asymmetric on the left. Kyphosis. No acute fracture or traumatic subluxation of thecervical spine. The level central canal stenosis. Multilevel neural foraminal stenosis. Thoracic spine: There are 12 rib-bearing vertebral bodies. There is a chronic appearing superior compression fracture of the T7 vertebral body associated with Schmorl's node formation. There is approximately 40% height loss without significant retropulsion. There is diffuse osteopenia. Endplateremodeling is seen at other levels. There is dextrocurvature of the thoracic spine. Kyphosis is slightly exaggerated with apex at T7. There are acute minimally displacedfracture of the posterior-lateral left 9th, 11th, and 12th ribs. Be performedchest CT report for nonspine findings. Lumbar spine: 5 nonrib-bearing vertebral bodies. There is a chronic appearingnonunited fracture of the right L3 transverse process. Diffuse osteopenia. Thereare acute distracted fractures involving the left L1, L2, L3, and L4 transverse processes. 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 Mild retrolisthesis at L1-L2, L5-S1 and L2-L3. Subtotal intervertebral disc space height loss at L4-L5 and L2-L3. Vacuum disc formation atL5-S1, L4-L5, and L2-L3.There is an acute nondisplaced fracture of the L1 left inferior endplate. The left psoas muscle appears enlarged likely due to hematoma. Multilevel neural foraminal stenosis and central canalstenosis is seen. IMPRESSION: 1.No acute intracranial hemorrhage. 2.Acute nondisplaced fracture of the L1 left inferior endplate. 3.Acute displaced fractures of the L1-L4 left transverse processes. 4.Acute minimally displaced fracture of the posterior-lateral left 9th, 11th, and 12th rib. Report drafted by Ronni Esqueda MD ([employer]). I, Dr. IRMA CARLSON have personally reviewed and interpreted this examination/study. This report was electronically signed by IRMA CARLSON on 06/11/2021 3:19 PM . Da Mariee MD CT ORDERABLES * CT HEAD WO CONTRAST - Head Trauma, CSF leak, mental status changes (06/11/2021 8:34 AM CDT) Anatomical Region Laterality Modality Head Computed Tomogra phy 06/11/2021 8:58 AM CDT Impressions 06/11/2021 3:19 PM CDT is seen. IMPRESSION: 1.No acute intracranial hemorrhage. 2.Acute nondisplaced fracture of the L1 left inferior endplate. 3.Acute displaced fractures of the L1-L4 left transverse processes. 4.Acute minimally displaced fracture of the posterior-lateral left 9th, 11th, and 12th rib. Report drafted by Ronni Esqueda MD ([employer]). I, Dr. IRMA CARLSON have personally reviewed and interpreted this examination/study. This report was electronically signed by IRMA CARLSON on 06/11/2021 3:19 PM . Narrative 06/11/2021 3:[address] HEAD WO CONTRAST, CT LUMBAR SPINE WO CONTRAST, CT THORACIC SPINE WO CONTRAST, CT CERVICAL SPINE WO CONTRAST DATE: 06/11/2021 8:35 AM EXAMINATION: 1.Computed tomography (CT) of the head without contrast 2.CT of the cervical spine without contrast 3.CT of the thoracic spine without contrast 4.CT of the lumbar spine without contrast HISTORY: Trauma TECHNIQUE: CT of the head and cervical spine was performed without contrast according to standard protocol. Reformatted axial, sagittal, and coronal images of the thoracic and lumbar spine were obtained by the technologist from a concurrently performed body CT and sent to the workstation for review. COMPARISON: No prior study is available for comparison at the time of this dictation. FINDINGS: Head: Mild intracranial volume loss. No acute intra- or extra-axial fluid collections are identified. The ventricles are of normal size, shape, and morphology. The basilar cisterns are patent. No mass effect or midline shift is seen. The lua-white matter differentiation is grossly preserved. No acute calvarial fracture is identified.. Bilateral lens replacements. Cervical spine: No abnormal thickening of the prevertebral soft tissues. 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 There is mild anterolisthesis at C3-C4 secondary to severe right-sided facet arthropathy. There is mild retrolisthesis at C4-C5, C5-C6, and C6-C7. There is subtotal intervertebral disc space height loss, endplate remodeling, marginal osteophyte formation, and vacuum disc formation at C5-C6, C6-C7, and C7-T1. There is mild degenerative anterolisthesis at C7-T1 secondary to bilateral severe facet arthropathy asymmetric on the left. Kyphosis. No acute fracture or traumatic subluxation of the cervical spine. The level central canal stenosis. Multilevel neural foraminal stenosis. Thoracic spine: There are 12 rib-bearing vertebral bodies. There is a chronic appearing superior compression fracture of the T7 vertebral body associated with Schmorl's node formation. There is approximately 40% height loss without significant retropulsion. There is diffuse osteopenia. Endplate remodeling is seen at other levels. There is dextrocurvature of the thoracic spine. Kyphosis is slightly exaggerated with apex at T7. There are acute minimally displaced fracture of the posterior-lateral left 9th, 11th, and 12th ribs. Be performed chest CT report for nonspine findings. Lumbar spine: 5 nonrib-bearing vertebral bodies. There is a chronic appearing nonunited fracture of the right L3 transverse process. Diffuse osteopenia. There are acute distracted fractures involving the left L1, L2, L3, and L4 transverse processes. 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 Mild retrolisthesis at L1-L2, L5-S1 and L2-L3. Subtotal intervertebral disc space height loss at L4-L5 and L2-L3. Vacuum disc formation at L5-S1, L4-L5, and L2-L3.There is an acute nondisplaced fracture of the L1 left inferior endplate. The left psoas muscle appears enlarged likely due to hematoma. Multilevel neural foraminal stenosis and central canal stenosis Procedure Note Irma Carlson MD - 06/11/2021 CT HEAD WO CONTRAST, CT LUMBAR SPINE WO CONTRAST, CT THORACIC SPINE WO CONTRAST, CT CERVICAL SPINE WO CONTRAST DATE: 06/11/2021 8:35 AM EXAMINATION: 1.Computed tomography (CT) of the head without contrast 2.CT of the cervical spine without contrast 3.CT of the thoracic spine without contrast 4.CT of the lumbar spine without contrast HISTORY: Trauma TECHNIQUE: CT of the head and cervical spine was performed without contrast according to standard protocol. Reformatted axial, sagittal,and coronal images of the thoracic and lumbar spine were obtained by the technologist from a concurrently performed body CT and sent to the workstation for review. COMPARISON: No prior study is available for comparison at the time ofthis dictation. FINDINGS: Head: Mild intracranial volume loss. No acute intra- or extra-axial fluid collections are identified. The ventricles are of normal size, shape, and morphology. The basilarcisterns are patent. No mass effect or midline shift is seen. The lua-whitematter differentiation is grossly preserved. No acute calvarial fracture is identified.. Bilateral lens replacements. Cervical spine: No abnormal thickening of the prevertebral soft tissues. 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 Thereis mild anterolisthesis at C3-C4 secondary to severe right-sided facet arthropathy. There is mild retrolisthesis at C4-C5, C5-C6, and C6-C7. There is subtotal intervertebral disc space height loss, endplate remodeling, marginal osteophyte formation, and vacuum disc formation at C5-C6, C6-C7, and C7-T1. There is mild degenerative anterolisthesis at C7-T1 secondary to bilateral severe facet arthropathy asymmetric on the left. Kyphosis. No acute fracture or traumatic subluxation of thecervical spine. The level central canal stenosis. Multilevel neural foraminal stenosis. Thoracic spine: There are 12 rib-bearing vertebral bodies. There is a chronic appearing superior compression fracture of the T7 vertebral body associated with Schmorl's node formation. There is approximately 40% height loss without significant retropulsion. There is diffuse osteopenia. Endplateremodeling is seen at other levels. There is dextrocurvature of the thoracic spine. Kyphosis is slightly exaggerated with apex at T7. There are acute minimally displacedfracture of the posterior-lateral left 9th, 11th, and 12th ribs. Be performedchest CT report for nonspine findings. Lumbar spine: 5 nonrib-bearing vertebral bodies. There is a chronic appearingnonunited fracture of the right L3 transverse process. Diffuse osteopenia. Thereare acute distracted fractures involving the left L1, L2, L3, and L4 transverse processes. 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 Mild retrolisthesis at L1-L2, L5-S1 and L2-L3. Subtotal intervertebral disc space height loss at L4-L5 and L2-L3. Vacuum disc formation atL5-S1, L4-L5, and L2-L3.There is an acute nondisplaced fracture of the L1 left inferior endplate. The left psoas muscle appears enlarged likely due to hematoma. Multilevel neural foraminal stenosis and central canalstenosis is seen. IMPRESSION: 1.No acute intracranial hemorrhage. 2.Acute nondisplaced fracture of the L1 left inferior endplate. 3.Acute displaced fractures of the L1-L4 left transverse processes. 4.Acute minimally displaced fracture of the posterior-lateral left 9th, 11th, and 12th rib. Report drafted by Ronni Esqueda MD ([employer]). I, Dr. IRMA CARLSON have personally reviewed and interpreted this examination/study. This report was electronically signed by IRMA CARLSON on 06/11/2021 3:19 PM . Da Mariee MD CT ORDERABLES * (ABNORMAL) TEG 6 GLOBAL HEMOSTASIS W/ LYSIS (06/11/2021 8:27 AM CDT) Citrated Kaolin R (Reaction Time) 4.1(L) 4.6 - 9.1 min 06/11/2021 9:30 AM CDT [facility] Citrated Kaolin LY30 (Lysis) 1.1 0.0 - 2.6 % 06/11/2021 9:30 AM CDT [facility] Citrated RapidTEG MA (Max Amplitude) 66.4 52.0 - 70.0 mm 06/11/2021 9:30 AM CDT [facility] Citrated Functional Fibrinogen MA (Max Amplitude) 24.9 15.0 - 32.0 mm 06/11/2021 9:30 AM CDT [facility] Blood BLOOD SPECIMEN / Unknown Venipuncture / Unknown 06/11/2021 8:27 AM CDT 06/11/2021 8:32 AM CDT Da Mariee MD LAB - HEMATOLOGY O RDERABLES [facility] [address] [address], [facility] [phone] * (ABNORMAL) TEG 6S PLATELET MAPPING (06/11/2021 8:27 AM CDT) TEGPLM (Max Amplitude) Koalin 66 53 - 68 mm 06/11/2021 9:30 AM CDT [facility] TEGPLM (Max Amplitude) ACTF 14 2 - 19 mm 06/11/2021 9:30 AM CDT [facility] TEGPLM (Max Amplitude) ADP 60 45 - 69 mm 06/11/2021 9:30 AM CDT [facility] TEGPLM (Max Amplitude) AA 18(L) 51 - 71 mm 06/11/2021 9:30 AM T [facility] TEGPLM %Inhibition ADP 12 0 - 17 % 06/11/2021 9:30 AM T [facility] TEGPLM %Inhibition AA 93(H) 0 - 11 % 06/11/2021 9:30 AM T [facility] TEGPLM %Aggregation ADP 89 83 - 100 % 06/11/2021 9:30 AM [facility] TEGPLM % Aggregation AA 7(L) 89 - 100 % 06/11/2021 9:30 AM [facility] Blood BLOOD SPECIMEN / Unknown Venipuncture / Unknown 06/11/2021 8:27 AM CDT 06/11/2021 8:31 AM CDT Da Mariee MD LAB - HEMATOLOGY O RDERABLES [address] [address], [facility] [phone] * PTT [facility] (06/11/2021 8:27 AM CDT) APTT 25.4 23.0 - 38.4 Seconds 06/11/2021 8:51 AM [facility] Comment:Suggested therapeuti c range for full dose I.V. unfractionated heparin therapy for venous thromboembolism is 71 to 109 seconds. Blood BLOOD SPECIMEN / Unknown Venipuncture / Unknown 06/11/2021 8:27 AM CDT 06/11/2021 8:31 AM CDT Da Mariee MD LAB - COAGULATION ORDERABLES [address] [address], [place] [phone] * PT-INR [facility] (06/11/2021 8:27 AM CDT) PT 14.1 12.1 - 14.8 Seconds 06/11/2021 8:50 AM [facility] INR 1.1 See Comment 06/11/2021 8:50 AM CDT [facility] Comment:The suggested therap eutic range for standard coumadin (warfarin) therapy is an INR of 2.0-3.0. For high-risk patients (Mechanical Mitral Valve Prosthesis, etc.), the suggested prophylactic therapeutic range is an INR of 2.5-3.5. Blood BLOOD SPECIMEN / Unknown Venipuncture / Unknown 06/11/2021 8:27 AM CDT 06/11/2021 8:31 AM CDT Da Mariee MD LAB - COAGULATION ORDERABLES [address] [address], [facility] [phone] * (ABNORMAL) CK BLOOD (06/11/2021 8:27 AM CDT) CK Total 377(H) 30 - 200 U/L 06/11/2021 9:06 AM T [facility] Blood BLOOD SPECIMEN / Unknown Venipuncture / Unknown 06/11/2021 8:27 AM CDT 06/11/2021 8:33 AM CDT Da Mariee MD LAB - CHEMISTRY OR DERABLES [address] [address], [facility] [phone] * ALCOHOL ETHYL BLOOD (06/11/2021 8:27 AM CDT) Ethanol (mg/dL) <10 <10 mg/dL 9:06 AM CDT [facility] Ethanol Calculated (g/dL) <0.010 <0.010 g/dL 06/11/2021 9:06 AM T [facility] Blood BLOOD SPECIMEN / Unknown Venipuncture / Unknown 06/11/2021 8:27 AM CDT 06/11/2021 8:33 AM CDT Narrative [facility] - 06/11/2021 9:06 AM CDT Ethanol Interp <10: None Detected. Depression of FAN MAIL CLERK: >100 mg/dl Potentially Critical: >250 mg/dl Potentially Fatal >400 mg/dl Ethanol in the patient's blood will contribute to the osmolar gap. Ethanol's contribution to the osmolar gap can be estimated by dividing the concentration of ethanol in mg/dL by 4.6. This test is for clinical use only and does not equal a SANDRINE for legal purposes. Da Mariee MD LAB - CHEMISTRY OR DERABLES Performing Organization Address City/[facility]/ZIP Co de Phone Number [facility] [address] [place] [phone], [place] [phone] * (ABNORMAL) CREATININE - POCT INTERFACED (06/11/2021 8:21 AM CDT) [facility] Creatinine POCT 1.66(H) 0.30 - 1.30 mg/dL 06/11/2021 8:23 AM CDT [facility] eGFR 47(L) >90 mL/min/1.7 3 m2 06/11/2021 8:23 AM CDT [facility] Blood BLOOD SPECIMEN / Unknown 06/11/2021 8:21 AM CDT 06/11/2021 8:23 AM CDT Da Mariee MD LAB - POINT OF CAR E ORDERABLES Performing Organization Address [facility] de Phone Number [address] [address], [facility] [phone] * CARDIAC RHYTHM STRIP ORDER (02/25/2009 9:31 AM SERGING MACHINE OPERATOR) Narrative 02/25/2009 9:31 AM SERGING MACHINE OPERATOR Ordered by an unspecified provider. Transcriptions Document, Scanned - 02/21/2009 12:00 AM SERGING MACHINE OPERATOR Scanned Document CARDIAC SERVICES ORD ERABLES * XR SPINE 1 VIEW (02/21/2009 2:11 PM SERGING MACHINE OPERATOR) Anatomical Region Laterality Modality Spine Radiographic Samantha ging 02/21/2009 3:33 PM SERGING MACHINE OPERATOR Impressions 02/21/2009 4:21 PM SERGING MACHINE OPERATOR Intraoperative evaluation. Narrative 02/21/2009 4:21 PM SERGING MACHINE OPERATOR LUMBAR SPINE, SINGLE LATERAL VIEW HISTORY: Intraoperative evaluation. FINDINGS: A single lateral view of the lumbosacral spine shows instruments projected at the L4-L5 interspace posteriorly. Procedure Note Kevin Cooper MD - 02/21/2009 LUMBAR SPINE, SINGLE LATERAL VIEW HISTORY: Intraoperative evaluation. FINDINGS: A single lateral view of the lumbosacral spine shows instruments projected at the L4-L5 interspace posteriorly. IMPRESSION Intraoperative evaluation. Heber Tolentino MD DIAGNOSTIC IMAGING O [facility] Care Teams Alining Inspector Relationship Specialty Start Date End Date Karla Eddy PA-C [address] [place] [phone] PCP - General 07/17/20
--- OUTSIDE RECORDS SUMMARY | 2024-05-06 14:09 | XMS_ITS | Data Portability ---
Author Organization [facility] RACHELDejuan Corado Address [address] [place] [address] Care Team Providers Care Electrical Linesworker Name Role Phone RAGHU HANEY Envelope Fold Operator LUCHO GILES Welding Machine Operator Thermit Assessment No assessment recorded. Plan of Treatment Reminders Order Date Submit Date Provider Last Modified By Organization Details Last Modified Time Details Appointments ANY 30 2024 02:00P Gladys Renee MD Not available Not available Not available Lab albumin/ creatini ne, mass ratio, urine 2024 025 [facility], [address] [place] [address], [address], [place], [address], 05/01/2024 19:22:41 CMP, serum or plasma 2024 025 [facility], [address] [place] [address], [address], [place], [address], 05/01/2024 16:58:32 lipid panel, serum 2024 025 [facility], [address] [facility] [address] [facility], [address], [place], [address], 05/01/2024 16:58:31 BMP, serum or plasma 2023 024 [email or web address] [facility], [address], [address], [place], [address], 04/27/2024 10:13:09 urinalys is macro (dipstic k) panel, urine 2023 024 dilip NEALBRANDO, [address], [address], [place], [address], 04/27/2024 10:13:09 lipid panel, serum 2023 024 HEATH[facility] LOPEZTITA, [address], [address], [place], [address], 10/16/2023 07:16:36 CMP, serum or plasma 2023 024 [facility], [address], [address], [place], [address], 10/16/2023 07:16:36 CBC 2023 024 [facility] LOPE[facility], [address], [address], [place], [address], 10/16/2023 07:16:38 urinalys is, complete 2023 024 dilip NEALBRANDO, [address], [address], [place], [address], 03/27/2024 10:03:09 PSA, total, serum or plasma 2023 024 [facility]ATH[facility] LOPEZTITA, [address], [address], [place], [address], 10/16/2023 08:26:42 culture, wound 2021 022 [facility] LOPEZTITA, [address], [address], [place], [address], 11/03/2021 13:08:37 Referral cardiolo gist referral 2024 025 [facility], [address], [place], [address], 05/01/2024 18:10:[address] referral - weight loss, constipa tion, 2023 024 ARASELI Jones MD, [address], [address], [place], [address], 04/27/2024 12:35:23 hand surgeon referral - subcutan eous mass left green aspect hand 2023 024 [email or web address] Bonifacio Barnard MD, [address], [address], [place], [address], 02/15/2024 11:52:41 hand surgeon referral 2022 023 [facility], [address] [place], [address], 03/31/2023 12:40:13 substanc e abuse rehabili tation referral 2021 022 [email or web address] [facility], [address] [place], [address], 06/03/2022 08:13:07 Procedures None recorded . Surgeries None recorded . Imaging XR, pelvis, 1 or 2 view 2023 024 [facility] [address] [place], [address], 01/25/2024 17:06:50 XR, sacrum + coccyx 2023 024 [facility] [address] [place], [address], 01/25/2024 17:07:20 XR, chest 2023 024 [facility] [address] [place], [address], 02/02/2024 14:23:38 US, hand 2022 023 [facility]), [address] [place], [address], 09/29/2022 13:19:05 Medication Orders aspirin 81 mg tablet,d elayed release 2024 025 [facility] #[id number], [address] [place], [place], [id number], 05/01/2024 19:22:44 clopidog rel 75 mg tablet 2024 025 [facility] #52560, [address] [place], [place], [id number], 05/01/2024 19:22:45 albutero l sulfate HFA 90 mcg/actu ation aerosol inhaler 2024 025 [facility] #49333, [address] [place], [place], [id number], 05/01/2024 17:00:32 doxycycl ine hyclate 100 mg capsule 2024 025 [facility] #55347, [address] [place], [place], [id number], 05/01/2024 17:00:32 Flonase Allergy Relief 50 mcg/actu ation nasal spray,curtis spension 2024 025 [facility] #75501, [address] [place], [place], [id number], 05/01/2024 17:00:31 enalapri l maleate 10 mg tablet 2024 025 [facility] #53734, [address] [place], [place], [id number], 05/01/2024 19:22:44 furosemi de 20 mg tablet 2024 025 [facility] #84386, [address] [place], [place], [id number], 05/01/2024 19:22:47 metoprol ol tartrate 25 mg tablet 2024 025 [facility]40589, [address] [place], [place], [id number], 05/01/2024 19:22:46 rosuvast atin 20 mg tablet 2024 025 [facility] #67680, [address] [place], [place], [id number], 05/01/2024 19:22:42 clotrima zole 1 % topical cream 2023 024 [facility] #94881, [address] [place], [place], [id number], 01/12/2024 15:06:18 Wellbutr in SR 150 mg tablet, 12 hr sustaine d-releas e 2021 022 [email or web address] [facility] #39165, [address] [place], [place], [id number], 09/27/2023 16:23:40 Bactrim DS 800 mg-160 mg tablet 2021 022 [email or web address] [facility] #48399, [address] [place], [place], [id number], 08/26/2022 16:37:57 Patient TargetsNo targets recorded. Patient Instructions Encounter Date Encounter Id Patient Instructions Last Modified By Organization Details Last Modified Time 10/28/2021 [id number] substance use disorder: care instructions [email or web address] Not available 11/12/2021 18:42:58 Reason for Referral Substance Abuse Rehabilitati on Referral for Substance abuse polysubstance abuse Referring Physician: Karla Eddy, Slate Handler, Encounter Date: 10/28/2021 Hand Surgeon Referral for So ft tissue lesion of wrist and hand Referring Physician: Karla Eddy Slate Handler, Encounter Date: 08/26/2022 Hand Surgeon Referral for Ma ss of subcutaneous tissue of left hand subcutaneous mass left green aspect hand Referring Physician: Sima Renee [facility], Encounter Date: 09/27/2023 Human Resources Hr Representative Referral for Weight loss weight loss, constipation, Referring Physician: Sima Renee [facility], Encounter Date: 01/12/2024 Envelope Fold Operator Referral for Hi story of myocardial infarction Referring Physician: Sima Renee [facility], Encounter Date: 05/01/2024 Results Created Date Observation Date Name Description Value Unit Range Abnormal Flag Note LastModifiedBy Organization Detail LastModifiedTime 10/29/19 22 10/31/2021 ANAER OBIC AND AEROB IC CULTU RE aerobic culture Final report abnormal Not Available [facility] ([facility]) [address] [facility], [place], [address], 11/03/2021 13:08:37 10/29/19 22 10/31/2021 ANAER OBIC AND AEROB IC CULTU RE result 1 Commen t abnormal Beta hemol ytic Strep tococ cus, group A Moder ate growt h Penic illin and ampic illin are drugs of choic e for treat ment of beta- hemol ytic strep tococ miguelina infec tions . Susce ptibi lity testi ng of penic illin s and other beta- lacta m agent s appro barry by the FDA for treat ment of beta- hemol ytic strep tococ miguelina infec tions need not be perfo rmed routi lisa becau se nonsu scept ible isola kota are extre álvaro rare in any beta- hemol ytic strep tococ cus and have not been repor antonino for Strep tococ cus pyoge kary (grou p A). (CLSI ) Not Available [facility] ([facility]) [address] [facility], [place], [address], 11/03/2021 13:08:37 10/29/19 22 10/31/2021 ANAER OBIC AND AEROB IC CULTU RE result 2 Mixed skin joel Light growt h Not Available [facility] ([facility]) [address] [facility] [facility], [place], [address], 11/03/2021 13:08:37 10/29/19 22 11/03/2021 ANAER OBIC AND AEROB IC CULTU RE anaerobic culture Final report Not Available [facility] ([facility]) [address] [facility], [place], [address], 11/03/2021 13:08:37 10/29/19 22 11/03/2021 ANAER OBIC AND AEROB IC CULTU RE result 1 Commen t No anaer obic growt h in five days. Not Available [facility] ([facility]) [address] [facility], [place], [address], 11/03/2021 13:08:37 10/16/19 23 10/15/2022 Lipid 1995 panel - Serum or Plasm a cholesterol [mass/volume ] in serum or plasma 140 mg/dL high: 200mg/ dL Dennise stero l Total 140 <200 mg/dL 10/15 9:[address] [facility] Not Available Not Available 04/27/2024 12:20:37 10/16/19 23 10/15/2022 Lipid 1995 panel - Serum or Plasm a cholesterol in HDL [mass/volume ] in serum or plasma 35 mg/dL low: 40mg/d L low HDL 35 (L) >40 mg/dL 10/15 9:[address] [facility] Not Available Not Available 04/27/2024 12:20:37 10/16/19 23 10/15/2022 Lipid 1995 panel - Serum or Plasm a cholesterol in LDL [mass/volume ] in serum or plasma by calculation 94 mg/dL high: 100mg/ dL LDL Calcu lated 94 <100 mg/dL 10/15 9:[address] [facility] Not Available Not Available 04/27/2024 12:20:37 10/16/19 23 10/15/2022 Lipid 1996 panel - Serum or Plasm a tricyclic antidepressa nts [mass/volume ] in serum or plasma 53 mg/dL high: 150mg/ dL Trigl yceri julio 53 <150 mg/dL 10/15 9:[address] [facility] Not Available Not Available 04/27/2024 12:20:37 10/16/19 23 10/15/2022 Lipid 1996 panel - Serum or Plasm a interpretati on and review of laboratory results Abnorm al Not Available Not Available 12:20:37 10/15/19 24 10/16/2023 LIPID PANEL cholesterol, total 157 mg/dL 100-19 9 Not Available [facility] ([facility]) [address] [place], [address], 10/16/2023 07:16:35 10/15/19 24 10/16/2023 LIPID PANEL triglyceride s 132 mg/dL 0-149 Not Available [facility] ([facility]) [address] [place], [address], 10/16/2023 07:16:35 10/15/19 24 10/16/2023 LIPID PANEL HDL cholesterol 32 mg/dL >39 below low normal Not Available [facility] ([facility]) [address] [place], [address], 10/16/2023 07:16:35 10/15/19 24 10/16/2023 LIPID PANEL VLDL cholesterol miguelina 24 mg/dL 5-40 Not Available [facility] ([facility]) [address] [place], [address], 10/16/2023 07:16:35 10/15/19 24 10/16/2023 LIPID PANEL LDL chol calc ([facility]) 101 mg/dL 0-99 above high normal Not Available [facility] ([facility]) [address] [facility] [place], [address], 10/16/2023 07:16:35 10/15/19 24 10/16/2023 COMP. METAB OLIC PANEL (14) glucose 105 mg/dL 70-99 above high normal Not Available [facility] ([facility]) [address] [facility] [place], [address], 10/16/2023 07:16:36 10/15/19 24 10/16/2023 COMP. METAB OLIC PANEL (14) BUN 44 mg/dL 8-27 above high normal Not Available [facility] ([facility]) [address] [facility] [place], [address], 10/16/2023 07:16:36 10/15/19 24 10/16/2023 COMP. METAB OLIC PANEL (14) creatinine 3.07 mg/dL 0.76-1 .27 above high normal Not Available [facility] ([facility]) [address] [facility], [place], [address], 10/16/2023 07:16:36 10/15/19 24 10/16/2023 COMP. METAB OLIC PANEL (14) eGFR 22 mL/mi n/1.7 3 >59 below low normal Not Available [facility] ([facility]) [address] [facility] [place], [address], 10/16/2023 07:16:36 10/15/19 24 10/16/2023 COMP. METAB OLIC PANEL (14) BUN/creatini ne ratio 14 10-24 Not Available [facility] ([facility]) [address] [facility] [place], [address], 10/16/2023 07:16:36 10/15/19 24 10/16/2023 COMP. METAB OLIC PANEL (14) sodium 142 mmol/ L 134-14 4 Not Available [facility] ([facility]) [address] [facility] [place], [address], 10/16/2023 07:16:36 10/15/19 24 10/16/2023 COMP. METAB OLIC PANEL (14) potassium 4.4 mmol/ L 3.5-5. 2 Not Available [facility] ([facility]) [address] [facility] [facility] [place], [address], 10/16/2023 07:16:36 10/15/19 24 10/16/2023 COMP. METAB OLIC PANEL (14) chloride 109 mmol/ L 96-106 above high normal Not Available [facility] ([facility]) [address] [facility] [facility] [place], [address], 10/16/2023 07:16:36 10/15/19 24 10/16/2023 COMP. METAB OLIC PANEL (14) carbon dioxide, total 16 mmol/ L 20-29 below low normal Not Available [facility] ([facility]) [address] [facility] [place], [address], 10/16/2023 07:16:36 10/15/19 24 10/16/2023 COMP. METAB OLIC PANEL (14) calcium 8.8 mg/dL 8.6-10 .2 Not Available [facility] ([facility]) [address] [facility] [place], [address], 10/16/2023 07:16:36 10/15/19 24 10/16/2023 COMP. METAB OLIC PANEL (14) protein, total 7.1 g/dL 6.0-8. 5 Not Available [facility] ([facility]) [address] [facility] [place], [address], 10/16/2023 07:16:36 10/15/19 24 10/16/2023 COMP. METAB OLIC PANEL (14) albumin 4.2 g/dL 3.8-4. 9 Not Available [facility] ([facility]) [address] [facility] [place], [address], 10/16/2023 07:16:36 10/15/19 24 10/16/2023 COMP. METAB OLIC PANEL (14) globulin, total 2.9 g/dL 1.5-4. 5 Not Available [facility] ([facility]) [address] [facility] [place], [address], 10/16/2023 07:16:36 10/15/19 24 10/16/2023 COMP. METAB OLIC PANEL (14) bilirubin, total 0.3 mg/dL 0.0-1. 2 Not Available [facility] ([facility]) [address] [facility] [place], [address], 10/16/2023 07:16:36 10/15/19 24 10/16/2023 COMP. METAB OLIC PANEL (14) alkaline phosphatase 82 IU/L 44-121 Not Available [facility]) [address] [facility] [place], [address], 10/16/2023 07:16:36 10/15/19 24 10/16/2023 COMP. METAB OLIC PANEL (14) AST (SGOT) 24 IU/L 0-40 Not Available [facility] ([facility]) [address] [facility] [place], [address], 10/16/2023 07:16:36 10/15/19 24 10/16/2023 COMP. METAB OLIC PANEL (14) ALT (SGPT) 20 IU/L 0-44 Not Available [facility] ([facility]) [address] [place], [address], 10/16/2023 07:16:36 10/15/19 24 10/15/2023 UNABL E TO VOID unable to void Commen t Patie nt unabl e to void. Urine to be colle cted at a later date. Not Available [facility] ([facility]) [address] [facility] [place], [address], 10/16/2023 07:16:37 10/15/19 24 10/16/2023 CBC, PLATE LET, NO DIFFE RENTI AL WBC 9.4 x10e3 /uL 3.4-10 .8 Not Available [facility] ([facility]) [address] [facility], [place], [address], 10/16/2023 07:16:37 10/15/19 24 10/16/2023 CBC, PLATE LET, NO DIFFE RENTI AL RBC 3.90 x10e6 /uL 4.14-5 .80 below low normal Not Available [facility] ([facility]) [address] [facility], [place], [address], 10/16/2023 07:16:37 10/15/1910/16/2023 CBC, PLATE LET, NO DIFFE RENTI AL hemoglobin 11.6 g/dL 13.0-1 7.7 below low normal Not Available [facility] ([facility]) [address] [facility], [place], [address], 10/16/2023 07:16:37 10/15/1910/16/2023 CBC, PLATE LET, NO DIFFE RENTI AL hematocrit 35.7 % 37.5-5 1.0 below low normal Not Available [facility] ([facility]) [address] [facility], [place], [address], 10/16/2023 07:16:37 10/15/1910/16/2023 CBC, PLATE LET, NO DIFFE RENTI AL MCV 92 fL 79-97 Not Available [facility] ([facility]) [address] [place], [address], 10/16/2023 07:16:37 10/15/1910/16/2023 CBC, PLATE LET, NO DIFFE RENTI AL MCH 29.7 pg 26.6-3 3.0 Not Available [facility] ([facility]) [address] [place], [address], 10/16/2023 07:16:37 10/15/19 24 10/16/2023 CBC, PLATE LET, NO DIFFE RENTI AL MCHC 32.5 g/dL 31.5-3 5.7 Not Available [facility] ([facility]) [address] [facility], [place], [address], 10/16/2023 07:16:37 10/15/19 24 10/16/2023 CBC, PLATE LET, NO DIFFE RENTI AL RDW 13.8 % 11.6-1 5.4 Not Available [facility] ([facility]) [address] [facility], [place], [address], 10/16/2023 07:16:37 10/15/1910/16/2023 CBC, PLATE LET, NO DIFFE RENTI AL platelets 329 x10e3 /uL 150-45 0 Not Available [facility] ([facility]) [address] [facility], [place], [address], 10/16/2023 07:16:37 10/15/1910/16/2023 PROST ATE-S PECIF IC AG prostate specific Ag 1.4 NG/mL 0.0-4. 0 Odell ECLIA metho dolog y. Accor ding to the Ameri can [employer]o g[employer] iatio n, Serum PSA shoul d decre ase and remai n at undet ectab le level s after radic al prost atect thanh. The AUA defin es bioch emica l recur rence as an initi al PSA value 0.2 ng/mL or great er follo wed by a subse quent confi rmato ry PSA value 0.2 ng/mL or great er. Value s obtai jose with diffe rent assay metho ds or kits canno t be used inter waggoner eajohn . Resul ts canno t be inter prete d as absol kenia evide nce of the prese nce or absen ce of raul martin se. Not Available [facility] ([facility]) [address] [facility], [place], [address], 10/16/2023 08:26:42 10/20/19 24 10/21/2023 BASIC METAB OLIC PANEL (8) glucose 96 mg/dL 70-99 Not Available [facility] ([facility]) [address] [place], [address], 10/21/2023 06:19:54 10/20/19 24 10/21/2023 BASIC METAB OLIC PANEL (8) BUN 57 mg/dL 8-27 above high normal Not Available [facility] ([facility]) [address] [place], [address], 10/21/2023 06:19:54 10/20/19 24 10/21/2023 BASIC METAB OLIC PANEL (8) creatinine 2.29 mg/dL 0.76-1 .27 above high normal Not Available [facility] ([facility]) [address] [place], [address], 10/21/2023 06:19:54 10/20/19 24 10/21/2023 BASIC METAB OLIC PANEL (8) eGFR 32 mL/mi n/1.7 3 >59 below low normal Not Available [facility] ([facility]) [address] [place], [address], 10/21/2023 06:19:54 10/20/19 24 10/21/2023 BASIC METAB OLIC PANEL (8) BUN/creatini ne ratio 25 10-24 above high normal Not Available [facility] ([facility]) [address] [place], [address], 10/21/2023 06:19:54 10/20/19 24 10/21/2023 BASIC METAB OLIC PANEL (8) sodium 140 mmol/ L 134-14 4 Not Available [facility] ([facility]) [address] [place], [address], 10/21/2023 06:19:54 10/20/19 24 10/21/2023 BASIC METAB OLIC PANEL (8) potassium 4.7 mmol/ L 3.5-5. 2 Not Available [facility] ([facility]) [address] [place], [address], 10/21/2023 06:19:54 10/20/19 24 10/21/2023 BASIC METAB OLIC PANEL (8) chloride 108 mmol/ L 96-106 above high normal Not Available [facility] ([facility]) [address] [place], [address], 10/21/2023 06:19:54 10/20/19 24 10/21/2023 BASIC METAB OLIC PANEL (8) carbon dioxide, total 15 mmol/ L 20-29 below low normal Not Available [facility] ([facility]) [address] [place], [address], 10/21/2023 06:19:54 10/20/19 24 10/21/2023 BASIC METAB OLIC PANEL (8) calcium 9.1 mg/dL 8.6-10 .2 Not Available [facility] ([facility]) [address] [facility], [place], [address], 10/21/2023 06:19:54 10/20/19 24 10/21/2023 HEMOG LOBIN A1C hemoglobin A1C 5.5 % 4.8-5. 6 Predi abete s: 5.7 - 6.4 Diabe kota: >6.4 Glyce yari contr ol for adult s with diabe kota: <7.0 Not Available [facility] ([facility]) [address] [place], [address], 10/21/2023 06:19:56 11/19/19 22 11/12/2021 trans -thor acic echoc ardio gram (TTE) (PROC ) No observ ation record ed. [email or web address] [facility] [address], [place], [address], 11/19/2021 09:54:22 11/19/19 22 11/12/2021 trans -thor acic echoc ardio gram (TTE) (PROC ) No observ ation record ed. [email or web address] [facility] [address], [place], [address], 11/19/2021 09:53:04 09/30/19 23 09/29/2022 US, hand No observ ation record ed. [facility] [address] [place], [address], 09/30/2022 11:09:59 10/07/19 23 10/06/2022 MRI, hand, w/o contr ast No observ ation record ed. [facility] [address] [place], [address], 10/06/2022 15:53:10 10/16/19 23 10/14/2022 US, romain x, venou s, upper extre mity No observ ation record ed. [address], [place], [address], 10/15/2022 10:57:30 09/02/19 24 09/01/2023 US, renal arter y No observ ation record ed. [email or web address] [facility] [address], [place], [address], 01/18/2024 16:25:11 09/02/19 24 09/01/2023 US, renal arter y No observ ation record ed. [email or web address] [facility] [address], [place], [address], 09/03/2023 09:48:13 09/02/19 24 09/01/2023 US, duple x, renal arter y No observ ation record ed. [facility] [address], [place], [address], 01/17/2024 10:21:54 09/03/19 24 09/01/2023 stres s echoc ardio gram No observ ation record ed. lois [facility] [address] [facility] [address], [place], [address], 01/17/2024 10:06:35 09/03/19 24 09/01/2023 trans -thor acic echoc ardio gram (TTE) (PROC ) No observ ation record ed. [facility] [address], [place], [address], 03/01/2024 16:18:39 09/03/19 24 09/01/2023 trans -thor acic echoc ardio gram (TTE) (PROC ) No observ ation record ed. [facility] [address], [place], [address], 03/01/2024 16:19:09 01/25/20 24 01/25/2024 XR, pelvi s, 1 or 2 view No observ ation record ed. [facility] [address] [place], [address], 02/08/2024 12:50:57 01/25/20 24 01/25/2024 XR, sacru m + coccy x No observ ation record ed. [facility] [address] [place], [address], 02/08/2024 12:50:58 02/02/20 24 02/02/2024 XR, chest No observ ation record ed. [facility] [address] [place], [address], 02/08/2024 12:51:07 Result Notes None recorded. Problems Name Problem SNOMED Code Status Onset Date Resolution Date Notes Provider Name and Address Organization Details Recorded Time Benign essential hypertensi on 4665006 Active 2016 Not Available [facility] 06:50:22 Osteoarthr itis of wrist 318122381 Active 2019 Not Available [employer] 10/06/202 1 06:50:22 Primary erectile dysfunctio n 942700582 Active 2019 Not Available [employer] 06:50:22 Pulmonary emphysema 31714008 Active 2021 CHRISTINA RIVERA Attn: Accounting ,[address], [place], [address] , [place] [facility] 11:25:04 Smoker 99531818 Active 2021 CHRISTINA RIVERA Attn: Accounting ,[address], [place], [address] , [place] [facility] 2 11:25:06 Chronic kidney disease stage 3 783995193 Active 2021 CHRISTINA RIVERA Attn: Accounting ,[address], [place], [address] , [place] - [facility] 2 11:30:30 Closed fracture lumbar vertebra 091086499 Active 2021 Carlene Copeland MD Attn: Accounting ,[address], [place], [address] , [place] [facility] 2 11:20:28 Benign hypertensi on 99295559 Active Not Available [employer] 06:50:22 Chronic low back pain 826195865 Active Not Available [employer] 06:50:22 Injury of head 00534241 Active Not Available [employer] 06:50:22 Chronic hepatitis C 716861737 Active Not Available [facility] 06:50:22 Tobacco user 820561127 Active Not Available [facility] 06:50:22 Coronary arterioscl erosis in [place] artery 1844620726212 Active 2016 Not Available [employer] 06:50:22 Muscle pain 08119256 Active 2016 Not Available [employer] 06:50:22 Nicotine dependence 53999123 Active 2016 Not Available [employer] 06:50:22 Notes: My BP Pain in the l eft leg Problem Notes None recorded. Procedures Surgical History Date Name Laterality Status Provider Name and Address Organization Details Recorded Time Eye Surgery completed Tyler Leal MD Attn: Accounting,[address], [place], [address], [place] - [facility] 07/10/2014 11:13:29 Back Surgery completed June Lincoln , [facility] - [facility] 07/10/2014 10:52:34 Imaging Results Imaging Date Name Status LastModified by Organization Details LastModified Time 11/12/2021 trans-thoracic echocardiogram (TTE) (PROC) completed [address] [facility] [address], [place], [address], 11/19/2021 09:54:22 11/12/2021 trans-thoracic echocardiogram (TTE) (PROC) completed [email or web address] [facility] [address], [place], [address], 11/19/2021 09:53:04 09/29/2022 US, hand completed [facility] [address] [place], [address], 09/30/2022 11:09:59 10/06/2022 MRI, hand, w/o contrast completed [facility] [address] [place], [address], 10/06/2022 15:53:10 10/14/2022 US, duplex, venous, upper extremity completed [place] [address] [facility] [address], [place], [address], 10/15/2022 10:57:30 09/01/2023 US, renal artery completed [email or web address] [facility] [address], [place], [address], 01/18/2024 16:25:11 09/01/2023 US, renal artery completed [email or web address] [facility] [address], [place], [address], 09/03/2023 09:48:13 09/01/2023 US, duplex, renal artery completed [facility] [address], [place], [address], 01/17/2024 10:21:54 09/01/2023 stress echocardiogram completed [facility] [address] [facility] [address], [place], [address], 01/17/2024 10:06:35 09/01/2023 trans-thoracic echocardiogram (TTE) (PROC) completed [facility] [address], [place], [address], 03/01/2024 16:18:39 09/01/2023 trans-thoracic echocardiogram (TTE) (PROC) completed [facility] [address], [place], [address], 03/01/2024 16:19:09 01/25/2024 XR, pelvis, 1 or 2 view completed [facility] [address] [place], [address], 02/08/2024 12:50:57 01/25/2024 XR, sacrum + coccyx completed [facility] [address] [place], [address], 02/08/2024 12:50:58 02/02/2024 XR, chest completed [facility] [address] [place], [address], 02/08/2024 12:51:07 Procedure Notes None recorded. Medical Equipment None Reported. Allergies No known drug allergies Medications Name Sig Start Date Stop Date Status Note LastModified by Organization Details LastModified Time cyclobenzap rine 10 mg tablet TAKE 1/2 TO 1 TABLET BY MOUTH TWICE DAILY 09/26 completed Not Available Not Available Not Available atorvastati n 40 mg tablet 06/27 completed Not Available Not Available Not Available bupropion HCl SR 150 mg tablet,12 hr sustained-r elease TAKE 1 TABLET BY MOUTH TWICE DAILY 09/26 completed Not Available Not Available Not Available prednisone 10 mg tablet TAKE 1 TABLET BY MOUTH THREE TIMES DAILY FOR 3 DAYS THEN 1 TWICE DAILY FOR 2 DAYS THEN 1 DAILY FOR 1 DAY 06/27 completed Not Available Not Available Not Available doxycycline hyclate 100 mg capsule one capsule po bid with food 2024 active Not Available Not Available Not Avai lable enalapril maleate 10 mg tablet one tab po q d 2024 active Not Available Not Available Not Avai lable clindamycin HCl 300 mg capsule TAKE 1 CAPSULE BY MOUTH FOUR TIMES DAILY FOR 5 DAYS 09/26 completed Not Available Not Available Not Available enalapril maleate 5 mg tablet Take 1 tablet twice a day by oral route. 08/07 completed Not Available Not Available Not Available sildenafil 50 mg tablet TAKE 1 TABLET BY MOUTH EVERY DAY NEEDED active Not Available Not Available No t Available ibuprofen 800 mg tablet TAKE 1 TABLET BY MOUTH EVERY 8 HOURS 01/11 completed Not Available Not Available Not Available valacyclovi r 1 gram tablet TK 1 T PO BID FOR 10 DAYS THEN TK 1 T PO QD 08/26 completed Not Available Not Available Not Available famotidine 40 mg tablet 01/27 completed Not Available Not Available Not Available prednisone 20 mg tablet 06/27 completed Not Available Not Available Not Available enalapril maleate 2.5 mg tablet 01/27 completed Not Available Not Available Not Available olanzapine 5 mg tablet TAKE 1 TABLET BY MOUTH AT BEDTIME 08/26 completed Not Available Not Available Not Available penicillin V potassium 500 mg tablet TAKE 1 TABLET BY MOUTH EVERY 8 HOURS FOR 7 DAYS 08/26 completed Not Available Not Available Not Available clopidogrel 75 mg tablet one tab po q d 2024 active Not Available Not Available Not Avai lable amlodipine 5 mg tablet TAKE 1 TABLET BY MOUTH DAILY 01/11 completed Not Available Not Available Not Available sulfamethox azole 800 mg-trimetho prim 160 mg tablet TAKE 1 TABLET BY MOUTH EVERY 12 HOURS FOR 7 DAYS 08/26 completed Not Available Not Available Not Available peg-electro lyte solution 420 gram oral solution USE DIRECTED PER OFFICE 06/27 completed Not Available Not Available Not Available aspirin 81 mg tablet,jerod yed release one tab po q d 2024 active Not Available Not Available Not Avai lable tramadol 50 mg tablet 01/27 completed Not Available Not Available Not Available acetaminoph en 500 mg tablet TAKE 2 TABLETS BY MOUTH EVERY 6 HOURS NEEDED FOR PAIN/FEVE R active Not Available Not Available No t Available amoxicillin 500 mg tablet TAKE 1 TABLET BY MOUTH EVERY 8 HOURS 01/11 completed Not Available Not Available Not Available sodium chloride 0.9 % irrigation solution USE 500 MLS BY IRRIGATIO N ROUTE ONCE FOR 1 DOSE 09/26 completed Not Available Not Available Not Available polymyxin B sulfate 10,000 unit-trimet hoprim 1 mg/mL eye drops 01/27 completed Not Available Not Available Not Available nicotine 21 mg/24 hr daily transdermal patch 01/27 completed Not Available Not Available Not Available gabapentin 300 mg capsule Take 1 capsule 3 times a day by oral route. 08/26 completed Not Available Not Available Not Available hydrochloro thiazide 25 mg tablet Take 1 tablet every day by oral route for 90 days. 01/27 completed Not Available Not Available Not Available furosemide 20 mg tablet one tab po q d 2024 active Not Available Not Available Not Avai lable Viagra 100 mg tablet Take 0.5 tablets every other day by oral route as needed for 30 days. 06/27 completed Not Available Not Available Not Available albuterol sulfate HFA 90 mcg/actuati on aerosol inhaler two puffs qid prn 2024 active Not Available Not Available Not Avai lable fluticasone propionate 50 mcg/actuati on nasal spray,suspe nsion INSTILL 1 PUFF IN EACH NOSTRIL TWICE DAILY active Not Available Not Available No t Available clotrimazol e 1 % topical cream APPLY TOPICALLY TO THE AFFECTED AREA TWICE DAILY FOR 2 WEEKS 01/11 completed Not Available Not Available Not Available naproxen 500 mg tablet TAKE 1 TABLET BY MOUTH TWICE DAILY 09/26 completed Not Available Not Available Not Available amoxicillin 875 mg-potassiu m clavulanate 125 mg tablet TAKE 1 TABLET BY MOUTH TWICE DAILY WITH FOOD FOR 7 DAYS 09/26 completed Not Available Not Available Not Available oxycodone 5 mg tablet TAKE 1 TABLET BY MOUTH EVERY 4 HOURS NEEDED 08/26 completed Not Available Not Available Not Available neomycin 3.5 mg/g-polymy macey B 10,000 unit/g-dexa meth 0.1 % eye oint 01/27 completed Not Available Not Available Not Available gauze bandage 4 X 4 USE 1 PAD TWICE DAILY 09/26 completed Not Available Not Available Not Available rosuvastati n 20 mg tablet one tab po q d 2024 active Not Available Not Available Not Avai lable metoprolol tartrate 25 mg tablet one tab po bid 2024 active Not Available Not Available Not Avai lable senna 8.6 mg capsule Take 2 capsules every day by oral route. 08/26 completed Not Available Not Available Not Available nitrofurant oin monohydrate /macrocryst als 100 mg capsule Take 1 capsule every 12 hours by oral route for 5 days. 07/12 completed Not Available Not Available Not Available Vitals Date Recorded Body height Body mass index (BMI) Body weight Body temperature Heart rate Oxygen saturation Oxygen saturation in Arterial blood by Pulse oximetry Systolic blood pressure Diastolic blood pressure Provider Name and Address Organization Details Last Updated DateTime 2 173.99 cm 23.7 kg/m2 09343.5 9 g 98.4 [degF] 72 /min 99 % 99 % 140 mm[Hg] 72 mm[Hg] Mary Mendez [place] - [facility] 2 14:11:16 Date Recorded Body height Body mass index (BMI) Body weight Heart rate Oxygen saturation Oxygen saturation in Arterial blood by Pulse oximetry Systolic blood pressure Diastolic blood pressure Provider Name and Address Organization Details Last Updated DateTime 3 173.99 cm 23.4 kg/m2 78107.4 1 g 83 /min 98 % 98 % 148 mm[Hg] 86 mm[Hg] Marixa Prado MA [place] - [facility] 3 16:35:32 Date Recorded Body height Respiratory rate Body temperature Body mass index (BMI) Body weight Oxygen saturation Oxygen saturation in Arterial blood by Pulse oximetry Heart rate Systolic blood pressure Diastolic blood pressure Provider Name and Address Organization Details Last Updated DateTime 4 173.99 cm 18 /min 98.1 [degF] 23.2 kg/m2 67243.8 2 g 98 % 98 % 83 /min 120 mm[Hg] 70 mm[Hg] Kylie Cm MA [facility] 4 15:09:04 Date Recorded Body height Provider Name an d Address Organization Details Last Updated DateTime 01/12/2024 173.99 cm Kylie Cm MA [facility] 01/12/2024 14:46:53 Date Recorded Body mass index (BMI) Body weight Oxygen saturation Oxygen saturation in Arterial blood by Pulse oximetry Heart rate Body temperature Systolic blood pressure Provider Name and Address Organization Details Last Updated DateTime 4 22.1 kg/m2 09618.2 2 g 99 % 99 % 70 /min 97.8 [degF] 122 mm[Hg] Tameka Pradhan LPN [facility] 4 15:04:25 Date Recorded Body height Body mass index (BMI) Body weight Oxygen saturation Oxygen saturation in Arterial blood by Pulse oximetry Heart rate Systolic blood pressure Diastolic blood pressure Provider Name and Address Organization Details Last Updated DateTime 5 173.99 cm 23.7 kg/m2 79255.5 9 g 98 % 98 % 72 /min 122 mm[Hg] 78 mm[Hg] Kylielila CmMARIANA [facility] 5 16:18:10 Social History Question Answer Notes LastModified by Organizat ion Details LastModified Time Tobacco Smoking Status Current [facility]2014 10:52:34 Do You Have An Advance Directive? No Information not available 07/10/2014 What Is Your Level Of Alcohol Consumption? Moderate Beer Information not available 07/10/2014 What Is Your Level Of Caffeine Consumption? Occasional Information not available 07/10/2014 How Much Tobacco Do You Chew? None Information not available 07/10/2014 In The 14 Days Before Symptom Onset, Have You Had Close Contact With A Laboratory-confir med COVID-19 While That Case Was Ill? No Information not available 10/20/2019 In The 14 Days Before Symptom Onset, Have You Had Close Contact With A Person Who Is Under Investigation For COVID-19 While That Person Was Ill? No Information not available 10/20/2019 Have You Been To An Area Known To Be High Risk For COVID-19? Yes Information not available 07/12/2020 What Type Of Diet Are You Following? REGULAR Information not available 06/28/2019 Do You Or Have You Ever Used E-cigarettes Or Vape? 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 No Information not available 07/10/2014 Hard Of Hearing Or Deaf In One Or Both Ears? No Information not available 07/10/2014 Legally Blind In One Or Both Eyes? No Information no t available 07/10/2014 Marital Status Informatio n not available 07/10/2014 What Was The Date Of Your Most Recent Tobacco Screening? 05/01/2024 Information not available 05/01/2024 What Is Your Current Pack Years? 30ormorepacky ears Information not available 08/07/2020 Performs Monthly Self-breast Exam? No Information no t available 07/10/2014 Seat Belts Used Routinely Yes Information not available 07/10/2014 Smoke Alarm In Home Yes Information not available 07/10/2014 Do You Have Smoke And Carbon Monoxide Detectors In Your Home? Yes Information not available 07/12/2020 At What Age Did You Start Smoking Tobacco? 14 Information not available 06/28/2019 Are You Passively Exposed To Smoke? Yes Information no t available 07/12/2020 Do You Or Have You Ever Used Smokeless Tobacco? Never Used Smokeless Tobacco Information not available 10/20/2019 How Much Tobacco Do You Smoke? 0.5 PPD Information not available 08/21/2021 General Stress Level High Information not available 06/28/2019 Do You Use Any Illicit Or Recreational Drugs? Yes Marijuana Information not available 10/28/2021 Do You Use Sunscreen Routinely? No Information not available 07/10/2014 Has Tobacco Cessation Counseling Been Provided? Yes Information not available 06/18/2021 On What Date Was Tobacco Cessation Counseling Provided? 05/01/2024 Information not available 05/01/2024 How Many Years Have You Smoked Tobacco? 40 Information not available 09/25/2016 Do You Or Have You Ever Used Any Other Forms Of Tobacco Or Nicotine? No Information not available 08/07/2020 Sex: Unknown Functional Status Question Answer Note LastModified by Organization D etails LastModified Time What is your exercise level? None Information not available 10/04/2019 Mental Status None recorded. Family History Relationship Description Onset Age of this Age Resolved Age Notes LastModified by Organization Details LastModified Time Mother Hypertensive disorder asavala Not available 2014 10:52:34 Mother Kidney disease asavala Not available 2014 10:52:34 Medical History Condition Response Hepatitis Y Acid Reflux (GERD) Y High Blood Pressure Y Kidney or Bladder Problems Y Immunizations Vaccine Type Date Status Note Provider Nam e and Address Organization Details Recorded Time COVID-19, mRNA, LNP-S, PF, 30 mcg/0.3 mL dose 1 completed MARIANA Rae, [place] - [facility] 08/21/2021 16:27:22 COVID-19, mRNA, LNP-S, PF, 30 mcg/0.3 mL dose 2 completed MARIANA Rae, [place] [facility] 08/21/2021 16:27:51 Influenza, split virus, quadrivalent, preservative 7 completed Not Available [facility] 04/01/2019 02:39:53 Tdap 5 completed Not Available [facility] 04/01/2019 02:48:28 Past Encounters Encounter ID Performer Location Encounter Start Date Encounter Closed Date Diagnosis/Indication Diagnosis SNOMED-CT Code Diagnosis ICD10 Code Diagnosis Note [id number] June MARIANA Stark (Adult Med) [address] [place] [address] [phone] 07/10/2014 10:27:53 07/10/2014 11:47:14 General examination of patient [id number] 49 y/o WM who was last seen in this office by Dr. Ayers ? (There is no old chart available for me to review), he was incarcerat ed recently and diagnosed with HTN. Benign hypertension 11051682 Non compliant with HCTZ 25, recheck when compliant Chronic low back pain 501081863 Previous back surgery, he now has recurrence of left lower leg pain Injury of head 00218560 Chronic hepatitis C 964637609 He completed treatment while incarcerat ed Screening for cancer 19520372 Tobacco user 599410837 C essation was discussed, he needs a CXR [id number] MD Arabella Tee (Adult Med) [address] [place] [address] [phone] 09/25/2016 16:13:20 09/28/2016 09:06:59 Adult health examination 884168056 Z00.01 Coronary arteriosclerosis in [place] artery 5023142848 107 I25.10 RCA Stent 2014 Screening for malignant neoplasm of colon 915573200 Z12.11 Screening for malignant neoplasm of prostate 537503730 Z12.5 Muscle pain 83639025 M79 .1 Chronic hepatitis C 1283 83861 B18.2 He completed treatment while incarcerat ed Nicotine dependence 5629 4008 Z87.891 Cessation was discussed Esophageal dysphagia 408 17555 R13.19 Excessive sweating 08382 005 R61 Unexplaine d Essential hypertension 62265363 I10 [id number] Tyler Leal MD [facility] (Adult Med) [address] [place] [address] [phone] 01/27/2017 15:29:03 01/27/2017 16:27:37 Administration of influenza vaccine 86814714 Z23 Chronic anemia 978687585 D64.9 Unexplaine d Burping 262698482 R14.2 Breath sme lls unpleasant 21446574 R19.6 Diabetes m ellitus screening 040187094 Z13.1 Dysphagia 94668195 R13.1 0 Laboratory test result abnormal 982378300 R89.9 Meds? Impotence 295896475 N52. 9 Viagra PRN, side effect were discussed Benign ess ential hypertension 4909069 I10 He missed all his medication s today, he should be compliant with all of them. Screening for malignant neoplasm of colon 859312029 Z12.11 He needs an EGD and a colonoscop y Chronic hepatitis C 1283 45921 B18.2 He thinks that he completed treatment while incarcerat ed, however I am not aware of a treatment that involves only two doses. 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 Take 1-4 hours before sexual activity. May increase to a maximum dose of 100 mg once daily if there is incomplete response. Stress management , limit alcohol, smoking cessation. Pain in le ft lower limb 963691977 M79.605 Chronic. Normal NABIL 02/2019. Elevated CK levels in the past, statin discontinu ed at that time. Will recheck. Advised leg elevation when resting, compressio n stockings, and avoid prolonged standing. Adult heal th examination 572154537 Z00.00 Coronary arteriosclerosis in [place] artery 4808534267 107 I25.10 RCA stent 2014. Follows with [facility] (Dr. Haney). Benign ess ential hypertension 6151559 I10 Managed by cardiology . Advised low salt diet, daily exercise, and smoking cessation. Nicotine dependence 5629 4008 F17.200 Complete cessation encouraged . Osteoarthr itis of wrist 959122030 M19.032 Went to urgent care in April and was given oral steriods. Mild improvemen t. XR with chronic synovitis and OA. Will start Naproxen. Strengthen ing exercises. 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 Patient states he is not fully committed to quitting at this time. Patient advised we are happy to provide resources and support to help him quit. Will reassess readiness to quit at RTC. Paresthesi a of lower extremity 398909033 R20.2 Chronic. H/o of back surgery (?discecto my). F/u labs. Referral to neuro. Chronic ki dney disease stage 3 883661774 N18.3 vs LEESA. Last CMP eGFR of 44, normal kidney function 02/2019. Renal US 02/2019 unremarkab le. Repeat CMP today. Advised to stop all NSAIDs. Patient will return with urine sample for UA when he is able to urinate. Referral to nephrology . Creatine k inase level above reference range 772683658 R74.8 In the context of muscle pain. Labs from 09-22-19 CK was 479. Repeat CK reflex. Pain in le ft lower limb 387087029 M79.605 Chronic. Normal NABIL 02/2019. Elevated CK at last visit, will recheck. Muscle weakness 45532491 M62.81 Left upper and lower extremity. Patient reported improvemen t in upper extremity strength. Strength 5/5 LUE, 3/5 LLE on exam. R/o rheum disease. Referral to neuro for further evaluation . Anemia 063914541 D64.9 Chronic, normocytic . Lab results on 09-22-19 Hgb 11.6, Hematocrit 34.7. F/u labs. Referral previously made for colonoscop y. Alcohol dependence 27564 003 F10.20 Pt reports long h/o alcohol use and has been in and out of rehab multiple times. He reports drinking about 4-5 beers per night. He denies withdrawal symptoms. He declines rehab referral and does not believe his drinking is a problem. 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 ER precaution s discussed. F/u B12 and folate. Reassess at RTC. [id number] CHRISTINA RIVERA (MENTALLY RETARDED TEACHER) [address] [place] [address] [phone] 10/20/2019 11:38:16 11/06/2019 16:49:36 Acute urinary tract infection 553635737 N39.0 Mild irritative voiding symptoms and WBC on complete UA from 10/11, will treat empiricall y. Continue to increase water intake. RTC if symptoms do not improve. Serum crea tinine above reference range 874552057 R79.89 Minor lab discrepanc y - CMP and BMP both performed on 10/11. Cr 1.24-1.29, eGFR 62-65. Improvemen t from labs 09/21 labs where Cr 1.69 and eGFR 44. LEESA vs CKD. Pt has appt scheduled with nephrologi for further evaluation and management . Chronic anemia 939039315 D64.9 Unexplaine d. Chronic, normocytic . Lab results on 10-12-19 Hgb 11.8, Hematocrit 34.6. Iron studies, B12, and folate wnl. Negative inflammato ry markers. ?anemia of chronic disease. Referral previously made for colonoscop y. F/u labs and referral to hematology . [id number] John Montano MD [facility] ([facility]) [address] [place] [address] [phone] 01/09/2020 14:39:42 01/10/2020 07:40:46 Chronic kidney disease stage 3 355016750 N18.9 Has a history of elevated creatinine , evaluation as per ordersRisk factors are IVDA (FSGS), hep C (glomerulo nephritis) and HTN (nephroscl erosis) History of hepatitis C 4871739427 9101 Z86.19 Seems to ahve had an inadequate treatment of hepatitis C, recommend hepatology evaluation Essential hypertension 70237568 I10 Maintain Rx, is on an ROMINA-I Orchitis a nd epididymitis 024145024 N45.3 Stop naproxen, take APAP for painBactri m 1 BID x 10 daysNeeds urological evaluation for recurrence [id number] CHRISTINA RIVERA (MENTALLY RETARDED TEACHER) [address] [place] [address] [phone] 01/12/2020 10:32:45 01/15/2020 19:55:37 Genital herpes simplex 21125419 A60.9 Pt states he has had herpes for 25+ years, but has not had an outbreak in about 15 years. He describes painful lesions on his scrotum and penis that are starting to blister and rupture. He has taken Valtrex in the past and is wanting suppressiv e therapy as well. Start Valtrex 1g BID x 10 days for active outbreak, followed by 1g qd for suppressio n. Abstinence until complete resolution of lesions. RTC if symptoms do not improve. Venereal d isease screening 860860796 Z11.3 Dysuria 47173583 R30.9 Will culture urine. Pt is agreeable to coming to clinic to drop off a urine sample. Orchitis a nd epididymitis 098780741 N45.3 Pt seen by nephrology yesterday and diagnosed w/ orchitis/e pididymiti s after physical exam noting red/swolle n scrotum. Continue Bactrim as prescribed by nephrology . [id number] John Montano MD [facility] ([facility]) [address] [place] [address] 12/10/2020 11:59:19 12/13/2020 06:38:14 Chronic kidney disease stage 3 404450774 N18.9 Better numbers currently but based on prior, still suspected to have CKDCombina tion factors causing renal dysfunctio n , IVDA, hep C, NSAID use..NO interventi ons renal davalos indicated, avoid NSAID'sCan follow yearly History of hepatitis C 8045537416 9101 Z86.19 Seems to have had an inadequate treatment of hepatitis C, recommend hepatology evaluation Essential hypertension 65797208 I10 Maintain Rx, is on an ROMINA-I Orchitis a nd epididymitis 399247828 N45.3 Not active currently, sometimes crowley on urination, but UA not helpful [id number] 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 Will order today. Chronic ki dney disease stage 3 [id number] N18.30 Following with nephrolognohemi escoto at [facility], patient does not have transporta tion to appointmen t. Pt unaware of med care, will provide patient with free transporta tion informatio n today when he comes to the clinic for bloodwork. Essential hypertension 55890210 I10 Is on ACEi, continue as prescribed . Follows with cardiology . [id number] CHRISTINA [facility]IVERA [facility] (MENTALLY RETARDED TEACHER) [address] [place] [address] [phone] 0 07/12/2020 15:02:03 07/15/2020 08:22:40 Pain of left shoulder joint [id number] 8625301 M25.512 Patient heard a pop to his left shoulder upon lifting a sheet of metal yesterday and now reports left shoulder pain with weakness and decreased ROM secondary to pain. Pain increases with neck flexion. Cannot raise arm above head. No prior shoulder injuries or surgery. Suspect rotator cuff injury. Ordered left shoulder XR for further evaluation , will likely need MRI. Provided orthopedic referral. Advised him to take ibuprofen 800 mg TID as needed for pain and encouraged him to increase ROM as tolerated to avoid frozen shoulder. RTC if pain worsens. Cubital tu nnel syndrome 74217565 G56.22 Patient developed left medial forearm numbness from his medial elbow down into fourth and fifth digits upon waking x 1 month. He denies relief with straighten ing the elbow. No recent trauma or injury precipitat ing the numbness, but works in [employer] and reports repetitive hand/elbow movements. Negative cardiac work-up. Likely cubital tunnel syndrome. Provided orthopedic referral as noted above. Ordered cubital tunnel brace. Neck pain 21720755 M54.2 Reports increased pain from left lateral neck down to left shoulder with neck flexion (chin-to-c hest). Ordered cervical spine XR for further evaluation . [id number] CHRISTINA RIVERA (MENTALLY RETARDED TEACHER) [address] [place] [address] [phone] 08/07/2020 15:04:59 08/10/2020 22:01:59 Prepatellar bursitis of right knee [id number] 43338 M70.41 Significan t right-side d prepatella r effusion. Patient will undergo plain radiograph y. Has upcoming appointmen t with orthopedis t for shoulder - recommende d consulting about knee also. Uric acid to evaluate possible gout. Ordered compressio n sleeve. Patient should practice protection , rest, ice, compressio n, and elevation. Benign ess ential hypertension 1738909 I10 Managed by cardiology , last appt 08/02. Advised low salt diet, daily exercise, and smoking cessation. Chronic ki dney disease stage 3 [id number] N18.[address] at [facility] Atrophy of muscle of left upper arm [id number] 56046 M62.522 Still has not followed up with neurology. Will need MRI. Pain of le ft shoulder joint [id number] 6808542 M25.512 Left shoulder pain with weakness and decreased ROM secondary to pain. Pain increases with neck flexion. Cannot raise arm above head. No prior shoulder injuries or surgery. L upper arm atrophy noted. He has XR scheduled today, will need MRI. Has upcoming appt with ortho. [id number] MD Arabella Clancy (Adult Med) [address] [place] [address] [phone] 0 06/18/2021 09:32:17 06/30/2021 10:20:33 Fracture of lumbar spine 453178242 S32.009D L1 inferior endplate fracture and left L1-L4 transverse process fractures. He has followed up with surgeon on June 24. Temporary course of oxycodone renewed per Dr. Copeland. Fracture o f multiple ribs 0680111 S22.42XD Acute mildly displaced left posterior ninth rib fracture, acute nondisplac ed left posterior 10th and 11th and 12th rib fractures. Smoker 14966651 F17.200 Current smoker of 1 pack per day, approx ~40 pack year hx. Patient states he is not fully committed to quitting at this time. Needs LDCT after acute fractures addressed. Pulmonary emphysema 8743 3001 J43.9 Has Proair to use prn. Will need PFTs after rib fractures healed. Tachycardia 4245374 R00. 0 EKG inpatient wnl. Follows with cardiology , next appointmen t scheduled June 27. Chronic ki dney disease stage 3 [id number] N18.30 Following with nephrology , Dr Montano. Cervical radiculopathy 67870291 M54.12 Present x years, prior to trauma. Associated with atrophy of left upper arm. Had MRI of shoulder, insurance would not cover MRI of neck. Referral back to neurology, stressed the importance of following up. [id number] MD Arabella Clancy (Adult Med) [address] [place] [address] [phone] 08/21/2021 16:10:06 08/26/2021 14:00:25 Edema of right lower limb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
--- OUTSIDE RECORDS SUMMARY | 2024-05-06 14:10 | XMS_ITS ---
Author Organization [facility] Address [address] [facility] [address] [facility] [place] [address] Care Team Providers Care Cycle Manager Name Role Phone Jesus Alberto Jose Unavailable [phone] MEDICATIONS Medication SIG (Take, Route, Frequency, Duration) Notes Start Date End Date Status Allopurinol 100 MG 1 tablet Orally Once a day for 90 day(s) 10/22/2023 07/18/2024 Active Calcitriol 0.25 MCG 1 capsule Orally Onc e a day for 90 day(s) 10/22/2023 07/18/2024 Active Ergocalciferol 1.25 MG (76333 UT) 1 capsule Orally Once a week for 90 day(s) 10/22/2023 07/18/2024 Active Encounters Encounter Location Date Provider Diagnosis [facility] [address] [place] [address] 10/22/2023 I yuly Granda PLAN OF TREATMENT Medication Medication Name Sig Start Date Stop Date Notes Allopurinol 100 MG 1 tablet Orally Once a day for 90 day(s) 10/22/2023 07/18/2024 Calcitriol 0.25 MCG 1 capsule Orally Onc e a day for 90 day(s) 10/22/2023 07/18/2024 Ergocalciferol 1.25 MG (5000 0 UT) 1 capsule Orally Once a week for 90 day(s) 10/22/2023 07/18/2024 Progress Notes * Dawit MARINODOB:[birth year] (59 yo M)Acc No.[id number]:10/22/2023 Patient: Dawit MARINO :1965 Age:58 Y Sex:Male Address:[address] [place] [address] * Refills Start Allopurinol Tablet, 100 MG, Orally, 90 Tablet, 1 tablet, Once a day, 90 day(s), Refills=2 Start Calcitriol Capsule, 0.25 MCG, Orally, 90 Capsule, 1 capsule, Once a day, 90 day(s), Refills=2 Start Ergocalciferol Capsule, 1.25 MG (68619 UT), Orally, 13, 1 capsule, Once a week, 90 day(s), Refills=2 * * Date:
--- OUTSIDE RECORDS SUMMARY | 2024-05-06 14:10 | XMS_ITS | Clinical Summary ---
Author Organization [facility] Address [facility] [facility] [place] [address] Care Team Providers Care Computer Assistant Name Role Phone Karla Eddy PA-C Primary Care Provide r Source Comments [facility],non-owned Affiliates and Associated Physician Practices is amultiple site organization consisting of ambulatory clinics and hospital sitesin [place], [place], [place] and [place]. This disclosure is being madepursuant to the Care Everywhere program and may not contain all information available regarding this patient. Last updated 17.[facility] Endorphin Allergies No known active allergies Medications * [...] 06/11/2021 Immunizations Name Administration Dates Next Due Go Kin Packs primary monoval ent 12+ yr 0.3mL Purple [...] Mass Index 21.48 11/11/2022 2:19 PM CDT Plan of Treatment Health Maintenance Due Date Last Done Comments COLOGUARD (AGES 45-75) - COL ON CA SCREENING 1965 COLON MONITORING 1963 COLONOSCOPY - COLON CA SCREENING 1963 CT COLONOGRAPHY - COLON CA SCREENING 1965 Colorectal Cancer Screening 1965 FIT - COLON CA SCREENING 1963 FLEX SIG - COLON CA SCREENING 1963 HIV SCREENING 1978 HEPATITIS C SCREENING 02/08/1981 DTAP/TDAP/TD VACCINES (1 - Tdap) 1982 PNEUMOCOCCAL VACCINE 50+ (1 of 2 - PCV) 1982 PNEUMOCOCCAL VACCINE (1 of 2 - PCV) 1982 ZOSTER VACCINE (1 of 2) 2013 HEPATITIS B VACCINE (1 of 3 - Risk 3-dose series) 2023 Respiratory Syncytial Virus (RSV) Vaccine Pt: or over 60 yrs (1 - Risk 60-74 years 1-dose series) 2023 COVID-19 VACCINE (3 - 2023-2 5 season) 2023 03/25/2021, 03/04/2021 INFLUENZA VACCINE (#1) 2023 2, 01/27/2017 DEPRESSION SCREENING 03/15/2024 LIPID TESTING 10/16/2027 10/15/2022 HIB VACCINE Aged Out No longer eligi ble based on patient's age to complete this topic HPV VACCINE Aged Out No longer eligi ble based on patient's age to complete this topic MENINGOCOCCAL (Group B) VACCINE Aged Out No longer eligible b ased on patient's age to complete this topic MENINGOCOCCAL VACCINE Aged Out No donny ricardo eligible based on patient's age to complete this topic Procedures Procedure Name Priority Date/Time Associated Diagnosis Comments LIPID PROFILE Routine 10/15/2022 8:26 AM CDT from Last 3 Months or Most Recently Relevant to Health Maintenance Results * (ABNORMAL) LIPID PROFILE (10/15/2022 8:26 AM CDT) Cholesterol Total 140 <200 mg/dL 10/15/2022 9:02 AM [facility] HDL 35(L) >40 mg/dL 10/15/2022 9:02 AM [facility] Comment: ATP III Classification of HDL Cholesterol: <40 mg/dL: Considered a major risk factor. >60 mg/dL: Considered a negative risk factor. LDL Calculated 94 <100 mg/dL 10/15/2022 9:02 AM [facility] Comment: ATP III Classification of LDL Cholesterol: <100 mg/dL: Optimal 100 - 129 mg/dL: Near Optimal/Above Optimal 130 - 159 mg/dL: Borderline High 160 - 189 mg/dL: High >190 mg/dL: Very High Triglycerides 53 <150 mg/dL 10/15/2022 9:02 AM [facility] Comment: ATP III Classification of Triglycerides: <150 mg/dL: Normal 150 - 199 mg/dL: Borderline High 200 - 400 mg/dL: High >500 mg/dL: Very High Blood BLOOD SPECIMEN / Unknown Lab Venipuncture / Unknown 10/15/2022 8:26 AM CDT 10/15/2022 8:31 AM CDT Gee Real MD LAB - CHEMISTRY VITO Gillespie Organization Address City/State/ZIP Co de Phone Number [facility] [address] [place] [address], [facility] [phone] from Last 3 Months or Most Recently Relevant to Health Maintenance Advance Directives * Full Code (Latest Code Status on File) Date Activated Date Inactivated Comments 10/15/2022 1:42 AM 10/16/2022 9:13 AM * Full Code Date Activated Date Inactivated Comments 06/11/2021 9:53 AM 06/12/2021 7:12 PM * Full Code Date Activated Date Inactivated Comments 02/21/2009 4:28 PM 02/22/2009 5:44 AM Care Teams Computer Assistant Relationship Specialty Start Date End Date Karla Eddy PALatrellC [address] [place] [id number] PCP - General 07/17/20
--- OUTSIDE RECORDS SUMMARY | 2024-05-06 15:18 | XMS_ITS | Referral Summary ---
Author Organization [facility] Address [facility] [place] [address] Care Team Providers Care Swimming Pool Installer Name Role Phone Karla Eddy PA-C Primary Care Provide r Source Comments [facility],non-owned Affiliates and Associated Physician Practices is amultiple site organization consisting of ambulatory clinics and hospital sitesin [place], [place], [place] and [place]. This disclosure is being madepursuant to the Care Everywhere program and may not contain all information available regarding this patient. Last updated 17.[facility] [employer] Allergies No known active allergies Medications [...] 06/11/2021 Immunizations Name Administration Dates Next Due Tattoodo primary monoval ent 12+ yr 0.3mL Purple [...] (ABNORMAL) LIPID PROFILE (10/15/2022 8:26 AM CDT) [facility] Signature Cholesterol Total 140 <200 mg/dL 10/15/2022 9:02 AM CDT [facility] HDL 35(L) >40 mg/dL 10/15/2022 9:02 AM CDT [facility] Comment: ATP III Classification of HDL Cholesterol: <40 mg/dL: Considered a major risk factor. >60 mg/dL: Considered a negative risk factor. LDL Calculated 94 <100 mg/dL 10/15/2022 9:02 AM T [facility] Comment: ATP III Classification of LDL Cholesterol: <100 mg/dL: Optimal 100 - 129 mg/dL: Near Optimal/Above Optimal 130 - 159 mg/dL: Borderline High 160 - 189 mg/dL: High >190 mg/dL: Very High Triglycerides 53 <150 mg/dL 10/15/2022 9:02 AM CDT [facility] Comment: ATP III Classification of Triglycerides: <150 mg/dL: Normal 150 - 199 mg/dL: Borderline High 200 - 400 mg/dL: High >500 mg/dL: Very High Blood BLOOD SPECIMEN / Unknown Lab Venipuncture / Unknown 10/15/2022 8:26 AM CDT 10/15/2022 8:31 AM CDT Gee Real MD LAB - CHEMISTRY VITO Gillespie Organization Address City/State/[facility] Co de Phone Number [facility] [address] [place] [address], [facility] [phone] from Last 3 Months or Most Recently Relevant to Health Maintenance Advance Directives * Full Code (Latest Code Status on File) Date Activated Date Inactivated Comments 10/15/2022 1:42 AM 10/16/2022 9:13 AM * Full Code Date Activated Date Inactivated Comments 06/11/2021 9:53 AM 06/12/2021 7:12 PM * Full Code Date Activated Date Inactivated Comments 02/21/2009 4:28 PM 02/22/2009 5:44 AM Care Teams Swimming Pool Installer Relationship Specialty Start Date End Date Karla Eddy PA-C [address] [place] [phone] [facility] - General 07/17/20
--- OUTSIDE RECORDS SUMMARY | 2024-05-06 15:19 | XMS_ITS | CONTINUITY OF CARE DOCUMENT ---
Author Name karen jclenin Address Unknown Organization [facility] Address [address] [place] [address] Phone [phone] Care Team Providers Care Gaggerman Name Role Phone Medina COLE, Lexus Thomas Unavailable LUCHO GILES MD Unavailable Sima Renee MD Unavailable PROBLEMS Condition Status Date Provider Notes Shortness of breath active Sal Vail Family History Coronary Hear t Disease female < 65: active ? Lexus Haney MD Family History of Sudden Cardiac : active ? Lexus Haney MD CAD S/P 3X18MM INTEGRITY BMS TO RCA (12/16/2014) active Lexus Haney MD H/O Myocardial infarction, a cute, inferior wall active Lexus Haney MD Tobacco abuse active Lexus Haney MD Dyslipidemia active Lexus Haney MD HTN essential active Lexus Haney MD Leg pain, left active Lexus Haney MD Chest pain - precordial active Lexus napoles MD Angina with CAD active Lexus Haney MD Weakness - muscular active Lexus Haney MD Weight loss abnormal active Lexus sharp MD Edema - localized active Essence Coy Fatigue active Lexus Haney MD Carotid artery stenosis - bilateral active Lexus Haney MD Epistaxis active Lexus Haney MD Kidney Disease active Lexus Haney MD Arm pain, left active Lexus Haney MD Excessive falling active Lexus Dewey ENCOUNTERS Date Type Provider Location Encounter Diag nosis - In-person encounter Office Visit Lexus Haney MD [facility] - In-person encounter Office Visit Lexus Haney MD [facility] - In-person encounter Office Visit Lexus Haney MD [facility] - In-person encounter Office Visit Lexus Haney MD [facility] - In-person encounter Office Visit Lexus Haney MD [facility] Excessive falling - In-person encounter Office Visit Lexus Haney MD [facility] Arm pain, left - In-person encounter Office Visit Lexus Haney MD [facility] - In-person encounter Office Visit Lexus Haney MD [facility] Kidney Disease - In-person encounter Office Visit Lexus Haney MD [facility] - In-person encounter Office Visit Lexus Haney MD [facility] - In-person encounter Office Visit Lexus Haney MD [facility] - In-person encounter Office Visit Lexus Haney MD [facility] FatigueCarotid artery stenosis - bilateralEpistaxis - In-person encounter Office Visit Lexus Haney MD [facility] Edema - localized - In-person encounter Office Visit Lexus Haney MD [facility] - In-person encounter Office Visit Lexus Haney MD [facility] Chest pain - precordialAngina with CADWeakness - muscularWeight loss abnormal - In-person encounter Office Visit Lexus Haney MD [facility] - In-person encounter Office Visit Lexus Haney MD [facility] - In-person encounter Office Visit Lexus Haney MD [facility] Family History Coronary Heart Disease female < 65:Family History of Sudden Cardiac :CAD S/P 3X18MM INTEGRITY BMS TO RCA (12/16/2014)H/O Myocardial infarction, acute, inferior wallTobacco abuseDyslipidemiaHTN essentialLeg pain, left VITAL SIGNS Date Observation Value Provider Body Mass Index (Ratio) 23.75 kg/m2 Marlo Haney MD pulse rate 82 /min [facility] blood pressure, cuff size [facility], [facility][Hg] [facility] blood pressure, systolic 126 mm[Hg] [facility] oxygen saturation, oximetry 99 % [facility] respiratory rate E&M 12 /min [facility] weight E&M 156.2 [lb_av] [facility] height E&M 68 [in_i] [facility] Body Mass Index (Ratio) 23.41 kg/m2 Izzy ssa Puhse blood pressure, diastolic 87 mm[Hg] Li nkLogic blood pressure, systolic 171 mm[Hg] Darline kLogic blood pressure, cuff size regular Ja rret blood pressure, diastolic 87 mm[Hg] Ja rret blood pressure, systolic 171 mm[Hg] Jar ret pulse rate 104 /min Beto respiratory rate E&M 12 /min Beto oxygen saturation, oximetry 100 % Beto weight E&M 154 [lb_av] Beto y height E&M 68 [in_i] Beto Body Mass Index (Ratio) 23.57 kg/m2 Marlo Haney MD blood pressure, diastolic -1 mm[Hg] Yin salvadorLogjose blood pressure, systolic 125 mm[Hg] Darline Lira blood pressure, diastolic 71 mm[Hg] St julieta Adler blood pressure, systolic 125 mm[Hg] Eve Adler oxygen saturation, oximetry 96 % Michaela Adler pulse rate 82 /min Michaelarui Adler respiratory rate E&M 18 /min Michaela bray weight E&M 155 [lb_av] Michaelarui Adler height E&M 68 [in_i] Michaelarui Adler Body Mass Index (Ratio) 24.26 kg/m2 Marlo Haney MD blood pressure, diastolic 87 mm[Hg] Yin salvadorLogjose blood pressure, systolic 161 mm[Hg] Darline Hassanogjose blood pressure, cuff size large Ta brianna Van blood pressure, diastolic 87 mm[Hg] Ta brianna Van blood pressure, systolic 161 mm[Hg] Reed david Van respiratory rate E&M 16 /min Zohreh Van oxygen saturation, oximetry 98 % Zohreh Van pulse rate 95 /min Zohreh Van weight E&M 159.6 [lb_av] Zohreh Van height E&M 68 [in_i] Zohreh Van Body Mass Index (Ratio) 25.39 kg/m2 Marlo Haney MD blood pressure, diastolic 73 mm[Hg] Yin salvadorLogjose blood pressure, systolic 135 mm[Hg] Darline Hassanog blood pressure, diastolic 73 mm[Hg] Ashley Curtis blood pressure, systolic 135 mm[Hg] Blair Curtis blood pressure, cuff size regular Ashley Curtis weight E&M 167 [lb_av] Riana harvey height E&M 68 [in_i] Riana harvey Body Mass Index (Ratio) 26.00 kg/m2 Marlo Haney MD blood pressure, diastolic 80 mm[Hg] Yin salvadorLog blood pressure, systolic 162 mm[Hg] [facility], cuff size large Tr milton Jones blood pressure, diastolic 80 mm[Hg] Tr milton Jones blood pressure, systolic 162 mm[Hg] Try summer Jones oxygen saturation, oximetry 98 % Bianca Jones respiratory rate E&M 18 /min Bianca Jones pulse rate 87 /min [facility] Jones weight E&M 171 [lb_av] Bianca Jones height E&M 68 [in_i] Bianca Jones Body Mass Index (Ratio) 25.54 kg/m2 Marlo Haney MD blood pressure, diastolic 87 mm[Hg] Rh onvaleria Gao blood pressure, systolic 144 mm[Hg] Rho aaron Gao oxygen saturation, oximetry 98 % Nathalie Gao pulse rate 90 /min Nathalie Gao respiratory rate E&M 18 /min Nathalieaaron Gao blood pressure, cuff size regular Rh aileen Gao blood pressure, resting Yes Vargas Dai weight E&M 168 [lb_av] Nathalie Gao height E&M 68 [in_i] Nathalie Gao Body Mass Index (Ratio) 23.26 kg/m2 Marlo Haney MD pulse rate 83 /min Raeann Block blood pressure, diastolic 70 mm[Hg] Br ittany Block blood pressure, systolic 118 mm[Hg] Debbie ttany Block oxygen saturation, oximetry 99 % Raeann Block weight E&M 153 [lb_av] Raeann Block blood pressure, resting Yes [facility] E&M 16 /min [facility] Block height E&M 68 [in_i] [facility] Body Mass Index (Ratio) 23.11 kg/m2 Marlo Haney MD pulse rate 109 /min Elizabeth Ruizbel l oxygen saturation, oximetry 97 % Elizabeth Arroyo respiratory rate E&M 18 /min Elizabeth Arroyo blood pressure, cuff size regular Cy mindy Arroyo blood pressure, diastolic 70 mm[Hg] Rui Arroyo blood pressure, systolic 120 mm[Hg] Rhoda Arroyo weight E&M 152 [lb_av] Elizabeth Campbel l height E&M 68 [in_i] Elizabeth Campbel l Body Mass Index (Ratio) 23.11 kg/m2 Marlo Haney MD blood pressure, cuff size regular Cy mindy Arroyo blood pressure, diastolic 60 mm[Hg] Cy mindy Arroyo blood pressure, systolic 160 mm[Hg] Rhoda Arroyo oxygen saturation, oximetry 97 % Elizabeth Arroyo respiratory rate E&M 16 /min Elizabeth Arroyo pulse rate 78 /min Elizabeth Campbel l height E&M 68 [in_i] Elizabeth Page l weight E&M 152 [lb_av] Elizabeth moore Body Mass Index (Ratio) 23.87 kg/m2 Marlo Haney MD blood pressure, cuff size regular Cr ystal Yoni blood pressure, diastolic 90 mm[Hg] Cr ystal Yoni blood pressure, systolic 150 mm[Hg] Cry stal Yoni oxygen saturation, oximetry 98 % Zoe Vallejo respiratory rate E&M 17 /min Zoe Vallejo pulse rate 96 /min Zoe person weight E&M 157 [lb_av] Zoe Lock s height E&M 68 [in_i] Zoe Lock s Body Mass Index (Ratio) 24.02 kg/m2 Marlo Haney MD blood pressure, diastolic 90 mm[Hg] Da sandra Bobbi blood pressure, systolic 152 mm[Hg] Dac ia Bobbi oxygen saturation, oximetry 95 % Shruthi Bobbi respiratory rate E&M 18 /min Shruthi V oss pulse rate 76 /min Shruthi Bobbi weight E&M 158 [lb_av] Shruthi Bobbi height E&M 68 [in_i] Shruthi Bobbi Body Mass Index (Ratio) 24.02 kg/m2 Milena Coy blood pressure, diastolic 95 mm[Hg] Silvano Knowles blood pressure, systolic 160 mm[Hg] Haley Knowles oxygen saturation, oximetry 98 % Gita Knowles respiratory rate E&M 18 /min Nenita Knowles pulse rate 86 /min Gita trujillo weight E&M 158 [lb_av] Gita trujillo height E&M 68 [in_i] Gita trujillo Body Mass Index (Ratio) 22.90 kg/m2 Marlo Haney MD blood pressure, resting Yes Afsaneh Knowles blood pressure, diastolic 86 mm[Hg] Silvano Knowles blood pressure, systolic 147 mm[Hg] Haley Knowles oxygen saturation, oximetry 96 % Gita Knowles respiratory rate E&M 18 /min Nenita Knowles pulse rate 88 /min Gita trujillo weight E&M 150.6 [lb_av] Gita bradshaw height E&M 68 [in_i] Gita trujillo blood pressure, diastolic 90 mm[Hg] Ke rri Avtaruenenfrg blood pressure, systolic 140 mm[Hg] Ker ri Gruenenfmarijaer pulse rate 89 /min Jocelyne Gruenenfe lder oxygen saturation, oximetry 98 % Jocelyne Gruenenfmarijaer respiratory rate E&M 16 /min Jocelyne G yamilethenenfrg Body Mass Index (Ratio) 24.17 kg/m2 Viera i Gruenenfmarijaer weight E&M 159 [lb_av] Jocelyne Gruenenfe lder blood pressure, diastolic 80 mm[Hg] Ke rri Gruenenfelder blood pressure, systolic 120 mm[Hg] Ker ri Gruenenfelder pulse rate 98 /min Jocelyne Gruenenfe lder oxygen saturation, oximetry 97 % Jocelyne Gruenenfelder respiratory rate E&M 16 /min Jocelyne G ruenenfelder Body Mass Index (Ratio) 26.30 kg/m2 Viera i Gruenenfelder weight E&M 173 [lb_av] Jocelyne Gruenenfe lder blood pressure, diastolic 94 mm[Hg] Silvano Knowles blood pressure, systolic 160 mm[Hg] Haley Knowles pulse rate 85 /min Gita trujillo oxygen saturation, oximetry 98 % Gita Knowles respiratory rate E&M 16 /min Nenita Knowles Body Mass Index (Ratio) 27.73 kg/m2 Afsaneh Knowles weight E&M 182.4 [lb_av] Gita bradshaw blood pressure, diastolic 88 mm[Hg] Me justice Malagon blood pressure, systolic 149 mm[Hg] Nickie vieyra Malagon pulse rate 80 /min Ashlyn Malagon oxygen saturation, oximetry 98 % Ashlyn Malagon respiratory rate E&M 15 /min Ashlyn Malagon Body Mass Index (Ratio) 27.06 kg/m2 Izzy elder Malagon weight E&M 178 [lb_av] Ashlyn Malagon height E&M 68 [in_i] Ashlyn Malagon ALLERGIES No Known Drug Allergies RESULTS Date Observation Value Provider Reference Range Interpretation Location 2 lipoprotein, beta, serum, point, quantitative, calculated 107 mg/dL [facility] 0-99 High 2 HDL cholesterol, serum 40 mg/dL [facility] >39 2 triglyceride, serum, random 135 mg/dL [facility] 0-149 2 cholesterol, serum 171 mg/dL [facility] [phone]/05/2 2 basophil count, absolute 0.1 x10E3/uL [facility] 0.0-0.2 2 Eosinophil Absolute Count 0.3 X10E3/UL [facility] 0.0-0.4 2 monocyte count, blood, automated 1.2 X10E3/UL [facility] 0.1-0.9 High 2 lymphocyte count, blood, automated 3.3 X10E3/UL [facility] 0.7-3.1 High 2 Absolute Neutrophils 4.8 X10E3/UL [facility] 1.4-7.0 2 basophils as percent of blood leukocytes 1 % [facility] Not Estab. 2 eosinophils as percent of blood leukocytes 3 % [facility] Not Estab. 2 monocytes as percent of blood leukocytes 13 % [facility] Not Estab. 2 lymphocytes as percent of blood leukocytes 34 % [facility] Not Estab. 2 neutrophils as percent of blood leukocytes 48 % [facility] Not Estab. 2 platelet count 289 X10E3/UL [facility] [phone]/05/2 2 red blood cell distribution width 12.8 % [facility] 11.6-15.4 2 mean corpuscular hemoglobin concentration, RBC 33.7 G/DL [facility] 31.5-35.7 2 mean corpuscular hemoglobin, RBC 30.0 pg [facility] 26.6-33.0 2 mean corpuscular volume, RBC 89 fL [facility] 79-97 2 hematocrit, blood 37.7 % [facility] 37.5-51.0 2 hemoglobin, blood 12.7 g/dL [facility] 13.0-17.7 Low 2 erythrocyte (RBC) count 4.23 X10E6/UL [facility] 4.14-5.80 2 leukocyte count, blood 9.9 X10E3/UL [facility] 3.4-10.8 2 alanine aminotransferase (SGPT), serum 30 1/L [facility] 0-44 2 aspartate aminotransferase (SGOT), serum 33 1/L [facility] 0-40 2 alkaline phosphatase, serum 95 1/L [facility] 48-121 2 bilirubin, serum, total 0.2 mg/dL [facility] 0.0-1.2 2 albumin/globulin ratio, serum 1.1 [facility] 1.2-2.2 Low 2 globulin, serum 3.5 [facility] 1.5-4.5 2 albumin, serum 3.9 g/dL [facility] 3.8-4.9 2 protein, total, serum 7.4 g/dL [facility] 6.0-8.5 2 calcium, serum 9.0 mg/dL [facility] 8.7-10.2 2 carbon dioxide, venous blood 24 mmol/L [facility] 20-29 2 chloride, serum 104 mmol/L [facility] 96-106 2 potassium, serum 4.7 mmol/L [facility] 3.5-5.2 2 sodium, serum 140 mmol/L [facility] 142-847 3747/05/2 2 urea nitrogen/creatinine ratio, serum 13 [facility] 9-20 2 eGFR if 67 mL/min/{1 .73_m2} [facility] >59 2 eGFR if not 58 mL/min/{1 .73_m2} [facility] >59 Low 2 creatinine, serum 1.35 mg/dL [facility] 0.76-1.27 High 2 urea nitrogen, blood 17 mg/dL [facility] 6-24 2 blood glucose, random 90 mg/dL [facility] 65-99 6 B-type natriuretic peptide 35.9 pg/mL [facility] 0.0-100.0 6 alanine aminotransferase (SGPT), serum 32 1/L [facility] 0-44 6 aspartate aminotransferase (SGOT), serum 35 1/L [facility] 0-40 6 alkaline phosphatase, serum 75 1/L [facility] 39-117 6 bilirubin, serum, total 0.4 mg/dL [facility] 0.0-1.2 6 albumin/globulin ratio, serum 1.4 [facility] 1.2-2.2 6 globulin, serum 2.7 [facility] 1.5-4.5 6 albumin, serum 3.9 g/dL [facility] 3.5-5.5 6 protein, total, serum 6.6 g/dL [facility] 6.0-8.5 6 calcium, serum 8.8 mg/dL [facility] 8.7-10.2 6 carbon dioxide, venous blood 22 mmol/L [facility] 20-29 6 chloride, serum 105 mmol/L [facility] 96-106 6 potassium, serum 4.8 mmol/L [facility] 3.5-5.2 6 sodium, serum 139 mmol/L [facility] [phone]/12/0 6 urea nitrogen/creatinine ratio, serum 18 [facility] 9-20 6 eGFR if 78 mL/min/{1 .73_m2} [facility] >59 6 eGFR if not 67 mL/min/{1 .73_m2} [facility] >59 6 creatinine, serum 1.20 mg/dL [facility] 0.76-1.27 6 urea nitrogen, blood 21 mg/dL [facility] 6-24 6 blood glucose, random 93 mg/dL [facility] 65-99 HISTORY OF MEDICATION USE Medication Status Instructions Dates Provider Indications Com ments aspirin 81 mg tablet,delayed release (DR/EC) active TAKE 1 TABLET BY MOUTH EVERY DAY [facility] Crestor 5 mg tablet active TAKE 1 TABLET BY MOUTH EVERY EVENING OR AT BEDTIME DAILY Lexus Haney MD furosemide 20 mg tablet active TAKE 1 TABLET BY MOUTH DAILY [facility] phenazopyridine 100 mg tablet active 1 tablet by mouth as directed Katherine Roberts NP amlodipine 5 mg tablet active TAKE 1 TABLET BY MOUTH DAILY [facility] clopidogrel 75 mg tablet active TAKE 1 TABLET BY MOUTH EVERY DAY DIRECTED Idalmis Siegel metoprolol tartrate 25 mg tablet active TAKE 1 TABLET BY MOUTH TWICE DAILY [facility] clopidogrel 75 mg tablet completed TAKE 1 TABLET BY MOUTH EVERY DAY - Harriet Deng aspirin 81 mg tablet,delayed release (DR/EC) completed TAKE 1 TABLET BY MOUTH DAILY - Beto enalapril maleate 10 mg tablet active TAKE 1 TABLET BY MOUTH TWICE DAILY Lexus Haney MD aspirin 81 mg tablet,delayed release (DR/EC) completed TAKE 1 TABLET BY MOUTH ONCE DAILY - Jaylyn Suarez Norvasc 5 mg tablet completed TAKE 1 TABLET BY MOUTH DAILY - Lexus Haney MD furosemide 20 mg tablet completed TAKE 1 TABLET BY MOUTH DAILY - Joceline Wilkinson Lasix 20 mg tablet completed Take 1 tablet by mouth three times a week as [facility] furosemide 20 mg tablet completed Take 1 tablet by mouth three times a week as [facility] - [facility] furosemide 20 mg tablet completed Take 1 tablet by mouth three times a week as directed - Lavonshea Atkins Lasix 20 mg tablet completed Take 1 tablet by mouth three times a week as directed - Jelly Atangelina aspirin 81 mg tablet,delayed release (DR/EC) completed Take 1 tablet by mouth once a day - [facility] clopidogrel 75 mg tablet completed Take 1 tablet by mouth once a day as directed - [facility] LIPITOR 40 MG ORAL TABLET completed ONE TAB. DAILY - Gita Knowles enalapril maleate 10 mg tablet completed Take 1 tablet by mouth twice a day as directed - Jelly Andrews metoprolol tartrate 25 mg tablet completed Take 1 tablet by mouth twice a day - Lexus Haney MD SOCIAL HISTORY Date Observation Value Provider drug use, illicit, d rug of choice marijuana Lexus Haney MD drug use yes Lexus sharp MD alcohol use no Lexus sharp MD smoking/tobacco cess ation, patient education and counseling yes Lexus Haney MD number of years as a smoker 40 a Lexus Haney MD smoking, date started 1974 Piter Haney MD smoking history, tot al pack/day 1 Lexus Haney MD cigarette use yes Lexus barnett MD smoking status Current every day smoker S justice Haney MD smoking/tobacco cess ation, patient education and counseling yes Lexus Haney MD social history reviewed E&M revi ewed - no changes required Lexus Haney MD social history E&M Patient kay hsieh smokes every day. S moking History: P jyotsna currently smokes every day. P jyotsna has been counseled to quit. Lexus Haney MD social history reviewed E&M revi ewed - no changes required Katherine Roberts NP social history E&M Patient kay hsieh smokes every day. Smoking History: Michoacano goyal currently smokes every day. P jyotsna has been counseled to quit. Katherine Roberts NP drug use, illicit, d rug of choice marijuana Katherine Roberts NP drug use yes Katherine Roberts NP alcohol use no Katherine Roberts NP smoking/tobacco cess ation, patient education and counseling yes Michaela Adler number of years as a smoker 40 a Michaela Adler smoking, date started 1974 Michaela Adler smoking history, tot al pack/day 1 Michaela Adler cigarette use yes Michaela Vitor smoking status Current every day smoker S александр Vitor social history E&M Patient kay ntly smokes every day. Smoking History: P atient currently smokes every day. Lexus Haney MD social history reviewed E&M revi ewed - no changes required Lexus Haney MD number of years as a smoker 40 a Zohreh Alex smoking history, tot al pack/day 1 Zohreh Alex cigarette use yes Zohrehdavid Johnson smoking status Current every day smoker T miguel a Johnson social history reviewed E&M revi ewed - no changes required Lexus Haney MD social history E&M Patient kay hsieh smokes every day. Smoking History: P atderrell currently smokes every day. Lexus Haney MD social history reviewed E&M revi ewed - no changes required Lexus Haney MD smoking history, tot al pack/day 20 Bianca Jones cigarette use yes Bianca person smoking status Current every day smoker T derrek Jones smoking/tobacco cess ation, patient education and counseling yes Lexus Haney MD smoking, date started 1974 Piter Haney MD smoking history, tot al pack/day 1 Lexus Haney MD cigarette use yes Lexus barnett MD smoking status Current every day smoker S justice Haney MD social history reviewed E&M revi ewed - no changes required Lexus Haney MD social history E&M Patient kay hsieh smokes every day. S moking History: P atient currently smokes every day. P atient has been counseled to quit. Lexus Haney MD social history E&M Patient curre ntly smokes every day. Smoking History: P jyotsna currently smokes every day. P jyotsna has been counseled to quit. Lexus Haney MD social history reviewed E&M revi ewed - no changes required Lexus Haney MD smoking/tobacco cess ation, patient education and counseling yes Raeann Block smoking, date started 1974 Sarah bran Block smoking history, tot al pack/day 1 Raeann Block cigarette use yes Raeann Block smoking status Current every day smoker B rittany Block smoking/tobacco cess ation, patient education and counseling yes Elizabeth Cruz smoking, date started 1974 Jerry sharp Cruz smoking history, tot al pack/day 1 Elizabeth Cruz cigarette use yes Elizabeth Jan yusuf smoking status Current every day smoker Evelyne tony Arroyo social history E&M Patient stephaniee ntly smokes every day. Smoking History: P jyotsna currently smokes every day. Lexus Haney MD social history reviewed E&M revi ewed - no changes required Lexus Haney MD cigarette use yes Zoe Pritchett ms smoking status Current every day smoker Evelyne silviano Vallejo social history E&M Patient kay ntly smokes every day. Smoking History: P jyotsna currently smokes every day. P jyotsna has been counseled to quit. Lexus Haney MD social history reviewed E&M revi ewed - no changes required Lexus Haney MD smoking/tobacco cess ation, patient education and counseling yes Shruthi Bobbi alcohol use no Shruthi Bobbi smoking, date started 1974 Shruthi Bobbi smoking history, tot al pack/day 1 Shruthi Bobbi cigarette use yes Shruthi Bobbi smoking status Current every day smoker D acia Bobbi social history E&M Patient curre ntly smokes every day. Smoking History: Michoacano goyal currently smokes every day. Michoacano goyal has been counseled to quit. Lexus Haney MD social history reviewed E&M revi ewed - no changes required Lexus Haney MD smoking/tobacco cess ation, patient education and counseling yes Gita Knowles alcohol use no Gita trujillo smoking, date started 1974 Augusta Knowles smoking history, tot al pack/day 1 Gita Knowles cigarette use yes Gita hurton smoking status Current every day smoker Gladys cooleyLuis Eduardo Knowles number of grandchildren Lexus Haney MD social history reviewed E&M revi ewed - no changes required Lexus Haney MD social history E&M Patient kay hsieh smokes every day. Smoking History: Michoacano goyal currently smokes every day. P jyotsna has been counseled to quit. Lexus Haney MD smoking/tobacco cess ation, patient education and counseling yes Gita Knowles alcohol use no Gita trujillo smoking, date started 1974 Augusta Knowles smoking history, tot al pack/day 1 Gita Knowles cigarette use yes Gita bradshaw smoking status Current every day smoker Gladys Knowles social history reviewed E&M revi ewed - no changes required Lexus Haney MD smoking/tobacco cess ation, patient education and counseling yes Jocelyne Williamson alcohol use no Jocelyne jimenez smoking, date started 1975 Jocelyne Williamson smoking history, tot al pack/day 1 Jocelyne Williamson cigarette use yes Jocelyne diez smoking status Current every day smoker K kadeem Williasmon smoking/tobacco cess ation, patient education and counseling yes Lexus Haney MD social history reviewed E&M revi ewed - no changes required Lexus Haney MD alcohol use no Jocelyne Angel jimenez smoking status Current every day smoker Lit quan Clay smoking/tobacco cess ation, patient education and counseling yes Gita Knowles smoking, date started 1974 Augusta Knowles smoking history, tot al pack/day 1 Gita Knowles cigarette use yes Gita bradshaw smoking status current every day smoker Gladys Adamsenson social history E&M Patient kay hsieh smokes every day. Smoking History: P atderrell currently smokes every day. P atient has been counseled to quit. Lexus Haney MD social history reviewed E&M i ewed - no changes required Lexus Haney MD smoking, date started 1974 Brayden Malagon smoking history, tot al pack/day 1 Ashlyn Malagon cigarette use yes Ashlyn Malagon smoking status current every day smoker S justice Haeny MD smoking/tobacco cess ation, patient education and counseling yes Ashlyn Malagon FUNCTIONAL STATUS Date Observation Value Provider HRA, CV Assess/Plan, Angina (inactive) Management Plan continue current therapy Lexus Haney MD HRA, CV Assess/Plan, Angina (inactive) Management Plan continue current therapy Lexus Haney MD HRA, CV Assess/Plan, Angina (inactive) Management Plan continue current therapy Katherine Roberts NP HRA, CV Assess/Plan, Angina (inactive) Management Plan continue current therapy Lexus Haney MD HRA, CV Assess/Plan, Angina (inactive) Management Plan continue current therapy Lexus Haney MD HRA, CV Assess/Plan, Angina (inactive) Management Plan continue current therapy Lexus Haney MD HRA, CV Assess/Plan, Angina (inactive) Management Plan continue current therapy Lexus Haney MD HRA, CV Assess/Plan, Angina (inactive) Management Plan continue current therapy Mari Coy HRA, CV Assess/Plan, Angina (inactive) Management Plan continue current therapy Lexus Haney MD FAMILY HISTORY Family Member Condition Mother MO female <65 Full Sister Family History of [place] dden Cardiac : Full Sister Family History Coron billy Heart Disease female < 65: Mother Family History of Co ronary Artery Disease: INSURANCE PROVIDERS Payer name Policy type / Coverage type [place] [employer] [place] [employer] (2) Medicaid [id number] ADVANCE DIRECTIVES Name Date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 femoral, d istal femoral, popliteal, anterior tibial and posterior tibial. The MARINA is 1.00. - - C ONCLUSIONS: 1 . Normal arterial flow of the lower extremities bilaterally. Lexus Haney MD Cardiology: N egative stress in 01/2016. No further CP sxs. August 02, 2020 h ad lv dysnfunction in the past and will check echo Lexus Haney MD Cardiology: S ome improvement on Lasix. CUrrently does not urinate much on Lasix. Will check his bloodwork again. 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 August 02, 2020 r emains on diuretics check chem7 Lexus Haney MD Cardiology: B P today: 144/87 P rior BP: 118/70 (03/04/2020) Labs Reviewed: C reat: 1.20 (02/17/2019) His updated medication list for this problem includes: Furosemide 20 Mg Tabs (Furosemide) ..... Take 1 tablet by mouth on wednesday, wednesday, and wednesday Lasix 20 Mg Oral Tablet (Furosemide) ..... One tab wednesday, wednesday, wednesday Aspirin 81mg Ec Low Dose D/f Tabs (Aspirin) ..... Take 1 tablet by mouth daily Enalapril 10mg Tablets (Enalapril maleate) ..... Take 1 tablet by mouth twice daily Metoprolol Tartrate 25mg Tablets (Metoprolol tartrate) ..... Take 1/2 tablet by mouth twice daily August 02, 2020 B P borderline elvated may be related to CKD and will avoid increasing other metrx Lexus Haney MD Cardiology: S ees Dr Montano. May benefit from switching his diuretics. Having too much diuretic may only provide limited benefit of his edena Right kidney measures 11 x 4.6 x 3.9 cm, has normal echotexture with no hydronephrosis mass-effect or c alculus formation. L eft kidney measures 10.6 x 4.7 x 4.2 cm normal texture without hydronephrasis mass-effect or calculus f ormation. The bladder appears to be normal I mpression: Normal study R enal Doppler F INDINGS: R ight Kidney: Right renal artery velocities are mildly elevated. Right kidney size is 10.74 cm. L eft Kidney: Left kidney size is 10.55 cm. - - C ONCLUSIONS: 1 . Mildly elevated velocities seen in the right proximal renal artery. 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 Normal left ventricular systolic function. Normal left ventricular size. Mild concentric left ventricular hypertrophy. There is E to A wave reversal consistent with impaired LV relaxation. E/E': 8.4. Left ventricular ejection fraction is measured at 50 %. 2 . Normal right ventricular size. Normal right ventricular systolic function. 3 . The right atrium is normal in size. Chiari network visualized in right atrium (normal variant). 4 . There is trace physiologic mitral valve regurgitation. 5 . There is mild tricuspid regurgitation. IVC is dilated with normal respiratory response, consistent with mildly elevated right a trial pressures. 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 CUrrently does not urinate much on Lasix. Will check his bloodwork again. 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 Lexus Haney MD Cardiology:FINDINGS: R ight Lower Extremity: Triphasic waveforms are seen in the common femoral, profunda femoris, proximal femoral, mid femoral, d istal femoral, popliteal, anterior tibial and posterior tibial. The MARINA is 1.00. L eft Lower Extremity: Triphasic waveforms are seen in the common femoral, profunda femoris, proximal femoral, mid femoral, d istal femoral, popliteal, anterior tibial and posterior tibial. The MARINA is 1.00. - - C ONCLUSIONS: 1 . Normal arterial flow of the lower extremities bilaterally. Lexus Haney MD Cardiology: C ontinues cessation recommended. 1 ppd Lexus Haney MD Cardiology:Sees Dr Zuleima moraes. May benefit from switching his diuretics. Having too much diuretic may only provide limited benefit of his edena Right kidney measures 11 x 4.6 x 3.9 cm, has normal echotexture with no hydronephrosis mass-effect or c alculus formation. L eft kidney measures 10.6 x 4.7 x 4.2 cm normal texture without hydronephrasis mass-effect or calculus f ormation. The bladder appears to be normal I mpression: Normal study R enal Doppler F INDINGS: R ight Kidney: Right renal artery velocities are mildly elevated. Right kidney size is 10.74 cm. Left Kidney: Left kidney size is 10.55 cm. - - C ONCLUSIONS: 1 . Mildly elevated velocities seen in the right proximal renal artery. Lexus Haney MD Cardiology follow up : evelyne mari marina. Hasn't had one done recently IMPRESSION: 1 . 2-vessel runoff to both feet bilaterally. 2 . Likelihood of small vessel disease noted secondary to extensive smoking history. 3 . Consideration towards the utilization of Pletal or Zontivity in addition to aspirin for his anti-platelet e ffect. If he has reduced smoking and try some anti-platelet activity and walking program he might b enefit some with his lower extremity claudication symptoms. 4 . Manual compression was used for hemostasis. The patient tolerated the procedure well Lexus Haney MD Cardiology follow up :Will increase enalapril to 10 mg BID. Continue with BB. At 12.5 mg BID as he is currently taking. H is updated medication list for this problem includes: Aspirin Adult Low Dose 81 Mg Oral Tablet Delayed Release (Aspirin) ..... One tab by mouth daily Enalapril Maleate 5 Mg Oral Tablet (Enalapril maleate) ..... One tab. twice daily Metoprolol Tartrate 25 Mg Oral Tablet (Metoprolol tartrate) ..... One half tab. twice daily Lexus Haney MD Cardiology follow up :Some improvement on Lasix. CUrrently does not urinate much on Lasix. Will check his bloodwork again. Lexus Haney MD Cardiology:Stress 20 16 1 . Myocardial scintigraphy is normal without evidence for previous myocardial infarction or reversible ischemia. 2 . Normal left ventricular size and function with a calculated ejection fraction of 49%. 3 . Normal Yunior protocol exercise tolerance test. H aving recurrent CP, needs to have repeat stress. Lexus Haney MD Cardiology:Continues cessation r ecommended. Lexus Haney MD Cardiology: S tart Lasix 20mg every other day. Check echo to amke sure LV function hasn't dropped. Was 50% in 01/2016. Lexus Haney MD Cardiology: H is updated medication list for this problem includes: Aspirin Adult Low Dose 81 Mg Oral Tablet Delayed Release (Aspirin) ..... One tab by mouth daily Enalapril Maleate 5 Mg Oral Tablet (Enalapril maleate) ..... One tab. twice daily Metoprolol Tartrate 25 Mg Oral Tablet (Metoprolol tartrate) ..... One half tab. twice daily Lexus Haney MD Cardiology follow up :known hx of cad and mi 1 . Successful PTCA stenting with thrombectomy and angioplasty of a high-grade 100% TI MO 0 flow, R CA reduced to 0% residual with implantation of one bare metal stent, 3.0 x 18 Integrity. 2 . Ventricular fibrillation arrest x2 requiring defibrillation. 3 . Temporary pacemaker wire removed. Lexus Haney MD Cardiology follow up:check pfts Lexus Haney MD Cardiology follow up :check marina IMPRESSION: 1 . 2-vessel runoff to both feet bilaterally. 2 . Likelihood of small vessel disease noted secondary to extensive smoking history. 3 . Consideration towards the utilization of Pletal or Zontivity in addition to aspirin for his anti-platelet e ffect. If he has reduced smoking and try some anti-platelet activity and walking program he might b enefit some with his lower extremity claudication symptoms. 4 . Manual compression was used for hemostasis. The patient tolerated the procedure well Lexus Haney MD Cardiology follow up : H is updated medication list for this problem includes: Aspirin Adult Low Dose 81 Mg Oral Tablet Delayed Release (Aspirin) ..... One tab by mouth daily Enalapril Maleate 5 Mg Oral Tablet (Enalapril maleate) ..... One tab. twice daily Metoprolol Tartrate 25 Mg Oral Tablet (Metoprolol tartrate) ..... One half tab. 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 Mari Coy Cardiology:Reduction recommended and ultimately cessation Mari Coy Cardiology:Hasn't ta thom any meds. BP is elevated. H is updated medication list for this problem includes: Aspirin 325 Mg Oral Tablet (Aspirin) ..... 2 tabs once daily Enalapril Maleate 5 Mg Oral Tablet (Enalapril maleate) ..... One tab. twice daily Metoprolol Tartrate 25 Mg Oral Tablet (Metoprolol tartrate) ..... One half tab. twice daily Lexus Haney MD Cardiology:Start Las ix 20mg every other day. Check echo to amke sure LV function hasn't dropped. Was 50% in 01/2016. Lexus Haney MD Cardiology:Negative stress in 01/2016. No further CP sxs. Lexus Haney MD Cardiology:Off of st atin. Unclear ereason why. He thinks it may have been due to hi bloodwork T he following medications were removed from the medication list: Lipitor 40 Mg Tabs (Atorvastatin calcium) ..... One tab. daily Lexus Haney MD Cardiology:Conclusio ns: 1 . There is hypokinesis in the : basal inferolateral wall, basal anterolateral wall and mid anterolateral w all. Left ventricular systolic function is at the lower limits of normal. Normal left ventricular size. T here is borderline left ventricular hypertrophy. There is E to A wave reversal consistent with impaired L V relaxation. Normal E/E` 5.3. Left ventricular ejection fraction is estimated at 50 %. 2 . Normal right ventricular size. Normal right ventricular systolic function. 3 . No significant valvular abnormalities. Lexus Haney MD Cardiology Lexus Haney MD Cardiology:Check for claudicatio n sx with MARINA. Lexus Haney MD Cardiology:Markedly improved down to 8 cig daily from 2ppd. Lexus Hanye MD Cardiology Follow up:left hand w kamaljit Lexus Haney MD Cardiology Follow up:check stres s for cp and isr Lexus Haney MD Cardiology Follow up Lexus small MD Cardiology Follow up Lexus small MD Cardiology Follow up Lexus small MD Cardiology Follow up :NO BLEEDING ISSUES ON PLAVIX WILL REMAINON IT SINCE HE HAD THROMBOTIC OCCLUSION OF RCA Lexus Haney MD Cardiology Follow up : H is updated medication list for this problem includes: Lipitor 40 Mg Tabs (Atorvastatin calcium) ..... One tab. daily Lexus Haney MD Cardiology Follow up : H is updated medication list for this problem includes: Aspirin 325 Mg Tabs (Aspirin) ..... One tab daily Enalapril Maleate 5 Mg Tabs (Enalapril maleate) ..... One tab. twice daily Metoprolol Tartrate 25 Mg Tabs (Metoprolol tartrate) ..... One half tab. twice daily Orders: S NOMED-CT: [id number] Current Medications Documented (SCT-[id number]) E KG ([id number]) Lexus Haney MD Cardiology: H is updated medication list for this problem includes: Lipitor 40 Mg Tabs (Atorvastatin calcium) ..... One tab. daily Joceline Lagunas NP Cardiology:Patient d id not take his meds today. H is updated medication list for this problem includes: Aspirin 325 Mg Tabs (Aspirin) ..... One tab daily Enalapril Maleate 5 Mg Tabs (Enalapril maleate) ..... One tab. twice daily Metoprolol Tartrate 25 Mg Tabs (Metoprolol tartrate) ..... One half tab. twice daily Joceline Lagunas NP Cardiology Joceline Thomas P Cardiology Joceline Thomas P Cardiology:PATIENT W ILL CONTINUE ON ASA AND PLAVIX FOR 90 DAYS IN THE SETTING OF BARE METAL STENT PLACEMENT. Lexus Haney MD Cardiology: B P today: 149/88 Lexus Haney MD Cardiology:DISCUSSED IMPORTANCE OF TOBACCO CESSATION WITH PATIENT AND HIS FAMILY. Lexus Haney MD Date Name Stress Regadenoson Renal Artery Duplex Complete Echo COMPREHENSIVE METABO LIC PANEL, W/EGFR Lipoprotein (a) LIPID PANEL Complete Echo Complete Echo MRI, Spine: Cervical CBC (INCLUDES DIFF/P LT) LIPID PANEL COMPREHENSIVE METABO LIC PANEL, W/EGFR Carotid Duplex Bilat eral Complete Echo Arterial Duplex Bi-L ower EX B TYPE NATRIURETIC P EPTIDE (BNP) COMPREHENSIVE METABO LIC PANEL, W/EGFR Renal Artery Duplex Kidney Ultrasound Carotid Duplex Bilat eral Complete Echo Stress Exercise Card iolite Vitamin D, 25-Hydrox y VITAMIN B12/FOLATE, SERUM PANEL HEMOGLOBIN A1c THYROID PANEL WITH T SH, 3RD GENERATION LIPID PANEL B TYPE NATRIURETIC P EPTIDE (BNP) COMPREHENSIVE METABO LIC PANEL, W/EGFR Sleep Study Home Vitamin D, 25-Hydrox y VITAMIN B12/FOLATE, SERUM PANEL HEMOGLOBIN A1c THYROID PANEL WITH T SH, 3RD GENERATION LIPID PANEL B TYPE NATRIURETIC P EPTIDE (BNP) COMPREHENSIVE METABO LIC PANEL, W/EGFR Arterial Duplex Bi-L ower EX STR - Adenosine Complete Echo Carotid Duplex Bilat eral 6 minute walk test Ambulatory Oximetry DLCO - 93013 FRC - 60059 FVC - 87956 Arterial Duplex Bi-L ower EX X-Ray, Other Carotid Duplex Bilat eral Complete Echo STR - Nuclear Carotid Duplex Bilat eral Arterial Duplex Bi-L ower EX HISTORY OF PROCEDURES Procedure Date Procedure Name Provider Procedure Notes S tatus EKG Lexus Haney MD completed EKG Lexus Haney MD completed EKG Lexus Haney MD completed EKG Lexus Haney MD completed EKG Lexus Haney MD completed EKG Lexus Haney MD completed EKG Lexus Haney MD completed Ultrasound, retroperitoneal, complete Lexus Haney MD completed Cardiolite, 2 units Lexus napoles MD completed SPECT Images Lexus Haney MD completed Stress EKG Lexus Haney MD completed EKG Lexus Haney MD completed EKG Lexus Haney MD completed EKG Lexus Haney MD completed EKG Lexus Haney MD completed EKG Lexus Haney MD completed SNOMED-CT: [id number] Current Medications Documented Lexus Haney MD completed Stress EKG Sheyla Bhardwaj MD complet ed Cardiolite, 2 units Lexus napoles MD completed SPECT Images Sheyla Bhardwaj MD compl eted EKG Lexus Haney MD completed SNOMED-CT: [id number] Current Medications Documented Lexus Haney MD completed EKG Lexus Haney MD completed SNOMED-CT: [id number] Current Medications Documented Lexus Haney MD completed EKG Lexus Haney MD completed SNOMED-CT: [id number] Current Medications Documented Lexus Haney MD completed SNOMED-CT: [id number] Smoking Cessation Counseling Lexus Haney MD completed SNOMED-CT: [id number] Physical Exam, Performed: Pulse Exam of Foot Lexus Haney MD completed EKG Lexus Haney MD completed SNOMED-CT: [id number] Current Medications Documented Lexus Haney MD completed FVC - 88475 Lexus Haney MD completed FRC - 70430 Lexus Haney MD completed DLCO - 99620 Lexus Haney MD completed
--- OUTSIDE RECORDS SUMMARY | 2024-05-06 15:19 | XMS_ITS | Patient Health Summary ---
Author Organization [facility] Address [facility] [place] [address] Care Team Providers Care Bill Cutter Name Role Phone Karla Eddy PA-C Primary Care Provide r Note from [facility],non-owned Affiliates and Associated Physician Practices is amultiple site organization consisting of ambulatory clinics and hospital sitesin [place], [place], [place]. This disclosure is being madepursuant to the Care Everywhere program and may not contain all information available regarding this patient. Last updated 17.[facility] Allergies No known active allergies Medications [...] transverse process of lumbar vertebra, initial encounter ([facility]) * CBC W/O DIFFERENTIAL(Performed 06/11/2021) * BLOOD [...] - 10.5 10 3/uL 10/16/2022 2:16 AM [facility] RBC 3.15(L) 4.30 - 5.70 10 6/uL 10/16/2022 2:16 AM [facility] Hemoglobin 9.3(L) 12.0 - 17.6 g/dL 10/16/2022 2:16 AM [facility] Hematocrit 28.0(L) 35.2 - 51.7 % 10/16/2022 2:16 AM [facility] MCV 88.9 80.7 - 98.3 fL 10/16/2022 2:16 AM [facility] MCH 29.5 26.7 - 34.0 pg 10/16/2022 2:16 AM [facility] MCHC 33.2 30.8 - 35.9 g/dL 10/16/2022 2:16 AM [facility] RDW-SD 42.7 36.0 - 50.0 fL 10/16/2022 2:16 AM [facility] RDW-CV 13.2 11.2 - 14.8 % 10/16/2022 2:16 AM [facility] Platelet Count 281 150 - 400 10 3/uL 10/16/2022 2:16 AM [facility] MPV 10.5 9.4 - 12.9 fL 10/16/2022 2:16 AM [facility] nRBC Absolute 0.00 0 10 3/uL 10/16/2022 2:16 AM [facility] nRBC Auto 0.0 0 /100 WBC 10/16/2022 2:16 AM [facility] Blood BLOOD SPECIMEN / Unknown Lab Venipuncture / Unknown 10/16/2022 1:43 AM CDT 10/16/2022 2:03 AM CDT Linda Young PA-C LAB - HEMATOLOGY ORDERABLES [facility] [address] [place] [address], [place] [phone] * (ABNORMAL) BASIC METABOLIC PANEL (CALCIUM TOTAL) (10/16/2022 1:43 AM CDT) Only the most recent of4 resultswithin the time period is included. BUN 22 7 - 26 mg/dL 10/16/2022 2:28 AM [facility] Creatinine 1.16 0.71 - 1.16 mg/dL 10/16/2022 2:28 AM [facility] Sodium 136 136 - 145 mmol/L 10/16/2022 2:28 AM [facility] Potassium 3.9 3.5 - 4.5 mmol/L 10/16/2022 2:28 AM [facility] Chloride 109(H) 98 - 107 mmol/L 10/16/2022 2:28 AM [facility] CO2 25 22 - 29 mmol/L 10/16/2022 2:28 AM [facility] Glucose 135(H) 70 - 115 mg/dL 10/16/2022 2:28 AM [facility] Calcium 8.2(L) 8.4 - 10.2 mg/dL 10/16/2022 2:28 AM [facility] Anion Gap 6(L) 8 - 18 10/16/2022 2:28 AM [facility] BUN/Creatinine Ratio 19 7 - 23 10/16/2022 2:28 AM [facility] Osmolality Calculated 287 270 - 300 mOsm/kg 10/16/2022 2:28 AM [facility] eGFR by CKD-EPI 73(L) >=90 mL/min/1.7 3 m2 10/16/2022 2:28 AM CDT [facility] Blood BLOOD SPECIMEN / Unknown Lab Venipuncture / Unknown 10/16/2022 1:43 AM CDT 10/16/2022 2:03 AM CDT Gee Real MD LAB - CHEMISTRY VITO MANZO Performing Organization Address [facility]/ZIP Co de Phone Number [address] [address], [place] [phone] * (ABNORMAL) PHOSPHORUS BLOOD (10/16/2022 1:43 AM CDT) Only the most recent of3 resultswithin the time period is included. Phosphorus 2.7(L) 2.8 - 5.1 mg/dL 10/16/2022 2:28 AM CDT [facility] Blood BLOOD SPECIMEN / Unknown Lab Venipuncture / Unknown 10/16/2022 1:43 AM CDT 10/16/2022 2:03 AM CDT Gee Real MD LAB - CHEMISTRY VITO MANZO Performing Organization Address [facility] Co de Phone Number [address] [address], [place] [phone] * MAGNESIUM BLOOD (10/16/2022 1:43 AM CDT) Only the most recent of3 resultswithin the time period is included. Magnesium 1.8 1.6 - 2.6 mg/dL 10/16/2022 2:28 AM CDT [facility] Blood BLOOD SPECIMEN / Unknown Lab Venipuncture / Unknown 10/16/2022 1:43 AM CDT 10/16/2022 2:03 AM CDT Gee Real MD LAB - CHEMISTRY VITO MANZO Performing Organization Address City/[facility]/ZIP Co de Phone Number [address] [address], [place] [phone] * XR SHOULDER RIGHT 2VW OR MORE [...] Report dictated by Varun Sung MD (residential advisor). > Dictated by Varun Sung MD (Hide Sorter) 10/15/2022 3:14 PM I, Maritza Ling MD [...] Report dictated by Varun Sung MD (residential advisor). > Dictated by Varun Sung MD (Hide Sorter) 10/15/2022 3:14 PM IMaritza MD have personally [...] Report dictated by Ronni Esqueda MD (residential advisor). IMaritza MD have personally reviewed and interpreted this examination/study. > Interpreting Provider: Maritza Ling MD on 10/15/2022 5:27 PM Narrative 10/15/2022 5:27 PM CDT PROCEDURE: XR HUMERUS RIGHT 2VW OR MORE, XR FOREARM RIGHT 2VW, XR WRIST RIGHT 2VW, XR ELBOW RIGHT 3VW OR MORE, DATE/TIME OF EXAM: 10/15/2022 3:05 PM, LOCATION [facility] INDICATION: G89.11: Acute pain due to trauma ADDITIONAL CLINICAL INFORMATION: Ordering Provider Reason For Exam: trauma (accession [id number]), pain (accession [id number]), pain (accession [id number]), biceps injury (accession [id number]) Technologist Note: Additional: COMPARISON: None. FINDINGS: Right [...] DATE/TIME OF EXAM: 10/15/2022 3:05 PM, LOCATION [facility] INDICATION: G89.11: Acute pain due to trauma ADDITIONAL CLINICAL INFORMATION: Ordering Provider Reason For Exam: trauma (accession [id number]), pain (accession [id number]), pain (accession [id number]), biceps injury(accession [id number]) Technologist Note: Additional: COMPARISON: None. FINDINGS: Right [...] Report dictated by Ronni Esqueda MD (residential advisor). IMaritza MD have personally reviewed and interpreted [...] Report dictated by Ronni Esqueda MD (residential advisor). Maritza Leija MD have personally reviewed and interpreted this examination/study. > Interpreting Provider: Maritza Ling MD on 10/15/2022 5:27 PM Narrative 10/15/2022 5:27 PM CDT PROCEDURE: XR HUMERUS RIGHT 2VW OR MORE, XR FOREARM RIGHT 2VW, XR WRIST RIGHT 2VW, XR ELBOW RIGHT 3VW OR MORE, DATE/TIME OF EXAM: 10/15/2022 3:05 PM, LOCATION [facility] INDICATION: G89.11: Acute pain due to trauma ADDITIONAL CLINICAL INFORMATION: Ordering Provider Reason For Exam: trauma (accession [id number]), pain (accession [id number]), pain (accession [id number]), biceps injury (accession [id number]) Technologist Note: Additional: COMPARISON: None. FINDINGS: Right [...] MORE, DATE/TIME OF EXAM: 10/15/2022 3:05 PM, [facility] INDICATION: G89.11: Acute pain due to trauma ADDITIONAL CLINICAL INFORMATION: Ordering Provider Reason For Exam: trauma (accession [id number]), pain (accession [id number]), pain (accession [id number]), biceps injury(accession [id number]) Technologist Note: Additional: COMPARISON: None. FINDINGS: Right [...] Report dictated by Ronni Esqueda MD (residential advisor). Maritza Leija MD have personally reviewed and [...] Report dictated by Ronni Esqueda MD (residential advisor). Maritza Leija MD have personally reviewed and interpreted this examination/study. > Interpreting Provider: Maritza Ling MD on 10/15/2022 5:27 PM Narrative 10/15/2022 5:27 PM CDT PROCEDURE: XR HUMERUS RIGHT 2VW OR MORE, XR FOREARM RIGHT 2VW, XR WRIST RIGHT 2VW, XR ELBOW RIGHT 3VW OR MORE, DATE/TIME OF EXAM: 10/15/2022 3:05 PM, LOCATION [facility] INDICATION: G89.11: Acute pain due to trauma ADDITIONAL CLINICAL INFORMATION: Ordering Provider Reason For Exam: trauma (accession [id number]), pain (accession [id number]), pain (accession [id number]), biceps injury (accession [id number]) Technologist Note: Additional: COMPARISON: None. FINDINGS: Right [...] DATE/TIME OF EXAM: 10/15/2022 3:05 PM, LOCATION [facility] INDICATION: G89.11: Acute pain due to trauma ADDITIONAL CLINICAL INFORMATION: Ordering Provider Reason For Exam: trauma (accession [id number]), pain (accession [id number]), pain (accession [id number]), biceps injury(accession [id number]) Technologist Note: Additional: COMPARISON: None. FINDINGS: Right [...] Report dictated by Ronni Esqueda MD (residential advisor). IMaritza MD have personally reviewed and interpreted this examination/study. > Interpreting Provider: Maritza Ling MD on 10/15/2022 5:27 PM Lucy Vaughan DO DIAGNOSTIC IMAGING O RDERABLES * (ABNORMAL) C-REACTIVE PROTEIN (10/15/2022 1:30 PM CDT) C-Reactive Protein 6.5(H) <=0.5 mg/dL 10/15/2022 2:19 PM CDT [facility] Blood BLOOD SPECIMEN / Unknown Lab Venipuncture / Unknown 10/15/2022 1:30 PM CDT 10/15/2022 1:54 PM CDT Lucy Vaughan DO LAB - CHEMISTRY JUAN JOSEE ANAIS Performing Organization Address [facility] Co de Phone Number [facility] [address] [place] [phone], [place] [phone] * (ABNORMAL) ERYTHROCYTE SEDIMENTATION RATE (10/15/2022 1:30 PM CDT) Erythrocyte Sedimentation Rate Westergren 37(H) 0 - 20 MM/HR 10/15/2022 2:15 PM CDT [facility] Blood BLOOD SPECIMEN / Unknown Lab Venipuncture / Unknown 10/15/2022 1:30 PM CDT 10/15/2022 1:55 PM CDT Lucy Vaughan DO LAB - HEMATOLOGY ORD ERABLES [facility] [address] [place] [address], [place] [phone] * XR ELBOW RIGHT 3VW OR MORE (10/15/2022 1:04 PM CDT) Anatomical Region Laterality Modality Upper Extremity Radiographic Samantha ging 10/15/2022 3:38 PM CDT Impressions 10/15/2022 5:27 PM CDT IMPRESSION: No acute fracture or dislocation identified. Report dictated by Ronni Esqueda MD (residential advisor). Maritza Leija MD have personally reviewed and interpreted this examination/study. > Interpreting Provider: Maritza Ling MD on 10/15/2022 5:27 PM Narrative 10/15/2022 5:27 PM CDT PROCEDURE: XR HUMERUS RIGHT 2VW OR MORE, XR FOREARM RIGHT 2VW, XR WRIST RIGHT 2VW, XR ELBOW RIGHT 3VW OR MORE, DATE/TIME OF EXAM: 10/15/2022 3:05 PM, LOCATION [facility] INDICATION: G89.11: Acute pain due to trauma ADDITIONAL CLINICAL INFORMATION: Ordering Provider Reason For Exam: trauma (accession [id number]), pain (accession [id number]), pain (accession [id number]), biceps injury (accession [id number]) Technologist Note: Additional: COMPARISON: None. FINDINGS: Right [...] DATE/TIME OF EXAM: 10/15/2022 3:05 PM, LOCATION [facility] INDICATION: G89.11: Acute pain due to trauma ADDITIONAL CLINICAL INFORMATION: Ordering Provider Reason For Exam: trauma (accession [id number]), pain (accession [id number]), pain (accession [id number]), biceps injury(accession [id number]) Technologist Note: Additional: COMPARISON: None. FINDINGS: Right [...] Report dictated by Ronni Esqueda MD (residential advisor). IMaritza MD have personally reviewed and interpreted this examination/study. > Interpreting Provider: Maritza Ling MD on 10/15/2022 5:27 PM Lucy Vaughan DO DIAGNOSTIC IMAGING O RDERABLES * (ABNORMAL) LIPID PROFILE (10/15/2022 8:26 AM CDT) [facility] Cholesterol Total 140 <200 mg/dL 10/15/2022 9:02 AM CDT [facility] HDL 35(L) >40 mg/dL 10/15/2022 9:02 AM CDT [facility] Comment: ATP III Classification of HDL Cholesterol: <40 mg/dL: Considered a major risk factor. >60 mg/dL: Considered a negative risk factor. LDL Calculated 94 <100 mg/dL 10/15/2022 9:02 AM T [facility] Comment: ATP III Classification of LDL Cholesterol: <100 mg/dL: Optimal 100 - 129 mg/dL: Near Optimal/Above Optimal 130 - 159 mg/dL: Borderline High 160 - 189 mg/dL: High >190 mg/dL: Very High Triglycerides 53 <150 mg/dL 10/15/2022 9:02 AM T [facility] Comment: ATP III Classification of Triglycerides: <150 mg/dL: Normal 150 - 199 mg/dL: Borderline High 200 - 400 mg/dL: High >500 mg/dL: Very High Blood BLOOD SPECIMEN / Unknown Lab Venipuncture / Unknown 10/15/2022 8:26 AM CDT 10/15/2022 8:31 AM CDT Gee Real MD LAB - CHEMISTRY VITO MANZO [facility] [address] [place] [address], [place] [phone] * CULTURE WOUND+GRAM STAIN (10/15/2022 2:03 AM CDT) Culture No growth SHRUTHI 10/17/2022 6:16 AM CDT [facility] Gram Stain Heavy Red blood cells 10/17/2022 6:16 AM CDT [facility] Gram Stain Light Polymorphonuclear cells 10/17/2022 6:16 AM CDT [facility] Gram Stain No organisms seen 023 6:16 AM CDT [facility] Microbiology ENTIRE UPPER LIMB / Unknown Collection / Unknown 10/15/2022 2:03 AM CDT 10/15/2022 2:18 AM CDT Deshawn Barnett MD LAB - MICROBIOLOGY ORDERABLES [facility] [address] [place] [address], [place] [phone] * CULTURE ANAEROBE (10/15/2022 2:02 AM CDT) Culture No anaerobic organisms isolated SHRUTHI 10/20/2022 3:02 PM CDT [facility] Microbiology ENTIRE UPPER LIMB / Unknown Collection / Unknown 10/15/2022 2:02 AM CDT 10/15/2022 2:18 AM CDT Deshawn Barnett MD LAB - MICROBIOLOGY ORDERABLES [facility] [address] [place] [address], [place] [phone] * ETT LINE PERFORMABLE (10/15/2022 1:46 AM CDT) Narrative Olamide Rankin DO - 10/15/2022 1:46 AM CDT Olamide Rankin DO 10/15/2022 1:47 AM Endotracheal Tube Placement: Patient Location: OR. Intubation Event Date/Time: 10/15/2022 1:42 AM Procedure: intubation ([id number]). Procedure Section: Sedation: IV sedation. Indications for [...] resultswithin the time period is included. Pathologist [facility] Culture No growth day 5 SHRUTHI 10/20/2022 1:30 AM CDT [facility] Blood PERIPHERAL BLOOD / Unknown Venipuncture / Unknown 10/14/2022 11:41 PM CDT 10/14/2022 11:49 PM CDT Luis A Marei MD LAB - MICROBIOL OGY ORDERABLES Performing Organization Address City/[facility]/ZIP Co de Phone Number [facility] [address] [place] [address], [place] [phone] * TYPE + SCREEN PANEL (10/14/2022 11:25 PM CDT) Only the most recent of2 resultswithin the time period is included. Pathologist [facility] Antibody Screen NEG 12:43 AM CDT [facility] ABO Rh A POS 10/15/2022 12:43 AM CDT [facility] Blood Bank BLOOD SPECIMEN / Unknown Venipuncture / Unknown 10/14/2022 11:25 PM CDT 10/14/2022 11:50 PM CDT Luis A Marie MD LAB - BLOOD BAN K ORDERABLES Performing Organization Address City/[facility]/ZIP Co de Phone Number [facility] [address] [place] [address], [place] [phone] * (ABNORMAL) CBC W AUTO DIFFERENTIAL (10/14/2022 10:44 PM CDT) Only the most recent of2 resultswithin the time period is included. WBC 14.8(H) 3.5 - 10.5 10 3/uL 10/14/2022 11:52 PM CDT [facility] RBC 3.82(L) 4.30 - 5.70 10 6/uL 10/14/2022 11:52 PM CDT [facility] Hemoglobin 11.2(L) 12.0 - 17.6 g/dL 10/14/2022 11:52 PM CDT [facility] Hematocrit 34.6(L) 35.2 - 51.7 % 10/14/2022 11:52 PM [facility] MCV 90.6 80.7 - 98.3 fL 10/14/2022 11:52 PM [facility] MCH 29.3 26.7 - 34.0 pg 10/14/2022 11:52 PM [facility] MCHC 32.4 30.8 - 35.9 g/dL 10/14/2022 11:52 PM [facility] RDW-SD 44.4 36.0 - 50.0 fL 10/14/2022 11:52 PM [facility] RDW-CV 13.4 11.2 - 14.8 % 10/14/2022 11:52 PM [facility] Platelet Count 265 150 - 400 10 3/uL 10/14/2022 11:52 PM [facility] Comment: Platelet count verified by slide scan. This is an appended report. These results have been appended to a previously preliminary verified report. MPV 10/14/2022 11:52 PM [facility] Comment:Unable to Report Immature Platelet Fraction 10/14/2022 11:52 PM [facility] Comment:Unable to Report nRBC Absolute 0.00 0 10 3/uL 10/14/2022 11:52 PM [facility] nRBC Auto 0.0 0 /100 WBC 10/14/2022 11:52 PM [facility] Neutrophils % 62.4 35.0 - 70.0 % 10/14/2022 11:52 PM [facility] Lymphocytes % 21.9 20.0 - 43.0 % 10/14/2022 11:52 PM [facility] Monocytes % 13.4(H) 5.0 - 13.0 % 10/14/2022 11:52 PM [facility] Eosinophils % 1.1 0.0 - 6.0 % 10/14/2022 11:52 PM [facility] Basophil % 0.7 0.0 - 2.0 % 10/14/2022 11:52 PM [facility] Neutrophils Absolute 9.25(H) 1.60 - 7.00 10 3/uL 10/14/2022 11:52 PM T [facility] Lymphocyte Absolute 3.24 1.10 - 3.90 10 3/uL 10/14/2022 11:52 PM T [facility] Monocytes Absolute 1.98(H) 0.26 - 1.07 10 3/uL 10/14/2022 11:52 PM T [facility] Eosinophils Absolute 0.16 0.00 - 0.47 10 3/uL 10/14/2022 11:52 PM T [facility] Basophils Absolute 0.10(H) 0.00 - 0.08 10 3/uL 10/14/2022 11:52 PM [facility] Immature Granulocytes % 0.5 0.0 - 1.0 % 10/14/2022 11:52 PM [facility] Immature Granulocytes Absolute 0.07 10/14/2022 11:52 PM [facility] Blood BLOOD SPECIMEN / Unknown Venipuncture / Unknown 10/14/2022 10:44 PM CDT 10/14/2022 10:55 PM CDT Luis A Marie MD LAB - HEMATOLOG Y ORDERABLES Performing Organization Address City/State/[facility] Co de Phone Number [facility] [address] [place] [address], [place] [phone] * (ABNORMAL) COMPREHENSIVE METABOLIC PANEL (10/14/2022 10:44 PM CDT) BUN 15 7 - 26 mg/dL 10/14/2022 11:20 PM [facility] Creatinine 1.05 0.71 - 1.16 mg/dL 10/14/2022 11:20 PM [facility] Sodium 134(L) 136 - 145 mmol/L 10/14/2022 11:20 PM [facility] Potassium 3.7 3.5 - 4.5 mmol/L 10/14/2022 11:20 PM [facility] Chloride 108(H) 98 - 107 mmol/L 10/14/2022 11:20 PM [facility] CO2 23 22 - 29 mmol/L 10/14/2022 11:20 PM [facility] Glucose 97 70 - 115 mg/dL 10/14/2022 11:20 PM [facility] Calcium 8.3(L) 8.4 - 10.2 mg/dL 10/14/2022 11:20 PM [facility] Protein Total 6.2 6.0 - 8.3 g/dL 10/14/2022 11:20 PM [facility] Albumin 2.7(L) 3.4 - 5.0 g/dL 10/14/2022 11:20 PM [facility] Bilirubin Total 0.5 0.2 - 1.2 mg/dL 10/14/2022 11:20 PM [facility] Alkaline Phosphatase 74 40 - 150 U/L 10/14/2022 11:20 PM [facility] ALT 22 5 - 55 U/L 10/14/2022 11:20 PM [facility] AST 20 5 - 34 U/L 10/14/2022 11:20 PM [facility] Anion Gap 7(L) 8 - 18 10/14/2022 11:20 PM [facility] BUN/Creatinine Ratio 14 7 - 23 10/14/2022 11:20 PM [facility] Osmolality Calculated 279 270 - 300 mOsm/kg 10/14/2022 11:20 PM [facility] Albumin/Globulin Ratio 0.8(L) 1.1 - 2.3 10/14/2022 11:20 PM [facility] eGFR by CKD-EPI 82(L) >=90 mL/min/1.7 3 m2 10/14/2022 11:20 PM [facility] Blood BLOOD SPECIMEN / Unknown Venipuncture / Unknown 10/14/2022 10:44 PM CDT 10/14/2022 10:55 PM CDT Luis A Marie MD LAB - CHEMISTRY ORDERABLES [facility] [address] [place] [address], [place] [phone] * LACTIC ACID BLOOD (10/14/2022 10:44 PM CDT) Lactic Acid-Stat 1.4 <=2.0 mmol/L 10/14/2022 11:15 PM CDT [facility] Blood BLOOD SPECIMEN / Unknown Venipuncture / Unknown 10/14/2022 10:44 PM CDT 10/14/2022 10:55 PM CDT Luis A Marie MD LAB - CHEMISTRY ORDERABLES [facility] [address] [place] [address], [place] [phone] * XR LUMBAR SPINE 2 OR 3VW [...] Report dictated by Franklyn Blakely MD (residential advisor). Dr. UDAY Leija MD, FRTRUDI have personally [...] Report dictated by Franklyn Blakely MD (residential advisor). I, Dr. UDAY DENNIS MD, FRCR have personally reviewedand interpreted this examination/study. This report was electronically signed by UDAY DENNIS MD, FRCR on 06/12/2021 3:18 PM . Yun Avalos [employer]BURET[employer] REPAIRER DIAGNOSTIC IMAGIN G ORDERABLES * (ABNORMAL) URINE DRUG SCREEN IMMUNOASSAY (06/12/2021 12:21 AM CDT) [facility] Amphetamines Screen Urine Positive(A) Negative : < 1000 ng/mL 06/12/2021 12:45 AM CDT [facility] Comment: Positive urine amphetamine screening results should be confirmed by another generally accepted non-immunological method such as gas chromatography or mass spectrometry. Barbiturates Screen Urine Negative Negative : < 200 ng/mL 06/12/2021 12:45 AM [facility] Benzodiazepine Screen Urine Negative Negative : < 200 ng/mL 06/12/2021 12:45 AM [facility] Opiates Urine Positive(A) Negative : < 300 ng/mL 06/12/2021 12:45 AM [facility] Comment:Positive urine opiat e screening results should be confirmed by another generally accepted non-immunological method such as gas chromatography or mass spectrometry. Cocaine Metabolites Urine Negative Negative : < 300 ng/mL 06/12/2021 12:45 AM [facility] Phencyclidine Screen Urine Negative Negative : < 25 ng/ml 06/12/2021 12:45 AM [facility] Cannabinoids Screen Urine Positive(A) Negative : <50 ng/mL 06/12/2021 12:45 AM [facility] Comment:Positive urine canna binoids (THC) screening results should be confirmed by another generally accepted non-immunological method such as gas chromatography or mass spectrometry. Methadone Screen Urine Negative Negative : < 300 ng/mL 06/12/2021 12:45 AM [facility] Fentanyl Screen Urine Positive(A) Negative : <1.0 ng/mL 06/12/2021 12:45 AM [facility] Comment:Positive urine fenta nyl screening results should be confirmed by another generally accepted non-immunological method such as gas chromatography or mass spectrometry. Urine URINE / Unknown Collection / Unknown 06/12/2021 12:21 AM CDT 06/12/2021 12:25 AM [facility] - 06/12/2021 12:45 AM [facility] The Urine Toxicology Screening Panel does not screen for Propoxyphene, Meprobamate, Carisoprodol, Trazodone, beap-xga-vbohcyk medications and/or volatiles (Acetone, Isopropanol, Methanol or Ethylene Glycol). Ethanol, Salicylate, Acetaminophen, Tricyclic Antidepressants and several therapeutic drugs may be individually assayed in serum or plasma specimen. Toxicology testing by the [facility] is an aid to medical diagnosis and treatment of patients. No documented chain of custody was maintained. Results are intended to be used for clinical purposes only. Da Mariee MD LAB - URINE CHEMIS TRY ORDERABLES Performing Organization Address City/State/[facility] Co de Phone Number [facility] [address] [place] [address], [place] [phone] * BLOOD TYPE VERIFICATION (06/11/2021 8:42 AM CDT) ABO Rh A POS 06/11/2021 9:2 0 AM CDT [facility] Blood Bank BLOOD SPECIMEN / Unknown Lab Venipuncture / Unknown 06/11/2021 8:42 AM CDT 06/11/2021 8:49 AM CDT Da Mariee MD LAB - BLOOD BANK O RDERABLES Performing Organization Address [facility] de Phone Number [facility] [address] [place] [address], [place] [phone] * EKG 12-LEAD (06/11/2021 8:38 AM CDT) Ventricular Rate 82 BPM H MUSE Atrial Rate 82 BPM [facility] MUSE P-R Interval 158 ms [facility] MUSE QRS Duration ms 96 ms [facility] MUSE Q-T Interval ms 402 ms [facility] MUSE QTC Calculation (Bezet) 469 ms [facility] MUSE Calculated P [place] 70 degrees SL MUSE Calculated R [place] 58 degrees [facility] MUSE Calculated T [place] 56 degrees [facility] MUSE Interpretation EKG NORMAL SINUS RHYTHM NORMAL ECG NO PREVIOUS ECGS AVAILABLE Confirmed by Darrion De Leon ([id number]) on 06/13/2021 6:37:50 AM [facility] MUSE 06/11/2021 8:38 AM CDT 06/13/2021 6:37 AM CDT Da Mariee MD ECG ORDERABLES Performing Organization Address [facility] Co de Phone Number [facility] MUSE * XR PELVIS 1 OR 2VW (06/11/2021 8:35 AM CDT) Anatomical Region Laterality Modality Pelvis Radiographic Samantha ging 06/11/2021 8:45 AM CDT Impressions 06/11/2021 11:48 AM CDT IMPRESSION: No acute fracture identified. Dictated by Franklyn Blakely MD (residential advisor). This report was approved by Franklyn Blakely [...] identified. Dictated by Franklyn Blakely MD (residential advisor). This report was approved by Franklyn Blakely [...] rib. Report drafted by Ronni Esqueda MD (Hide Sorter). Dr. IRMA Leija have personally reviewed and [...] rib. Report drafted by Ronni Esqueda MD (Hide Sorter). I, Dr. IRMA CARLSON have personally reviewed [...] rib. Report drafted by Ronni Esqueda MD (Hide Sorter). I, Dr. IRMA CARLSON have personally reviewed [...] stenosis and central canal stenosis Procedure Note Imra Carlson MD - 06/11/2021 CT HEAD WO [...] rib. Report drafted by Ronni Esqueda MD (Hide Sorter). Dr. IRMA Leija have personally reviewed and [...] rib. Report drafted by Ronni Esqueda MD (Hide Sorter). Dr. IRMA Leija have personally reviewed and [...] rib. Report drafted by Ronni Esqueda MD (Hide Sorter). I, Dr. IRMA CARLSON have personally reviewed [...] rib. Report drafted by Ronni Esqueda MD (Hide Sorter). I, Dr. IRMA CARLSON have personally reviewed [...] rib. Report drafted by Ronni Esqueda MD (Hide Sorter). I, Dr. IRMA CARLSON have personally reviewed and interpreted this examination/study. This report was electronically signed by IRMA CARLSON on 06/11/2021 3:19 PM . Da Mariee MD CT ORDERABLES * (ABNORMAL) TEG 6 GLOBAL HEMOSTASIS W/ LYSIS (06/11/2021 8:27 AM CDT) Citrated Kaolin R (Reaction Time) 4.1(L) 4.6 - 9.1 min 06/11/2021 9:30 AM CDT [facility] Citrated Kaolin LY30 (Lysis) 1.1 0.0 - 2.6 % 06/11/2021 9:30 AM CDT [facility] Citrated RapidTEG MA (Max Amplitude) 66.4 52.0 - 70.0 mm 06/11/2021 9:30 AM CDT [facility] Citrated Functional Fibrinogen MA (Max Amplitude) 24.9 15.0 - 32.0 mm 06/11/2021 9:30 AM CDT [facility] Blood BLOOD SPECIMEN / Unknown Venipuncture / Unknown 06/11/2021 8:27 AM CDT 06/11/2021 8:32 AM CDT Da Mariee MD LAB - HEMATOLOGY O RDERABLES [facility] [address] [address], [place] [phone] * (ABNORMAL) TEG 6S PLATELET MAPPING (06/11/2021 8:27 AM CDT) TEGPLM (Max Amplitude) Koalin 66 53 - 68 mm 06/11/2021 9:30 AM CDT [facility] TEGPLM (Max Amplitude) ACTF 14 2 - 19 mm 06/11/2021 9:30 AM CDT [facility] TEGPLM (Max Amplitude) ADP 60 45 - 69 mm 06/11/2021 9:30 AM CDT [facility] TEGPLM (Max Amplitude) AA 18(L) 51 - 71 mm 06/11/2021 9:30 AM T [facility] TEGPLM %Inhibition ADP 12 0 - 17 % 06/11/2021 9:30 AM T [facility] TEGPLM %Inhibition AA 93(H) 0 - 11 % 06/11/2021 9:30 AM T [facility] TEGPLM %Aggregation ADP 89 83 - 100 % 06/11/2021 9:30 AM [facility] TEGPLM % Aggregation AA 7(L) 89 - 100 % 06/11/2021 9:30 AM [facility] Blood BLOOD SPECIMEN / Unknown Venipuncture / Unknown 06/11/2021 8:27 AM CDT 06/11/2021 8:31 AM CDT Da Mariee MD LAB - HEMATOLOGY O RDERABLES [address] [address], [place] [phone] * PTT [facility] (06/11/2021 8:27 AM CDT) APTT 25.4 23.0 - 38.4 Seconds 06/11/2021 8:51 AM [facility] Comment:Suggested therapeuti c range for full dose I.V. unfractionated heparin therapy for venous thromboembolism is 71 to 109 seconds. Blood BLOOD SPECIMEN / Unknown Venipuncture / Unknown 06/11/2021 8:27 AM CDT 06/11/2021 8:31 AM CDT Da Mariee MD LAB - COAGULATION ORDERABLES [address] [address], [place] [phone] * PT-INR [facility] (06/11/2021 8:27 AM CDT) PT 14.1 12.1 - 14.8 Seconds 06/11/2021 8:50 AM [facility] INR 1.1 See Comment 06/11/2021 8:50 AM CDT [facility] Comment:The suggested therap eutic range for standard coumadin (warfarin) therapy is an INR of 2.0-3.0. For high-risk patients (Mechanical Mitral Valve Prosthesis, etc.), the suggested prophylactic therapeutic range is an INR of 2.5-3.5. Blood BLOOD SPECIMEN / Unknown Venipuncture / Unknown 06/11/2021 8:27 AM CDT 06/11/2021 8:31 AM CDT Da Mariee MD LAB - COAGULATION ORDERABLES [address] [address], [place] [phone] * (ABNORMAL) CK BLOOD (06/11/2021 8:27 AM CDT) CK Total 377(H) 30 - 200 U/L 06/11/2021 9:06 AM T [facility] Blood BLOOD SPECIMEN / Unknown Venipuncture / Unknown 06/11/2021 8:27 AM CDT 06/11/2021 8:33 AM CDT Da Mariee MD LAB - CHEMISTRY OR DERABLES [address] [address], [place] [phone] * ALCOHOL ETHYL BLOOD (06/11/2021 8:27 AM CDT) Ethanol (mg/dL) <10 <10 mg/dL 9:06 AM CDT [facility] Ethanol Calculated (g/dL) <0.010 <0.010 g/dL 06/11/2021 9:06 AM T [facility] Blood BLOOD SPECIMEN / Unknown Venipuncture / Unknown 06/11/2021 8:27 AM CDT 06/11/2021 8:33 AM CDT Narrative [facility] - 06/11/2021 9:06 AM CDT Ethanol Interp <10: None Detected. Depression of TABULATING CLERK: >100 mg/dl Potentially Critical: >250 mg/dl [...] - CHEMISTRY OR DERABLES Performing Organization Address City/[facility]/ZIP Co de Phone Number [facility] [address] [place] [address], [place] [phone] * (ABNORMAL) CREATININE - POCT INTERFACED (06/11/2021 8:21 AM CDT) [facility] Creatinine POCT 1.66(H) 0.30 - 1.30 mg/dL 06/11/2021 8:23 AM CDT [facility] eGFR 47(L) >90 mL/min/1.7 3 m2 06/11/2021 8:23 AM CDT [facility] Blood BLOOD SPECIMEN / Unknown 06/11/2021 8:21 AM CDT 06/11/2021 8:23 AM CDT Da Mariee MD LAB - POINT OF CAR E ORDERABLES Performing Organization Address [facility] de Phone Number [address] [address], [place] [phone] * CARDIAC RHYTHM STRIP ORDER (02/25/2009 9:31 AM [facility]) Narrative 02/25/2009 9:31 AM [facility] Ordered by an unspecified provider. Transcriptions Document, Scanned - 02/21/2009 12:00 AM [facility] Scanned Document CARDIAC SERVICES ORD ERABLES * XR SPINE 1 VIEW (02/21/2009 2:11 PM [facility]) Anatomical Region Laterality Modality Spine Radiographic Samantha ging 02/21/2009 3:33 PM [facility] Impressions 02/21/2009 4:21 PM [facility] Intraoperative evaluation. Narrative 02/21/2009 4:21 PM [facility] LUMBAR SPINE, SINGLE LATERAL VIEW HISTORY: Intraoperative [...] evaluation. Heber Tolentino MD DIAGNOSTIC IMAGING O [facility] Care Teams Bill Cutter Relationship Specialty Start Date End Date Karla Eddy PA-C [address] [place] [id number] PCP - General 07/17/20
--- OUTSIDE RECORDS SUMMARY | 2024-05-06 15:19 | XMS_ITS | Clinical Summary ---
Author Organization [facility] Address [facility] [place] [address] Care Team Providers Care Construction Grip Name Role Phone Karla Eddy PA-C Primary Care Provide r Source Comments [facility],non-owned Affiliates and Associated Physician Practices is amultiple site organization consisting of ambulatory clinics and hospital sitesin [place], [place], [place] and [place]. This disclosure is being madepursuant to the Care Everywhere program and may not contain all information available regarding this patient. Last updated [facility] [employer] Allergies No known active allergies Medications * [...] 06/11/2021 Immunizations Name Administration Dates Next Due [employer] primary monoval ent 12+ yr 0.3mL Purple [...] Total 140 <200 mg/dL 10/15/2022 9:02 AM [facility] HDL 35(L) >40 mg/dL 10/15/2022 9:02 AM [facility] Comment: ATP III Classification of HDL Cholesterol: <40 mg/dL: Considered a major risk factor. >60 mg/dL: Considered a negative risk factor. LDL Calculated 94 <100 mg/dL 10/15/2022 9:02 AM [facility] Comment: ATP III Classification of LDL Cholesterol: <100 mg/dL: Optimal 100 - 129 mg/dL: Near Optimal/Above Optimal 130 - 159 mg/dL: Borderline High 160 - 189 mg/dL: High >190 mg/dL: Very High Triglycerides 53 <150 mg/dL 10/15/2022 9:02 AM [facility] Comment: ATP III Classification of Triglycerides: <150 mg/dL: Normal 150 - 199 mg/dL: Borderline High 200 - 400 mg/dL: High >500 mg/dL: Very High Blood BLOOD SPECIMEN / Unknown Lab Venipuncture / Unknown 10/15/2022 8:26 AM CDT 10/15/2022 8:31 AM CDT Gee Real MD LAB - CHEMISTRY VITO Gillespie Organization Address City/State/ZIP Co de Phone Number [facility] [address] [place] [address], [facility] [phone] from Last 3 Months or Most Recently Relevant to Health Maintenance Advance Directives * Full Code (Latest Code Status on File) Date Activated Date Inactivated Comments 10/15/2022 1:42 AM 10/16/2022 9:13 AM * Full Code Date Activated Date Inactivated Comments 06/11/2021 9:53 AM 06/12/2021 7:12 PM * Full Code Date Activated Date Inactivated Comments 02/21/2009 4:28 PM 02/22/2009 5:44 AM Care Teams Construction Grip Relationship Specialty Start Date End Date Karla Eddy PALatrellC [address] [place] [phone] PCP - General 07/17/20
--- OUTSIDE RECORDS SUMMARY | 2024-05-06 15:19 | XMS_ITS | Continuity of Care Document ---
Author Organization [facility] Address [address] [place] [address] Phone Care Team Providers Care Cyber Security Engineer Name Role Phone Gus Sims Unavailable Unavailable [...] Diagnoses Date Provider Providers Copied on Encounter [facility], [address] [place] [address] [address], [place], [place], [id number], [place] tel:[phone] SEC [facility] No Information 9-200 9 Levi Weber. [address] [facility] [address], [place], [address], [place]. tel:[phone] Office/outpat ient Visit, Est [facility], [address], [place], [place], [id number], tel:[phone] SEC [facility] No Information Mar-2 4-200 9 Krishnasamy Gus. [address] [facility] [address], [place], [address], [place]. tel:[phone] [facility], [address], [place], [place], [id number], [place] tel:[phone] SEC [facility] No Information Dec-1 5-200 8 Krishnasamy Gus. [address] [facility] [address], [place], [address], [place]. tel:[phone] [facility], [address], [place], [place], [id number], [place] tel:[phone] [facility] No Information Nov-1 1-200 8 Krishnasamy Gus. [address] [facility] [address], [place], [address], [place]. tel:[phone] [facility], [address], [place], [place], [id number], [place] tel:[phone] [facility] [place] No Information Oct-3 1-200 8 Krishnasamy Gus. [address] [facility] [address], [place], [address], [place]. tel:[phone] [facility], [address], [place], [place], [id number], [place] tel:[phone] [facility] No Information Oct-3 0-200 8 Krishnasamy Gus. [address] [facility] [address], [place], [address], [place]. tel:[phone] [facility], [address], [place], [place], [id number], [place] tel:[phone] SEC [facility] No Information Oct-2 4-200 8 Krishnasamy Gus. [address] [facility] [address], [place], [address], [place]. tel:[phone] [facility], [address], [place], [place], [id number], [place] tel:[phone] [facility] [place] No Information Oct-1 7-200 8 Krishnasamy Gus. [address] [facility] [place] [address], [place], [address], [place]. tel:[phone] [facility], [address], [place], [place], [id number], [place] tel:[phone] [facility] No Information Oct-1 6-200 8 Krishnasamy Gus. [address] [facility] [place] [address], [place], [place], [facility] [place], [place]. tel:[phone] [facility], [address] [place] [address] [address], [place], [place], [id number], [place] tel:[phone] [facility] No Information Sep-2 4-200 8 Krishnasamy Gus. [address] [facility] [place] [address], [place], [place], [facility] [place], [place]. tel:[phone] Office/outpat ient Visit, [facility], [address] [place] [address] [address], [place], [place], [id number], [place] tel:[phone] [facility] [place] No Information Sep-0 9-200 8 Krishnasamy Gus. [address] [facility] [place] [address], [place], [address], [place]. tel:[phone] Office/outpat ient Visit, [facility], [address], [place], [place], [id number], [place] tel:[phone] [facility] [place] No Information Sep-0 3-200 8 Doisy Edward. [address], [place], [address], [place]. tel:[phone] [facility], [address], [place], [place], [id number], [place] tel:[phone] SEC [facility] No Information 8 [facility]. [address] [facility], [place], [place], [id number], [place]. tel:[phone] Referring Provider: Mahamed Newman [facility] [address], [place], [address]. tel:[phone] Family History Family Member Type Diagnosis Age At Onset No Information Payers Payer name Insurance type Covered republican ID Authoriza tion(s) No Information Social History [...]
--- NOTE | 2024-05-06 16:07 | ED_ITS ---
HPI - General Adult General Chief complaint: Neck Pain/Injury Stated complaint: NECK PAIN Time Seen by Provider: 05/06/24 14:38 History of Present Illness HPI narrative: 59-year-old male present to the emergency department for evaluation for left- sided torticollis. Patient states symptoms started approximately 2 days ago and worsened when he woke up in the morning. Patient does have some range of motion when turning his head to the right but limited wrist motion when turning his he ad to the left. Patient denies any recent falls or injuries. Patient denies any coughs colds or fevers. Patient denies any associated numbness or weakness and denies any change in bowel or bladder habits. Patient has no prior history of cervical surgeries. Patient does feel like he is having muscular spasms. Patient did try to take [id number] pain medications without significant improvement. Related Data Home Medications ?Medication ?Instructions ?Recorded ?Confirmed ?Last Taken ?Type aspirin 81 mg tablet,delayed 81 mg PO DAILY 05/27/20 08/28/21 06/07/20 History release clopidogrel 75 mg tablet 75 mg PO DAILY 05/27/20 08/28/21 06/07/20 History enalapril maleate 10 mg tablet 10 mg PO DAILY 05/27/20 08/28/21 06/07/20 History furosemide 20 mg tablet 20 mg PO DAILY 05/27/20 08/28/21 06/07/20 History metoprolol tartrate 25 mg tablet 25 mg PO BID 05/27/20 08/28/21 06/07/20 History Allergies Allergy/AdvReac Type Severity Reaction Status Date / Time No Known Allergies Allergy Verified 05/06/24 15:31 Review of Systems Review of Systems: All systems reviewed & are unremarkable except as noted in HPI and below [facility] Past Medical History Medical History CAD (coronary artery disease) Chronic kidney disease (CKD) stage G1/A2, glomerular filtration rate (GFR) equal to or greater than 90 mL/min/1.73 square meter and albuminuria creatinine ratio between 30-299 mg/g Hepatitis C infection Hyperlipidemia Hypertension Iron deficiency anemia Social History Social History Smoking packs per day: 1 Smoking cigarettes per day: 20.0 Years smoked: 46 Smoking pack-years: 46.00 Smoking status: Current every day smoker Tobacco type: cigarettes Alcohol intake: current Drinks per week: 2 Substance use type: does not use Living arrangements: with family Spiritual care concerns: No Exam Narrative: APPEARANCE: Well appearing, no pain, no distress, well-nourished. HEAD: normocephalic, atraumatic. EYES: PERRLA/EOMI, conjunctivae clear. NOSE: Normal no drainage EARS:TMS clear with good light reflex. THROAT: Pharynx clear, no exudate. NECK: Supple. No adenopathy, no masses. RESPIRATORY: Airway patent, respirations nonlabored. Clear to auscultation bilaterally, no rales, rhonchi, wheezing. CARDIOVASCULAR: Regular rate and rhythm without murmurs rubs or gallops. ABDOMINAL: Soft, nontender, nondistended, normal bowel sounds MUSCULOSKELETAL: Left posterior lateral muscular tenderness to palpation NEURO: Alert. Cranial nerves II through XII intact. Good gait. Good coordination SKIN: No abscess, no cellulitis, no rash Course Vital Signs Vital signs: Vital Signs Temperature 97.5 F L 05/06/24 14:08 Pulse Rate 119 H 05/06/24 14:08 Respiratory Rate 16 05/06/24 14:08 Blood Pressure 158/90 H 05/06/24 14:08 Pulse Oximetry 100 05/06/24 14:08 Temperature 97.5 F L 05/06/24 14:08 Pulse Rate 99 05/06/24 16:24 Respiratory Rate 18 05/06/24 16:24 Blood Pressure 149/88 H 05/06/24 16:24 Pulse Oximetry 100 05/06/24 16:24 Medical Decision Making [facility] Narrative Medical decision making narrative: 59-year-old male presenting to the emergency department for evaluation for left- sided torticollis. Patient denies any associated numbness or weakness. Patient denies any falls or injuries. Patient does have reproducible muscular tenderness. Patient was treated with IM Toradol and p.o. Flexeril and p.o. hydrocodone. Patient was updated on the results of the exam and plan for treatment home. Patient was also educated on reasons to return to the emergency department. All questions concerns were addressed patient was well-appearing at time of discharge. Differential Diagnosis Differential Diagnosis: Cellulitis, cervical radiculopathy, cervical strain, torticollis, muscular strain, wry neck Vital Signs Vital Signs: Vital Signs Temperature 97.5 F L 05/06/24 14:08 Pulse Rate 119 H 05/06/24 14:08 Respiratory Rate 16 05/06/24 14:08 Blood Pressure 158/90 H 05/06/24 14:08 Pulse Oximetry 100 05/06/24 14:08 Temperature 97.5 F L 05/06/24 14:08 Pulse Rate 99 05/06/24 16:24 Respiratory Rate 18 05/06/24 16:24 Blood Pressure 149/88 H 05/06/24 16:24 Pulse Oximetry 100 05/06/24 16:24 Discharge Plan Discharge Clinical Impression: Torticollis, Strain of neck muscle Patient Disposition: Home, Self-Care Condition: Stable Instructions: Antibiotic Form, Neck Pain (ED) Additional Instructions: Ibuprofen for pain control, Medrol Dosepak as directed. [place] for additional pain control. Flexeril for muscle spasm. Have close follow-up with your primary care physician. If you have any worsening symptoms and please call or return to the emergency department. Patient Language: Marshallese Prescriptions: New hydrocodone-acetaminophen 5-325 mg tablet 1 tablet PO Q12H PRN (Reason: pain) Qty: 14 0RF methylprednisolone [Medrol (Angel)] 4 mg tablets,dose pack See Rx Instructions .ROUTE .COMPLEX Qty: 21 0RF Rx Instructions: for 6 days cyclobenzaprine 10 mg tablet 10 mg PO BID PRN (Reason: muscle spasm) Qty: 14 0RF No Action enalapril maleate 10 mg tablet 10 mg PO DAILY clopidogrel 75 mg tablet 75 mg PO DAILY aspirin 81 mg tablet,delayed release (DR/EC) 81 mg PO DAILY furosemide 20 mg tablet 20 mg PO DAILY metoprolol tartrate 25 mg tablet 25 mg PO BID pantoprazole 40 mg tablet,delayed release (DR/EC) 40 mg PO QAM Qty: 30 5RF Follow-up/Referrals: Víctor,Sima Myers MD [Primary Care Provider] -
[2024-05-06] MEDS: CYCLOBENZAPRINE HCL 10 MG TABLET PO (16:10)
[2024-05-06] MEDS: KETOROLAC 30 MG/ML VIAL (*BKC) IM (16:10)
[2024-05-06] MEDS: HYDROcodone/acetaminophen (*CRX) 10-325 MG TABLET 1 TAB PO (16:10)
[2024-05-06 16:24] VITALS: BP 149/88; PULSE 99; RESP 18; O2SAT 100
== END 2024-05-06 16:43 | disposition home or self-care (01) ==
PROVIDERS: Emergency Provider Emergency Medicine; PCP Emergency Medicine
DX: M43.6 Torticollis (principal); S16.1XXA Strain of muscle, fascia and tendon at neck level, initial encounter; I25.10 Atherosclerotic heart disease of native coronary artery without angina pectoris; I12.9 Hypertensive chronic kidney disease with stage 1 through stage 4 chronic kidney disease, or unspecified chronic kidney disease; N18.1 Chronic kidney disease, stage 1; E78.5 Hyperlipidemia, unspecified; F17.210 Nicotine dependence, cigarettes, uncomplicated; Z86.19 Personal history of other infectious and parasitic diseases; X58.XXXA Exposure to other specified factors, initial encounter; Z79.02 Long term (current) use of antithrombotics/antiplatelets; Z79.82 Long term (current) use of aspirin; Z79.899 Other long term (current) drug therapy
CPT/HCPCS: 96372; 99283; A9270; J1885